=== PATIENT | male | born 1940 | race Caucasian/White ===

== ENCOUNTER 2016-04-12 15:18 | Emergency (ER) | payer MEDICARE ==
[~2016-04-12 15:18] MED LIST: ASPI-628 PO; ATOR20TA PO; HYDR25TA4 PO; LOSA25TA21 PO; Metoprolol Tartrate PO
[2016-04-12] MEDS ORDERED: fentaNYL-PF 50 mCg/mL 2 mL Inj ONE (15:27)
[2016-04-12] MEDS ORDERED: Vecuronium 1,000 mCg/mL 10 mL Inj ONE (15:28)
--- NOTE | 2016-04-12 15:28 | ED.REPORT ---
HPI-General Illness Date of Service Apr 12, 2016 ED Provider: Sukh Erick Patient is a 75 year old male who presents to the ED via EMS intubated s/p an unwitnessed to ground and becoming unresponsive. He was last known normal at 1440 when he was sitting on the couch watching TV. His went to go get the mail and when she returned, he was on the ground, unresponsive, and bleeding from his mouth. Per , he has not had a fever, numbness, or any other symptoms. also reports that he was normal today but was fatigued with a headache. EMS reports that he has not had vocalizations and his only movements have been some eye fluttering. He was given 20 etomidate and 200 succs en route. He is not anticoagulated but does take 81mg Aspirin daily. Nursing Notes Stated Complaint: INTUBATED Nursing Notes Reviewed: Yes Allergies: Coded Allergies: Penicillins (Verified Allergy, Unknown, 10/10/13) Scheduled ([Metoprolol Tartrate]) 25 MG TABLET 25 MG PO BID Aspirin (Aspir 81) 81 Mg Tablet.dr 81 MG PO DAILY Atorvastatin (Lipitor) 20 Mg Tablet 40 MG PO HS Hydrochlorothiazide (Hydrochlorothiazide) 25 Mg Tablet 25 MG PO DAILY Lisinopril (Lisinopril) 20 Mg Tablet 20 MG PO DAILY Losartan Potassium (Losartan Potassium) 25 Mg Tablet 25 MG PO DAILY General Time Seen by MD: 15:28 Chief Complaint Other (Unresponsive ) Hx Obtained From: Spouse, EMS Arrived By: Ambulance Sudden in Onset?: Yes Onset Occurred: 31 - 45 minutes ago Symptom Duration: Since onset Past Medical History Past Medical History NC- nonstemi Reports: Coronary artery disease, Hyperlipidemia, Hypertension, Stroke Past Surgical History Kidney stone removal Review of Systems Unable to Obtain ROS Intubated Physical Exam Vital Signs Vital Signs Date Time Temp Pulse Resp B/P Pulse Ox O2 Delivery O2 Flow Rate FiO2 04/13/16 00:08 75 20 132/73 100 Mechanical Ventilator ET Tube 04/12/16 15:58 100 t 35.8 BP 174/115, HR 87 Initial VS: Reviewed General/Constitutional: Well-developed Head / Eyes: Atraumatic ENT: Mucous membranes moist Neck: Supple Respiratory: Breath sounds normal Skin: Warm, Dry Alertness: Positive: Unresponsive Head / Eyes: Atraumatic, Normocephalic Trauma - Eye Specific: Negative: Raccoon eyes fasciculation around eyes ENT: Mucous membranes moist Mouth: Positive: Tongue abnormal Intubated. May have bit tongue Neck: Atraumatic Respiratory / Chest: Breath sounds = bilat Resp Distress / Stridor: Positive: Intubated Cardiovascular: Heart rate NL, Regular rhythm, Heart sounds NL, No gallop, No murmurs, No rubs Abdomen: Atraumatic, Soft, BS normoactive, No palpable mass, No pulsatile mass Skin: Atraumatic, Color NL, No rash, Warm, Dry Mental Status: Positive: Unresponsive Bilateral knee jerks Flaccid x4 No spontaneous movement Some responsiveness. Interpretation & Diagnostics Interpretation & Diagnostics: CT angiogram chest negative for PE, consilidation or atelectasis in bilateral lung bases. ABG on vent 100% 7.25/49/71.3/21- rate increased from 10-20 Lab Results Interpretation Result Diagram: 04/12/16 1529 04/12/16 1529 Test 04/12/16 15:29 04/12/16 16:05 04/12/16 16:57 White Blood Count 18.7th/mm3 (3.8-10.1) Red Blood Count 5.43mil/mm3 (4.40-5.80) Hemoglobin 15.8g/dL (13.8-17.2) Hematocrit 47.4% (41.0-50.0) Mean Corpuscular Volume 87.3fL (81-100) Mean Corpuscular Hemoglobin 29.1pg (27.0-35.0) Mean Corpuscular Hemoglobin Concent 33.3% (32.0-37.0) Red Cell Distribution Width 12.8% (12.3-15.4) Platelet Count 295bil/L (150-400) Neutrophils (%) (Auto) 68.8% (40-74) Lymphocytes (%) (Auto) 18.1% (14-46) Monocytes (%) (Auto) 10.1% (4-12) Eosinophils (%) (Auto) 0.5% (0-5) Basophils (%) (Auto) 1.0% (0-3) Sodium Level 144mEq/L (134-144) Potassium Level 3.8mEq/L (3.5-5.2) Chloride Level 102mEq/L (97-108) Carbon Dioxide Level 14mmol/L (18-29) Blood Urea Nitrogen 15mg/dL (8-27) Creatinine 1.23mg/dL (0.76-1.27) Estimat Glomerular Filtration Rate 61mL/min (>59) Glucose Level 147mg/dL (60-99) Calcium Level 8.7mg/dL (8.5-10.1) Total Bilirubin 0.5mg/dL (0.0-1.2) Aspartate Amino Transf (AST/SGOT) 22U/L (0-50) Alanine Aminotransferase (ALT/SGPT) 15U/L (0-44) Alkaline Phosphatase 63U/L (25-160) Troponin T < 0.010ug/L (0.0-0.011) Total Protein 8.0g/dL (6.4-8.4) Albumin 4.3g/dL (3.4-5.0) Hold Purple Top Tube Received (Received) Prothrombin Time 10.7sec (8.1-12.5) Prothromb Time International Ratio 1.00ratio Activated Partial Thromboplast Time 24.7sec (22.8-33.0) Hold Red Top Tube Received (Received) Hold [place] Top Tube Received (Received) Hold [place] Top Tube Received (Received) Urine Color Yellow (YELLOW) Urine Appearance Clear (CLEAR,HAZY) Urine pH 8.0 (5.0-8.0) Urine Specific [place] 1.020 (1.003-1.035) Urine Protein 300mg/dL (NEG,TRACE) Urine Glucose (UA) 500mg/dL (NEGATIVE) Urine Ketones Negativemg/dL (NEGATIVE) Urine Occult Blood Large (NEGATIVE) Urine Nitrite Negative (NEGATIVE) Urine Bilirubin Negative (NEGATIVE) Urine Urobilinogen Normalmg/dL (NORMAL) Urine Leukocyte Esterase Negative (NEGATIVE) Urine RBC 3-10/hpf (0-2) Urine WBC 0-5/hpf (0-5) Urine Epithelial Cells None/hpf (NONE-MOD) Urine Crystals None seen (NONE SEEN) Urine Bacteria None/hpf (NONE-FEW) Urine Hyaline Casts None/lpf (NONE) Urine Granular Casts None seen (NONE SEEN) Urine Waxy Casts None seen (NONE SEEN) Urine Red Blood Cell Casts None seen (NONE SEEN) Urine White Blood Cell Casts None seen (NONE SEEN) Urine Mucus None seen (None Seen) Urine Trichomonas None seen (NONE SEEN) Urine Yeast None (NONE SEEN) Urinalysis Comment None Urine Culture Reflexed Indicated ECG Interpretation ECG Interpretation: sinus rate [address] changes Time: 15:55 Interpreted by: ED physician ECG Interpretation: afib with occasional premature beats rate 144 Time: 16:25 Interpreted by: ED physician ECG Interpretation: Interpreted by Dr. Vega Normal sinus rhythm rate 70 T wave inversion in V4 No ST changes Time: 22:18 Interpreted by: ED physician Normal ECG Interpretation: No acute ischemic changes X-Ray Chest Interpretation Chest Xray Interpretation: IMPRESSION: Limited examination demonstrating tip of ETT in expected location. Dictated by: Sirena Javier M.D. on 04/12/2016 at 16:17 Approved by: Sirena Javier M.D. on 04/12/2016 at 16:18 View: Portable, 1 view Interpretation / Wet Read by: Interpret - Radiologist CT Head Interpretation IMPRESSION: No acute intracranial abnormality. Findings discussed with Dr. Luz on 04.12.16 at 1601 hrs. This study fulfills neurological imaging criteria for inclusion or exclusion of acute stroke therapies based on available published neurological guidelines. Dictated by: Sirena Javier M.D. on 04/12/2016 at 15:58 Approved by: Sirena Javier M.D. on 04/12/2016 at 16:01 Study: Head CT no contrast Interpretation / Wet Read by: Interpret - Radiologist, Discussed w radiologist CT C-Spine Interpretation IMPRESSION: Mild degenerative change. No acute cervical spine injury. Dictated by: Ivy Valdez M.D. on 04/12/2016 at 18:02 Approved by: Ivy Valdez M.D. on 04/12/2016 at 18:04 Study type: CT no contrast Interpretation / Wet Read by: Interpret - Radiologist Re-Eval/Medical Decision Med Decision/Clinical Course A 75-year-old man with a history of stroke and no documented history of atrial fibrillation that I am aware of. He was brought in by EMS after he experienced an abrupt alteration in his level of consciousness requiring intubation in the field. Emergency department his examination was atraumatic except for a little bit of bleeding in the mouth looked as though he has bit his tongue. We noted some movement which did not appear to be clearly purposeful and did not clearly lateralize. He was extremely hypertensive initially this was treated with sedation and a nicardipine drip. He subsequently developed atrial fibrillation with rapid ventricular response. This was managed with a Cardizem bolus and drip bolus 20 mg and drip at 5. His blood pressure came down after we started him on propofol for sedation. The nicardipine drip was discontinued. He was noted to have an unanticipated high A-a gradient arterial blood gas and a CT angiogram was performed which is negative for pulmonary embolism. His labs are remarkable for a leukocytosis and low bicarbonate, that plus the appearance of the tongue raises concern in my mind for a new onset seizure disorder. His mental status and ongoing need for sedation I have concerns for nonconvulsive status. I believe this patient requires care at a center with the neurologic ICU and the ability to do acute EEG monitoring. This was explained to the family and they are in agreement. He is now hemodynamically stabilized and I believe appropriate for transfer via critical care ground unit. We contacted the [facility] nursing unit coordinator Dr. Taco Huertas who has approved transfer to an acute care facility. We anticipate the patient will be going to [facility]. I have assumed care of this patient who is a 75-year-old male who is intubated for GCS of 4 after possible seizure. I have discussed the case with neuro intensive care unit doctor Kathy who has accepted the patient. He was no longer in atrial fibrillation when I assumed his care, and performed an EKG which showed normal sinus rhythm. His Cardizem drip was stopped as a result of this. He was tolerating his intubation well with propofol and was transferred to [facility] for further care. Time of Eval: 16:35 Patient Status: Condition unchanged Re-Evaluation/Progress Note: Rechecked patient. Hypertensive and afib with ventricular response. Spouse is asking that we be more aggressive with sedation. Time of Eval: 16:46 Re-Evaluation/Progress Note: Rate controlled. Moving extremities spontaneously but not to command Time of Eval: 17:15 Re-Evaluation/Progress Note: Rechecked patient. Systolic pressure is down to 120 so we will discontinue cardipine. denies that the patient had residual paralysis after his stroke. Time of Eval: 17:44 Re-Evaluation/Progress Note: Rechecked patient. Discussed desire to transfer to acute care facility with family. Family understands and agrees with plan. All questions addressed at this time. Counseled Regarding: Diagnosis, Lab results, Need for transfer Discharge & Departure Shift Change Sign-Out Patient Care Transferred: Yes Discussed Complaint(s): Yes Laboratory Evaluation: Back, reviewed by me Imaging Studies: Imaging discussed Awaiting call for transfer. Primary Impression: Altered mental status Altered mental status type: coma Coma depth: Miladys coma 3-8 Qualified Code: R40.243 - Miladys coma scale score 3-8 Additional Impressions: Atrial fibrillation with rapid ventricular response Hypertensive urgency Disposition: Transfer, Acute Care Facility Call returned time (2047) Receiving Hospital: [facility] Still awaiting call back on bed/recieving MD at 2006. Dr Vega aware of patinet and will take call. 20:50 - Dr. Vega was able to contact [facility]. Dr. Chio Chavez of [facility] accepts the patient Transfer Accepted: Yes Transfer Accepted at: 20:48 Transfer Reason: Higher level of care Patient Status: Stable for transfer Patient Informed: Unable Discharge Condition All VS Reviewed: Yes Condition: Stable Referrals: Henry Jose DO (PCP) Crit Care Except Billable Proc Time Spent: 75-104 minutes Services Performed: Patient management by me, Time spent at bedside, Reviewing test results, Reviewing imaging, Discussing patient care, Documentation in record, Time with fam/surrogate Scribe Attestation Portions of this note were transcribed by Clara Graham. I, Dr. Luz personally performed the history, physical exam and medical decision-making; I reviewed and confirmed the accuracy of the information in the transcribed note. Signed by: Clara Graham 04/12/16, 1811 copies to: Henry Jose Donald L MD Apr 12, 2016 15:28 CLARA GRAHAM Apr 12, 2016 15:43 RYAN STOCK Apr 12, 2016 20:52 Carolina Vega MD Apr 13, 2016 01:07
[2016-04-12] MEDS ORDERED: Vecuronium 1,000 mCg/mL 10 mL Inj IVPUSH ONE (15:30)
[2016-04-12] MEDS ORDERED: NiCARdipine Inj 25 MG in Dextrose 5% 240 ML IV SCH (15:30)
[2016-04-12] MEDS ORDERED: fentaNYL-PF 50 mCg/mL 2 mL Inj IVPUSH ONE ×2 (15:30→17:15)
[2016-04-12 15:33] LABS: EOSINOPHILS % (AUTO) 0.5 % (0-5); MONOCYTES % (AUTO) 10.1 % (4-12); Mean Corpuscular Hemoglobin 29.1 pg (27.0-35.0); Mean Corpuscular Volume 87.3 fL (81-100); NEUTROPHILS % (AUTO) 68.8 % (40-74); Platelet Count 295 bil/L (150-400)
[2016-04-12] MEDS ORDERED: 0.9% Sodium Chloride 500 ML ONE (15:39)
[2016-04-12 15:58] VITALS: O2SAT 100
--- NOTE | 2016-04-12 16:03 | DRSVH ---
PROCEDURE: CT BRAIN (TPA) ([id number]) INDICATIONS: Stroke TECHNIQUE: Noncontrast 4.5 mm thick angled axial sections acquired from the foramen magnum to the vertex, with c oronal reformats. COMPARISON: None. FINDINGS: Image quality: Excellent. CSF spaces: Basal cisterns are patent. No extra-axial fluid collections. The ventricles are symmet lexie in size and shape. Brain: No intracranial bleeds or masses. There is cerebral volume loss for age, with resultant vent ricular and sulcal prominence. There are periventricular and deep white matter chronic small vessel ischemic changes. There is intracranial internal carotid artery atherosclerosis. Skull and face: Calvarium and visualized facial bones appear intact, without suspicious lesions. Sinuses: Visualized sinuses and mastoids are clear. IMPRESSION: No acute intracranial abnormality. Findings discussed with Dr. Luz on 04.12.16 at 1601 h rs. This study fulfills neurological imaging criteria for inclusion or exclusion of acute stroke therapie s based on available published neurological guidelines. Dictated by: Sirena Javier M.D. on 04/12/2016 at 15:58 Approved by: Sirena Javier M.D. on 04/12/2016 at 16:01
[2016-04-12] MEDS ORDERED: Propofol Inj 1,000,000 MCG in IV Premix 1 EACH IV SCH (16:11)
[2016-04-12] MEDS ORDERED: Propofol 10,000 mCg/mL 100 mL Inj ONE (16:16)
[2016-04-12 16:19] LABS: TROPONIN T < 0.010 ug/L (0.0-0.011)
--- NOTE | 2016-04-12 16:20 | DRSVH ---
PROCEDURE: X-RAY CHEST ONE VIEW, PORTABLE ([id number]) INDICATIONS: intubated TECHNIQUE: One view of the chest was acquired. COMPARISON: [facility], , CHEST 1VW (PORTABLE), 10/04/2013, 16:03. FINDINGS: Lower thorax included in the examination. Surgical changes and devices: ETT is present, tip of which is in expected location. Lungs and pleura: No pleural effusions or pneumothorax as visualized. Lungs are clear as visualized . Mediastinum: Mediastinal contours appear normal. Heart size is normal. Bones and chest wall: No suspicious bony lesions. Overlying soft tissues appear unremarkable. IMPRESSION: Limited examination demonstrating tip of ETT in expected location. Dictated by: Sirena Javier M.D. on 04/12/2016 at 16:17 Approved by: Sirena Javier M.D. on 04/12/2016 at 16:18
[2016-04-12] MEDS ORDERED: Diltiazem Inj 125 MG in Dextrose 5% 100 ML IV SCH (16:35)
[2016-04-12] MEDS ORDERED: Diltiazem 5 mg/mL 5 mL Inj IVPUSH ONE (16:35)
[2016-04-12] MEDS ORDERED: Diltiazem 5 mg/mL 5 mL Inj ONE (16:35)
[2016-04-12 17:10] LABS: APPEARANCE,URINE CLEAR (CLEAR,HAZY); COLOR,URINE YELLOW (YELLOW); OCCULT BLOOD,URINE LARGE (NEGATIVE)
[2016-04-12 17:11] LABS: UROBILINOGEN,URINE NORMAL (NORMAL)
--- NOTE | 2016-04-12 17:43 | ABG ---
DateTimeAnalyzed 17:37:00 -_ pH ____7.252 - 7.350 7.450 pCO2 ___49.4__ -mmHg 35.0 45.0 pO2 ___71.3__ -mmHg 69.0 116 HCO3- ___21.0__ -mmol/L 22.0 26.0 ABE ___-6.2__ -mmol/L -2.0 2.0 tHb ___15.8__ -g/dL O2Hb ___89.9__ -% COHb ____0.8__ -% MetHb ____1.2__ -% sO2 ___91.7__ -% 25.0 FIO2 __100.0__ -% PEEP ____5.0__ -cmH2O Set_RR ___18.0__ -b/min Drawn By JJ - Date/Time Notified____ 17:43:00 -_ Spontaneous_RR ___18.0__ -b/min A/C __500.0__ - Oxygen Device 1 VENTILATOR - Notified By JJ - Notified Whom _DR SLACK - B 761 -mmHg tO2 ___20.0__ -Vol% Reed test _Positive -
--- NOTE | 2016-04-12 18:06 | DRSVH ---
PROCEDURE: CT CERVICAL SPINE WITHOUT CONTRAST ([id number]) INDICATIONS: fall, aloc TECHNIQUE: Noncontrast 3 mm thick sections acquired from the skull base to the T4 level. Sagittal and coronal r eformats were then constructed. For radiation dose reduction, the following was used: automated exp osure control, adjustment of mA and/or kV according to patient size. COMPARISON: None. FINDINGS: Image quality: Excellent. Bones: No fractures or dislocations. There are mild degenerative changes throughout the cervical spi ne including intervertebral disc space narrowing, endplate sclerosis, and osteophytosis. Visualized s uperior ribs are intact. Soft tissues: Prevertebral soft tissues are normal in thickness. No paravertebral hematomas. No ap ical pneumothoraces. IMPRESSION: Mild degenerative change. No acute cervical spine injury. Dictated by: Ivy Valdez M.D. on 04/12/2016 at 18:02 Approved by: Ivy Valdez M.D. on 04/12/2016 at 18:04
[2016-04-12] MEDS ORDERED: LISI-567 PO (18:34)
--- NOTE | 2016-04-12 18:36 | DRSVH ---
PROCEDURE: CT ANGIO CHEST PULMONARY EMBOLISM ([id number]) INDICATIONS: collapse, high A-a gradient TECHNIQUE: After the administration of intravenous contrast, 2 mm thick sections acquired from the pulmonary api crys to the posterior costophrenic angles. 3-dimensional maximum intensity projection (MIP) coronal a nd sagittal reformats were then acquired through the thorax. For radiation dose reduction, the follo wing was used: automated exposure control, adjustment of mA and/or kV according to patient size. COMPARISON: None. FINDINGS: Image quality: Excellent. Pulmonary arteries: Pulmonary arteries are normal in size, and demonstrate no intraluminal filling d efects to suggest central pulmonary embolism. Lungs and pleura: Lung volumes are low. Consolidation or dense atelectasis is present at the bilatera l lung bases. No pleural effusion. No pneumothorax. Patient is intubated. Mediastinum: Heart size is mildly enlarged, without pericardial effusion. No mediastinal or hilar a denopathy. Thoracic aorta is normal in caliber and enhancement. Scattered atheromatous calcification s are present within the aortic arch. Esophagus is normal in caliber, without hiatal hernia. Bones and chest wall: No suspicious bony lesions. Ribs and thoracic spine appear intact throughout. Thyroid gland is unremarkable. No axillary or supraclavicular adenopathy. Abdomen: Visualized upper abdominal solid organs appear normal in the early arterial phase of enhanc ement. IMPRESSION: 1. No acute pulmonary embolus. 2. Dependent basilar consolidation or dense atelectasis. 3. Mild cardiomegaly. Dictated by: Ivy Valdez M.D. on 04/12/2016 at 18:32 Approved by: Ivy Valdez M.D. on 04/12/2016 at 18:35
[2016-04-13 00:08] VITALS: BP 132/73; PULSE 75; RESP 20; O2SAT 100
== END 2016-04-12 23:50 | disposition short-term general hospital (02) ==
LOC: SED 15:18
DX: R40.2431 Glasgow coma scale score 3-8, in the field [EMT or ambulance] (principal); I48.91 Unspecified atrial fibrillation; I10 Essential (primary) hypertension; I25.2 Old myocardial infarction; I25.10 Atherosclerotic heart disease of native coronary artery without angina pectoris; E78.5 Hyperlipidemia, unspecified; Z86.73 Personal history of transient ischemic attack (TIA), and cerebral infarction without residual deficits; Z87.442 Personal history of urinary calculi; Z79.82 Long term (current) use of aspirin; Z88.0 Allergy status to penicillin
CPT/HCPCS: 36415; 36620; 70450; 71010; 71275; 72125; 80053; 81000; 82375; 82803; 84484; 85025; 85610; 85730; 87070; 87086; 87205; 93005; 94002; 94799; 96365; 96366; 96368; 96375; 99291; 99292; J7040; Q9967

== ENCOUNTER 2016-04-20 23:25 | Inpatient (IN) | payer MEDICARE ==
[~2016-04-20] VITALS: Ht 172.7 cm; Wt 89.9 kg
[~2016-04-20 23:25] MED LIST changes: +LISI-567 PO
--- NOTE | 2016-04-20 23:26 | ED.REPORT ---
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 The patient was sitting up when the episode occurred, with EMS finding him bradycardic. They were unable to obtain a blood pressure initially, but were successful after laying him down, with a systolic pressure in the 130s. Patient was subsequently found to be in atrial fibrillation. Urinalysis was ordered on the patient today, which was suspicious for a UTI. Patient was recently transferred to [facility] from [facility] following an acute CVA. He was discharged from their facility to [facility] for rehabilitation of speech and motor. Patient is nonverbal during ED visit and is unable to provide any history. Nursing Notes Stated Complaint: HYPOTENSION/WEAKNESS Nursing Notes Reviewed: Yes Allergies: Coded Allergies: Penicillins (Verified Allergy, Unknown, 04/20/16) Scheduled ([Metoprolol Tartrate]) 25 MG TABLET 25 MG PO BID Aspirin (Aspir 81) 81 Mg Tablet.dr 81 MG PO DAILY Atorvastatin (Lipitor) 20 Mg Tablet 40 MG PO HS Hydrochlorothiazide (Hydrochlorothiazide) 25 Mg Tablet 25 MG PO DAILY Lisinopril (Lisinopril) 20 Mg Tablet 20 MG PO DAILY Losartan Potassium (Losartan Potassium) 25 Mg Tablet 25 MG PO DAILY General Time Seen by MD: 23:26 Chief Complaint Other (syncope, hypotension) Hx Obtained From: EMS Unable to Obtain Hx: Mental status Arrived By: Ambulance Sudden in Onset?: No Symptom Duration: Since onset Recent Healthcare: No recent doctor visit, No recent hospitalization Past Medical History Past Medical History Encephalopathy, 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, with recent admission to [facility] (Mar 2016) Seizures: likely due to CVAs Atrial fibrillation coronary artery disease with prior NSTEMI Reports: Hyperlipidemia, Hypertension, Stroke Past Surgical History Kidney stone removal Smoking History Unknown if Ever Smoker Social History Lives at [facility] Other Social History: Lives in [facility], Local resident Ambulatory Status Independent Review of Systems Unable to Obtain ROS Mental status Physical Exam Vital Signs Vital Signs Date Time Temp Pulse Resp B/P Pulse Ox O2 Delivery O2 Flow Rate FiO2 2/2/17 02:39 90 20 117/56 93 Simple Mask 8 04/21/16 01:17 98 16 110/74 93 Nasal Cannula 2 04/20/16 23:45 93 Nasal Cannula 2 04/20/16 23:34 36.5 105 16 109/64 88 Room Air Initial VS: Reviewed Extremities: Vascular intact, Neuro intact, No swelling Skin: Warm, Dry, No cyanosis General/Constitutional: Awake Alertness: Positive: Obtunded Appearance / Presentation: Positive: Obese squinches eyes in efforts to open them, sometimes mumbling snoring intermittently, hypoxemic when he does so Head / Eyes: Normocephalic, PERRL ENT: Airway patent, Mucous membranes moist Neck: Supple, No JVD Respiratory / Chest: Breath sounds NL, Breath sounds = bilat, No respiratory distress, No rales, No rhonchi, No wheezing Cardiovascular: Heart rate NL, Regular rhythm, No murmurs Abdomen: Soft Tenderness/Guarding/Rebound: Positive: Tender diffuse Bowel Sounds / Distention: Positive: Distention mild Neurologic: No motor deficits appears nonfocal other than being obtunded Interpretation & Diagnostics Lab Results Interpretation Result Diagram: 04/21/16 0028 04/21/16 0028 Test 04/21/16 00:28 04/21/16 01:16 White Blood Count 14.9th/mm3 (3.8-10.1) Red Blood Count 4.64mil/mm3 (4.40-5.80) Hemoglobin 13.7g/dL (13.8-17.2) Hematocrit 40.3% (41.0-50.0) Mean Corpuscular Volume 86.9fL (81-100) Mean Corpuscular Hemoglobin 29.5pg (27.0-35.0) Mean Corpuscular Hemoglobin Concent 34.0% (32.0-37.0) Red Cell Distribution Width 12.1% (12.3-15.4) Platelet Count 284bil/L (150-400) Neutrophils (%) (Auto) 79.3% (40-74) Lymphocytes (%) (Auto) 5.0% (14-46) Monocytes (%) (Auto) 10.3% (4-12) Eosinophils (%) (Auto) 0.9% (0-5) Basophils (%) (Auto) 1.1% (0-3) Prothrombin Time 14.4sec (8.1-12.5) Prothromb Time International Ratio 1.34ratio Activated Partial Thromboplast Time 43.9sec (22.8-33.0) Sodium Level 142mEq/L (134-144) Potassium Level 3.9mEq/L (3.5-5.2) Chloride Level 105mEq/L (97-108) Carbon Dioxide Level 19mmol/L (18-29) Blood Urea Nitrogen 27mg/dL (8-27) Creatinine 1.26mg/dL (0.76-1.27) Estimat Glomerular Filtration Rate 60mL/min (>59) Glucose Level 106mg/dL (60-99) Lactic Acid Level 1.4mmol/L (0.4-2.0) Calcium Level 8.7mg/dL (8.5-10.1) Phosphorus Level 3.1mg/dL (2.5-4.9) Magnesium Level 2.1mg/dL (1.6-2.6) Total Bilirubin 0.8mg/dL (0.0-1.2) Aspartate Amino Transf (AST/SGOT) 26U/L (0-50) Alanine Aminotransferase (ALT/SGPT) 26U/L (0-44) Alkaline Phosphatase 54U/L (25-160) Troponin T 0.084ug/L (0.0-0.011) Pro-B-Type Natriuretic Peptide 5999pg/mL (0-376) Total Protein 7.3g/dL (6.4-8.4) Albumin 3.1g/dL (3.4-5.0) Lipase 31U/L (13-60) Procalcitonin 0.23ng/mL (0.00-0.08) Urine Color Dark yellow (YELLOW) Urine Appearance Slightly cloudy Urine pH 5.5 (5.0-8.0) Urine Specific Hobbs 1.025 (1.003-1.035) Urine Protein 30mg/dL (NEG,TRACE) Urine Glucose (UA) Negativemg/dL (NEGATIVE) Urine Ketones 15mg/dL (NEGATIVE) Urine Occult Blood Large (NEGATIVE) Urine Nitrite Negative (NEGATIVE) Urine Bilirubin Negative (NEGATIVE) Urine Urobilinogen Normalmg/dL (NORMAL) Urine Leukocyte Esterase Negative (NEGATIVE) Urine RBC >50/hpf (0-2) Urine WBC 0-5/hpf (0-5) Urine Epithelial Cells Occasional/hpf (NONE-MOD) Urine Crystals Amorphous urates (NONE Urine Bacteria None/hpf (NONE-FEW) Urine Hyaline Casts Rare/lpf (NONE) Urine Granular Casts None seen (NONE SEEN) Urine Waxy Casts None seen (NONE SEEN) Urine Red Blood Cell Casts None seen (NONE SEEN) Urine White Blood Cell Casts None seen (NONE SEEN) Urine Mucus Present (None Seen) Urine Trichomonas None seen (NONE SEEN) Urine Yeast None (NONE SEEN) Urine Culture Reflexed Not indicated ECG Interpretation ECG Interpretation: Atrial fibrillation, Rate 88 Ventricular premature complex atrial fibrillation is new compared to prior EKG on 04/12/2016 Time: 23:58 Interpreted by: ED physician X-Ray Chest Interpretation Chest Xray Interpretation: Impression: Left lower lobe pneumonia. View: Portable Interpretation / Wet Read by: Wet read ED physician CT Head Interpretation CONCLUSION: Mild cerebral/cerebellar atrophy and moderate chronic small vessel disease with no acute intracranial abnormality. Radiologist: Tavo Anthony DO 04/21/2016 - 2:31:37 AM [facility] Study: Head CT no contrast Interpretation / Wet Read by: Interpret - Radiologist CT Abd / Pelvis Interpretation CONCLUSION: No definite acute abdominopelvic abnormality. Hyperdense posterior right hepatic lobe focus is noted and may represent a transient hyperattenuating defect. Ultrasound could evaluate to exclude underlying lesion. Bibasal atelectasis and effusions partially visualized. Bilateral renal cysts. Non-emergent incidental finding unrelated to the primary process found in this case. Follow-up recommended. Radiologist: Tavo Anthony DO 04/21/2016 - 2:36:18 AM [facility] Study type: Abdominal CT IV contrast Interpretation / Wet Read by: Interpret - Radiologist Re-Eval/Medical Decision Med Decision/Clinical Course 75-year-old with chronic encephalopathy presents after syncopal episode and hypotension. Troponin is elevated and will need trending. X-ray reveals a left lower lobe infiltrate. Urine is unremarkable except for blood after a catheter specimen was obtained. He is begun with Rocephin rather than Zosyn since he is penicillin allergic, but also clindamycin for presumptive aspiration, and Zithromax and for atypicals. Transported now in improved condition. DO NOT RESUSCITATE status confirmed. Source of Hx: Old records Time of Eval: 02:31 Patient Status: Condition improved Re-Evaluation/Progress Note: Rechecked the patient, who remains stable. Patient will be admitted to the hospital for further care. Patient's is now present and able to provide more history. Patient is now able to speak but is still not able to provide history. All questions were addressed. Consultation : Referral / Consult Name: Contreras Pena MD Consulted With: Hospitalist Call Returned at: 02:31 Auto Detailer: Will see patient, Agrees with eval, Agrees with plan, Accepts admit Note: Spoke with Dr. Pena, hospitalist, who agrees to accept admit. Counseled Regarding: Diagnosis, Lab results, Need for admission Discharge & Departure Primary Impression: Left lower lobe pneumonia Pneumonia type: due to unspecified organism Qualified Code: J18.9 - Pneumonia, unspecified organism Additional Impression: Elevated troponin Disposition: ADMITTED TO HOSPITAL Discharge Condition All VS Reviewed: Yes Condition: Stable Referrals: Henry Jose DO (PCP) Bob Attestation Portions of this note were transcribed by Elham Enriquez. I, Dr. Nguyen personally performed the history, physical exam and medical decision-making; I reviewed and confirmed the accuracy of the information in the transcribed note. Signed by: Bob Danielson, 04/20/2016 0359 copies to: Henry Jose Christopher W MD Apr 20, 2016 23:26 Elham Enriquez Apr 20, 2016 23:50
[2016-04-20] MEDS ORDERED: 0.9% Sodium Chloride 1,000 ML IV ONE (23:31)
[2016-04-20 23:34] VITALS: BP 109/64; PULSE 105; RESP 16; O2SAT 88
[2016-04-20] MEDS ORDERED: cefTRIAXone Inj 2,000 MG in Dextrose 5% Minibag Plus 50 ML IV ONE (23:35)
[2016-04-20 23:45] VITALS: O2SAT 93
[2016-04-21] VITALS (11 sets, daily range): BP systolic 110–160; BP diastolic 56–90; PULSE 66–98; RESP 16–20; O2SAT 93–97
--- NOTE | 2016-04-21 00:29 | ABG ---
DateTimeAnalyzed 00:22:41 -_ pH ____7.399 - 7.350 7.450 pCO2 ___35.3__ -mmHg 35.0 45.0 pO2 ___76.9__ -mmHg 70.0 100 HCO3- ___21.8__ -mmol/L 22.0 26.0 ABE ___-2.6__ -mmol/L -2.0 2.0 tHb ___13.4__ -g/dL 12.0 18.0 O2Hb ___94.0__ -% 95.0 COHb ____1.2__ -% 1.5 MetHb ____0.4__ -% 0.4 1.5 sO2 ___95.5__ -% 25.0 FIO2 ___28.0__ -% Drawn By MM - Date/Time Notified____ 00:29:00 -_ Spontaneous_RR 18 -b/min Liter_Flow ____2.00_ -L/min Oxygen Device 1 __CANNULA - Notified Whom alves, christopher - B 762 -mmHg K+ ____3.6__ -mmol/L tO2 ___17.7__ -Vol%
[2016-04-21 00:39] LABS: Mean Corpuscular Hemoglobin 29.5 pg (27.0-35.0); Mean Corpuscular Volume 86.9 fL (81-100); Platelet Count 284 bil/L (150-400)
[2016-04-21 00:53] LABS: BASOPHILS % (AUTO) 1.1 % (0-3); EOSINOPHILS % (AUTO) 0.9 % (0-5); MONOCYTES % (AUTO) 10.3 % (4-12); NEUTROPHILS % (AUTO) 79.3 % (40-74)
[2016-04-21 00:58] LABS: INR 1.34 ratio
[2016-04-21 01:26] LABS: APPEARANCE,URINE SLIGHTLY CLOUDY (CLEAR,HAZY); COLOR,URINE DARK YELLOW (YELLOW); OCCULT BLOOD,URINE LARGE (NEGATIVE); PH,URINE 5.5 (5.0-8.0); UROBILINOGEN,URINE NORMAL (NORMAL)
[2016-04-21 01:30] LABS: Magnesium 2.1 mg/dL (1.6-2.6); Phosphorus 3.1 mg/dL (2.5-4.9)
[2016-04-21] MEDS ORDERED: Clindamycin Inj 900 MG in IV Premix 1 EACH IV ONE (01:45)
[2016-04-21] MEDS ORDERED: Azithromycin Inj 500 MG in Dextrose 5% w/Vial Mate 250 ML IV ONE (01:45)
[2016-04-21 02:07] LABS: TROPONIN T 0.084 ug/L (0.0-0.011)
[2016-04-21] MEDS ORDERED: 0.9% Sodium Chloride 1,000 ML IV SCH ×2 (02:44)
[2016-04-21] MEDS ORDERED: Vancomycin Dose per Pharmacist XX SCH (02:45)
[2016-04-21] MEDS ORDERED: Polyethylene Glycol (PEG) 17 Gm Powder PO PRN (02:45)
[2016-04-21] MEDS ORDERED: Alum-Mag Hydrox-Simeth 30 mL Suspension PO PRN (02:45)
[2016-04-21] MEDS ORDERED: Ondansetron 2 mg/mL 2 mL Inj IVPUSH PRN (02:45)
--- NOTE | 2016-04-21 04:03 | PCM.HPMED ---
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 Per ED recs, "The patient was sitting up when the episode occurred, with EMS finding him bradycardic. They were unable to obtain a blood pressure initially, but were successful after laying him down, with a systolic pressure in the 130s. Urinalysis was ordered on the patient today, which was suspicious for a UTI. Patient is nonverbal at baseline and is unable to provide any history." Patient' s at bedside at time of this interview, reports patient was conversant and independent prior to the recent onset of CVA on 04/12/16. Patient was transferred to [facility] and recently discharged to [facility] for rehabilitation. Per , the patient has not been compliant with his medications in the prior 2-3 weeks of the CVA incident. No recent antibiotic use. In the ED, vitals T36.5, P105, RR16, BP109/64, 88% on RA. Labs significant for WBC 14.9, Procalcitonin 0.23. Lactic acid 1.4. UA negative. CXR shows left lower lobe pneumonia. ABG normal. Patient admitted for further treatment and management. Review of Systems: Unable to obtain ROS due to patient being obtunded. 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 Social History Hx Alcohol Use: No Hx Substance Use: No Smoking Status: Unknown if Ever Smoker Living Arrangement: Assisted Living Exam Vital Signs Vital Sign - Last Date Time Temp Pulse Resp B/P Pulse Ox O2 Delivery O2 Flow Rate FiO2 04/21/16 01:17 98 16 110/74 93 Nasal Cannula 2 04/20/16 23:34 36.5 Intake and Output 04/20/16 04/20/16 04/21/16 Cumulative From/Thru 15:00 23:00 07:00 04/20/16 23:34 - 04/20/16 23:55 Intake Total 1000 ml 1000 ml Balance 1000 ml 1000 ml Intake IV Total 1000 ml 1000 ml Exam GEN: Obese obtunded patient. Responds to painful stimuli with mumbles. NAD. HEENT: NC/AT, PERRL, sclera anicteric Neck: Supple, no JVD, no bruits CV: Irregular, irregular, no murmurs appreciated, distant heart sounds Lungs: CTAB, no wheezes Abd: Soft, obese, non-tender, mildly distended, normal active bowel tones Skin: Warm, dry and intact, no rashes or lesions Ext: No edema, cyanosis or clubbing Neuro: obtunded, does move both legs and arms to stimuli Lab and Diagnostics Result Diagram: 04/21/168 04/21/16 0028 X-Rays, CTs and MRIs Chest Xray Interpretation: Impression: Left lower lobe pneumonia. 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 Sepsis (P105, WBC 14.9) with pneumonia as source of infection, present on admission. Active. - UA negative - Procalcitonin 0.23 - BCx, Strep pneumo, legionella, viral PCR, MRSA swab pending - [facility] [employer] acquired pneumonia, present on admission. Active. - patient with recent hospitalization at [facility] - Ceftriaxone, clindamycin and levofloxacin started in ED - will continue treatment with Vancomycin, Cefepime and levofloxacin, consider discontinuing Vancomycin based on MRSA swab results Acute hypoxic respiratory failure, present on admission. Active. - most likely due to flu and pneumonia, cannot exclude new onset CHF with labs showing elevated BNP - oxygen sat to be kept above 92% Syncope with hypotension, present on admission. Active - CT head and abdomen pending - patient's med list with both Lisinopril and Losartan. Day team to clarify. Will hold both due to hypotension. - HCTZ held Elevated troponin, present on admission. Active - patient does not appear to be having chest pains, will trend troponin Elevated BNP, present on admission. Active. - Echocardiogram in 2013 showed EF of 60-65% with no gross wall abnormalities - Echocardiogram in am - strict I/O - standing daily weights if possible Paroxysmal atrial fibrillation, not anticoagulated, present on admission. - CHADs-vasc score 5, consider starting anticoagulation with warfarin or NOAC, patient currently on ASA 81mg - patient was found to be in a-fib at last ED visit on 04/12/16, received Cardizem bolus and drip after patient returned to R - telemetry - give Cardizem ggt if heart rate over 110 - continue home metoprolol (hold for systolic blood pressure below 120) Encephalopathy secondary to recent multiple CVAs - swallow study pending - request [facility] records in am Coronary artery disease - continue atorvastatin, metoprolol, ACEi/ARB held for hypotension PRNs - Acetaminophen as needed for mild pain/fever/headache - Bowel regimen as needed - Antiemetic as needed Patient admitted under inpatient status with expected length of stay greater than 2 midnights due to severity of presenting symptoms, risk of adverse event, and complexity of treatment plan. GI Prophylaxis: not indicated VTE Prophylaxis: Heparin subq Resuscitation Status: DNR/DNI - patient's would states this is what patient expressed when last asked, she would like this to be confirmed with patient once patient is coherent GI Prophylaxis: Not indicated VTE Prophylaxis: Sub-Q Heparin (Unfractionated) Resuscitation Status: DNR/DNI:Do Not Resuscitate/Intubate (per , this was what patient expressed at last visit, would like to confirm with patient once patient is coherent) Attending Statement The patient was seen and examined together with Dr. Otoole on 04/21 and I agree with the history, exam and plan as outlined in the note above. Facundo Otoole DO Apr 21, 2016 02:56 Contreras Pena MD Apr 21, 2016 04:14
--- NOTE | 2016-04-21 04:53 | PCM.CONPHA ---
Assessment/Plan Assessment/Plan Pharmacy Kinetic Dosing Vancomycin Indication: PNEUMONIA Vanc goal trough: 15-20 mcg/mL Pt wt: 102.3 kg Other ABX: CEFEPIME, LEVAQUIN Cultures: Blood PENDING SCr: 1.26 mg/dL Assessment/Plan: -Loading dose of Vancomycin 2 G mg given in ED for (20 mg/kg dosing) -Will continue Vancomycin 1 G Q12H (10 mg/kg dosing) with trough scheduled prior to 4th dose on @1600 Pharmacy appreciates consult and will continue to monitor. Stephenie Oseguera PharmD Apr 21, 2016 04:53
--- NOTE | 2016-04-21 05:48 | NUR ---
Arrival on Unit at 0420. Pt at bedside, she provides information about belongings. Paperwork from discharging SNF and from [facility] in chart. Pt reports discomfort while moving, incontinence, and confusion. VSS. ABX infusing IV per PNA treatment. Care continues
[2016-04-21] MEDS: Heparin 5,000 Unit/mL Inj SUBQ SCH ×2 (08:30→16:08)
[2016-04-21] MEDS: Sodium Chloride LOK Flush 10 mL Syringe IVFLUSH SCH ×2 (08:30→14:22)
[2016-04-21] MEDS ORDERED: levoFLOXacin Inj 750 MG in IV Premix 1 EACH IV SCH (08:30)
--- NOTE | 2016-04-21 08:48 | DRSVH ---
PROCEDURE: CT BRAIN WITHOUT CONTRAST ([id number]) INDICATIONS: altered ms TECHNIQUE: Noncontrast 4.5 mm thick angled axial sections acquired from the foramen magnum to the vertex, with c oronal reformats. COMPARISON: [facility], CT, BRAIN (TPA), 04/12/2016, 15:42. FINDINGS: Image quality: Excellent. CSF spaces: Basal cisterns are patent. No extra-axial fluid collections. The ventricles are symmet lexie in size and shape. Brain: No intracranial bleeds or masses. No change in small chronic left basal ganglia/villareal radiat a infarct. There is cerebral volume loss for age, with resultant ventricular and sulcal prominence. There are periventricular and deep white matter chronic small vessel ischemic changes. There is intr acranial internal carotid artery atherosclerosis. Skull and face: Calvarium and visualized facial bones appear intact, without suspicious lesions. Sinuses: Visualized sinuses and mastoids are clear. IMPRESSION: 1. No acute intracranial abnormality. 2. Volume loss and small vessel ischemic disease. 3. Small chronic left basal ganglia/villareal radiata infarct. 4. Concordant with preliminary interpretation. Dictated by: Sirena Javier M.D. on 04/21/2016 at 8:45 Approved by: Sirena Javier M.D. on 04/21/2016 at 8:46
[2016-04-21] MEDS ORDERED: Clindamycin Inj 600 MG in IV Premix 1 EACH IV SCH (09:10)
--- NOTE | 2016-04-21 09:29 | DRSVH ---
PROCEDURE: CT ABDOMEN AND PELVIS WITH CONTRAST ([id number]) INDICATIONS: altered ms TECHNIQUE: After the administration of intravenous contrast, 5 mm thick sections acquired from the diaphragm to the symphysis. 5 mm coronal and sagittal reformats were acquired. For radiation dose reduction, the following was used: automated exposure control, adjustment of mA and/or kV according to patient betty zapata. COMPARISON: [facility], CT, CT ANGIO CHEST PE, 04/12/2016, 18:12. [facility] , CT, KUB - CT (PNL), 09/20/2007, 2:12. FINDINGS: Image quality: Excellent. ABDOMEN: Lung bases: Small bilateral pleural effusions are present. There is moderate bibasilar airspace opaci ty, indicating atelectasis versus pneumonia. Heart size is normal. Solid organs: Liver and spleen are normal in size. There is an ovoid 16 mm diameter enhancing focus within the right hepatic lobe posteriorly.. Gallbladder demonstrates layering high density material w ithin its lumen. Biliary system is non dilated. Pancreas enhances normally. No adrenal nodules. B ilateral renal cysts are present, as before. Kidneys demonstrate otherwise normal size and enhancemen t, without hydronephrosis. Peritoneum and bowel: Bowel loops demonstrate normal wall thickness and caliber. No free fluid or a ir. Normal appendix. Nodes and vessels: No retroperitoneal or mesenteric adenopathy by size criteria. Aorta and inferior vena cava are normal in size. Miscellaneous: No ventral hernias. PELVIS: Genitourinary: Urinary bladder is decompressed. Miscellaneous: No inguinal hernias or adenopathy. Bones: No suspicious bony lesions. No vertebral body compression fractures. IMPRESSION: 1. Bibasilar atelectasis versus pneumonia with small bilateral pleural effusions. 2. Indeterminate enhancing focus within the right hepatic lobe posteriorly, which could represent a h emangioma or transient hepatic attenuation defect. Initial further assessment with ultrasound is stephen mmended. 3. Cholelithiasis. 4. Normal appendix. 5. Concordant with preliminary interpretation. Dictated by: Sirena Javier M.D. on 04/21/2016 at 9:23 Approved by: Sirena Javier M.D. on 04/21/2016 at 9:27
--- NOTE | 2016-04-21 09:53 | DRSVH ---
PROCEDURE: X-RAY CHEST ONE VIEW, PORTABLE ([id number]) INDICATIONS: hypotension TECHNIQUE: One view of the chest was acquired. COMPARISON: [facility], CT, CT ABD PELVIS W CON, 04/21/2016, 2:07. [facility], CR, XR CHEST 1VW (PORTABLE), 04/12/2016, 15:21. FINDINGS: Surgical changes and devices: None. Lungs and pleura: No pleural effusions or pneumothorax. Bibasilar airspace opacities present, left greater than right. Mediastinum: Mediastinal contours appear normal. Heart size is normal. Bones and chest wall: No suspicious bony lesions. Overlying soft tissues appear unremarkable. IMPRESSION: Bibasilar atelectasis versus aspiration or pneumonia. Correlate clinically. Dictated by: Reggie Correa RRA Interpreted: Marilyn Hernandez MD on 04/21/2016 at 9:52 Transcribed by: SHMUEL on 04/21/2016 at 9:52 Approved by: Marilyn Hernandez MD, PhD on 04/21/2016 at 15:50
[2016-04-21] MEDS ORDERED: ISOS30TA4 PO (11:24)
[2016-04-21] MEDS ORDERED: QUET25TA73 PO (11:26)
[2016-04-21] MEDS ORDERED: AMLO5TAB2 PO (11:27)
[2016-04-21] MEDS ORDERED: DABI150C PO (11:29)
[2016-04-21] MEDS ORDERED: METO100T3 PO (11:29)
[2016-04-21] MEDS ORDERED: POLY17PO6 PO (11:31)
[2016-04-21] MEDS ORDERED: ACET325T51 PO (11:32)
--- NOTE | 2016-04-21 13:54 | NUR ---
Social Work Attempted Initial Assessment: SW met with patient at bedside to discuss discharge plan. Patient unable to answer SW questions appropriately. SW contacted patient Alicia who to arrive to hospital. Patient is a 75 year old male admitted on 04/21/16 for pneumonia. Patient payer as [employer]. Patient PCP as MD Jose. Patient from [facility] rehab and accepted back upon discharge per SNF rep Melany. Access provided. SW to follow up with patient to verify further information. SW to follow. PLAN: From [facility] and accepted back upon discharge. SW to follow. Beverly PERRY
[2016-04-21] MEDS: metroNIDAZOLE Inj 500 MG in IV Premix 1 EACH IV SCH (14:21)
[2016-04-21] MEDS: Cefepime Inj 2,000 MG in Dextrose 5% Minibag Plus 50 ML IV SCH (15:04)
--- NOTE | 2016-04-21 16:49 | NUR ---
ACTIVITY Patient is alert and oriented but very forgetful and needs frequent redirection. Denies pain. Diet was upgraded by speech therapy, which he tolerated well. Denies nausea. No emesis noted. Denies SOB. Patient got to the [facility] with 2 PA and a FWW. Poor tolerance to activity due to his BLE weakness. Yusuf alarm is on. PT to evaluate. Echo is ongoing at this time.
--- NOTE | 2016-04-21 17:30 | NUR ---
IV ABT IV Vanco is incompatible with current IV ABT. IVT made aware RE: Needing another line for his IV ABT. Patient refused to have another IV placed stating he has been poked too many times today. IV ABT infusing at this time. Unable to infuse IV Vanco. Care continues.
[2016-04-21] MEDS ORDERED: MeTOProlol 1 mg/mL 5 mL Inj IVPUSH PRN (18:30)
[2016-04-21] MEDS: Vancomycin Inj 1,000 MG in IV Premix 1 EACH IV SCH (22:05)
[2016-04-22] VITALS (7 sets, daily range): BP systolic 149–178; BP diastolic 82–102; PULSE 68–127; RESP 16–20; O2SAT 95–97
[2016-04-22] MEDS: Sodium Chloride LOK Flush 10 mL Syringe IVFLUSH SCH ×3 (00:30→15:52)
[2016-04-22] MEDS: Heparin 5,000 Unit/mL Inj SUBQ SCH ×2 (01:03→09:23)
[2016-04-22] MEDS: metroNIDAZOLE Inj 500 MG in IV Premix 1 EACH IV SCH ×5 (01:03→20:07)
[2016-04-22] MEDS ORDERED: 0.9% Sodium Chloride 500 ML ONE (01:52)
[2016-04-22] MEDS: Cefepime Inj 2,000 MG in Dextrose 5% Minibag Plus 50 ML IV SCH ×2 (01:56→13:44)
--- NOTE | 2016-04-22 06:00 | NUR ---
1:1 Sitter Pt impulsive and uncooperative for cares, requested sitter at approximately 2200. Pt attempts to pull IV and heart monitor off, stand at bedside, and 'get dressed to leave'. He feels he is being kept against his will, he drove himself to the hospital and will drive away. Pt is reoriented to situation and illness, advised that his family accompanied him here and approve of his treatment, and he will be allowed out of bed after therapy can evaluate him. LS clear in upper and crackles in lateral/bases. Incontinent with urinal, up to commode this shift. IV patent and infusing ABX with NS TKO. Care continues
[2016-04-22 06:35] LABS: Mean Corpuscular Hemoglobin 29.2 pg (27.0-35.0); Mean Corpuscular Volume 85.9 fL (81-100); Platelet Count 302 bil/L (150-400)
[2016-04-22] MEDS ORDERED: ASPI-973 PO (06:40)
[2016-04-22 07:54] LABS: BASOPHILS % (AUTO) 1 % (0-3); EOSINOPHILS % (AUTO) 1 % (0-5); MONOCYTES % (AUTO) 15 % (4-12); NEUTROPHILS % (AUTO) 72 % (40-74)
--- NOTE | 2016-04-22 09:14 | NUR ---
FLOR: Initial was done on 04/22/16
[2016-04-22] MEDS ORDERED: Vancomycin Inj 1,000 MG in IV Premix 1 EACH IV SCH (10:00)
[2016-04-22] MEDS ORDERED: Polyethylene Glycol (PEG) 17 Gm Powder PO PRN (12:40)
--- NOTE | 2016-04-22 13:14 | PCM.PNMED ---
Subjective Date of Service Apr 22, 2016 Subjective Patient is sitting up eating without any complaints. Still remains somewhat confused but physically per is doing better. Exam Vital Signs Vital Sign - Last Date Time Temp Pulse Resp B/P Pulse Ox O2 Delivery O2 Flow Rate FiO2 04/22/16 09:01 36.4 70 20 153/102 97 Room Air 04/21/16 07:59 2.00 Intake and Output 04/21/16 04/21/16 04/22/16 Cumulative From/Thru 15:00 23:00 07:00 04/20/16 23:34 - 04/22/16 06:20 Intake Total 562 ml 769 ml 745 ml 3076 ml Output Total 50 ml 300 ml 350 ml Balance 562 ml 719 ml 445 ml 2726 ml Intake Oral 200 ml 200 ml 400 ml IV Total 562 ml 569 ml 545 ml 2676 ml Output Urine Total 50 ml 300 ml 350 ml # Voids 5 6 # Bowel Movements 0 0 Exam Constitutional: Elderly man in no acute distress Head: Normocephalic atraumatic Chest: Clear to auscultation Cor: Regular rate and rhythm S1-S2 Abdomen: Soft nontender bowel sounds present Extremities: No pedal edema IVs and Medications Medications Reviewed: Medications were reviewed in detail Lab and Diagnostics Laboratory Tests 72 Hours Test 04/21/16 00:28 04/21/16 01:00 04/21/16 01:16 04/21/16 14:35 White Blood Count 14.9th/mm3 (3.8-10.1) Red Blood Count 4.64mil/mm3 (4.40-5.80) Hemoglobin 13.7g/dL (13.8-17.2) Hematocrit 40.3% (41.0-50.0) Mean Corpuscular Volume 86.9fL (81-100) Mean Corpuscular Hemoglobin 29.5pg (27.0-35.0) Mean Corpuscular Hemoglobin Concent 34.0% (32.0-37.0) Red Cell Distribution Width 12.1% (12.3-15.4) Platelet Count 284bil/L (150-400) Neutrophils (%) (Auto) 79.3% (40-74) Lymphocytes (%) (Auto) 5.0% (14-46) Monocytes (%) (Auto) 10.3% (4-12) Eosinophils (%) (Auto) 0.9% (0-5) Basophils (%) (Auto) 1.1% (0-3) Prothrombin Time 14.4sec (8.1-12.5) Prothromb Time International Ratio 1.34ratio Activated Partial Thromboplast Time 43.9sec (22.8-33.0) Sodium Level 142mEq/L (134-144) Potassium Level 3.9mEq/L (3.5-5.2) Chloride Level 105mEq/L (97-108) Carbon Dioxide Level 19mmol/L (18-29) Blood Urea Nitrogen 27mg/dL (8-27) Creatinine 1.26mg/dL (0.76-1.27) Estimat Glomerular Filtration Rate 60mL/min (>59) Glucose Level 106mg/dL (60-99) Lactic Acid Level 1.4mmol/L (0.4-2.0) Calcium Level 8.7mg/dL (8.5-10.1) Phosphorus Level 3.1mg/dL (2.5-4.9) Magnesium Level 2.1mg/dL (1.6-2.6) Total Bilirubin 0.8mg/dL (0.0-1.2) Aspartate Amino Transf (AST/SGOT) 26U/L (0-50) Alanine Aminotransferase (ALT/SGPT) 26U/L (0-44) Alkaline Phosphatase 54U/L (25-160) Troponin T 0.084ug/L (0.0-0.011) 0.058ug/L (0.0-0.011) Pro-B-Type Natriuretic Peptide 5999pg/mL (0-376) Total Protein 7.3g/dL (6.4-8.4) Albumin 3.1g/dL (3.4-5.0) Lipase 31U/L (13-60) Procalcitonin 0.23ng/mL (0.00-0.08) Urine Legionella pneumophilia Ag Negative (Negative) Urine Color Dark yellow (YELLOW) Urine Appearance Slightly cloudy Urine pH 5.5 (5.0-8.0) Urine Specific [place] 1.025 (1.003-1.035) Urine Protein 30mg/dL (NEG,TRACE) Urine Glucose (UA) Negativemg/dL (NEGATIVE) Urine Ketones 15mg/dL (NEGATIVE) Urine Occult Blood Large (NEGATIVE) Urine Nitrite Negative (NEGATIVE) Urine Bilirubin Negative (NEGATIVE) Urine Urobilinogen Normalmg/dL (NORMAL) Urine Leukocyte Esterase Negative (NEGATIVE) Urine RBC >50/hpf (0-2) Urine WBC 0-5/hpf (0-5) Urine Epithelial Cells Occasional/hpf (NONE-MOD) Urine Crystals Amorphous urates (NONE Urine Bacteria None/hpf (NONE-FEW) Urine Hyaline Casts Rare/lpf (NONE) Urine Granular Casts None seen (NONE SEEN) Urine Waxy Casts None seen (NONE SEEN) Urine Red Blood Cell Casts None seen (NONE SEEN) Urine White Blood Cell Casts None seen (NONE SEEN) Urine Mucus Present (None Seen) Urine Trichomonas None seen (NONE SEEN) Urine Yeast None (NONE SEEN) Urine Culture Reflexed Not indicated Test 04/21/16 19:05 04/21/16 21:56 04/22/16 06:05 Troponin T 0.048ug/L (0.0-0.011) 0.042ug/L (0.0-0.011) White Blood Count 12.2th/mm3 (3.8-10.1) Red Blood Count 4.55mil/mm3 (4.40-5.80) Hemoglobin 13.3g/dL (13.8-17.2) Hematocrit 39.1% (41.0-50.0) Mean Corpuscular Volume 85.9fL (81-100) Mean Corpuscular Hemoglobin 29.2pg (27.0-35.0) Mean Corpuscular Hemoglobin Concent 34.0% (32.0-37.0) Red Cell Distribution Width 12.1% (12.3-15.4) Platelet Count 302bil/L (150-400) Neutrophils (%) (Auto) 72% (40-74) Lymphocytes (%) (Auto) 9% (14-46) Monocytes (%) (Auto) 15% (4-12) Eosinophils (%) (Auto) 1% (0-5) Basophils (%) (Auto) 1% (0-3) Band Neutrophils % 2% (1-5) Hematology Comments Sodium Level 143mEq/L (134-144) Potassium Level 3.9mEq/L (3.5-5.2) Chloride Level 107mEq/L (97-108) Carbon Dioxide Level 20mmol/L (18-29) Blood Urea Nitrogen 16mg/dL (8-27) Creatinine 0.99mg/dL (0.76-1.27) Estimat Glomerular Filtration Rate 79mL/min (>59) Glucose Level 97mg/dL (60-99) Calcium Level 8.2mg/dL (8.5-10.1) Total Bilirubin 0.8mg/dL (0.0-1.2) Aspartate Amino Transf (AST/SGOT) 31U/L (0-50) Alanine Aminotransferase (ALT/SGPT) 27U/L (0-44) Alkaline Phosphatase 56U/L (25-160) Total Protein 6.2g/dL (6.4-8.4) Albumin 3.2g/dL (3.4-5.0) Result Diagram: 04/22/1660404/22/16 06 X-Rays, CTs and MRIs Chest Xray Interpretation: Impression: Left lower lobe pneumonia. 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 after he was found to be hypotensive following a syncopal episode this evening. Sepsis (P105, WBC 14.9) with pneumonia as source of infection, present on admission. Active. - UA negative - Procalcitonin 0.23 - BCx, Strep pneumo is neg, legionella is pending, viral PCR is negative, MRSA swab is negative - [employer] acquired pneumonia, present on admission. Active. - patient with recent hospitalization at [facility] - Ceftriaxone, clindamycin and levofloxacin started in ED - will continue treatment with Cefepime and flagyl (for possible aspiration), Vancomycin DCed based on MRSA swab results Acute hypoxic respiratory failure, present on admission. Active. - most likely due to pneumonia, - oxygen sat to be kept above 92% Syncope with hypotension, present on admission. Active - CT head and abdomen pending - patient's med list with both Lisinopril and Losartan. Day team to clarify. Will hold both due to hypotension. - HCTZ held Elevated troponin, present on admission. Active - patient does not appear to be having chest pains, will trend troponin - echo results are pending Elevated BNP, present on admission. Active. - Echocardiogram in 2013 showed EF of 60-65% with no gross wall abnormalities - Echocardiogram results pending - strict I/O - standing daily weights if possible Paroxysmal atrial fibrillation, not anticoagulated, present on admission. - CHADs-vasc score 5, consider starting anticoagulation with warfarin or NOAC, patient currently on ASA 81mg - patient was found to be in a-fib at last ED visit on 04/12/16, received Cardizem bolus and drip after patient returned to [facility] - telemetry - give Cardizem ggt if heart rate over 110 - continue home metoprolol (hold for systolic blood pressure below 120) - Home meds restarted and is on pradaxa Encephalopathy secondary to recent multiple CVAs - swallow study pending - request [facility] records in am Coronary artery disease - continue atorvastatin, metoprolol, ACEi/ARB held for hypotension PRNs - Acetaminophen as needed for mild pain/fever/headache - Bowel regimen as needed - Antiemetic as needed Patient admitted under inpatient status with expected length of stay greater than 2 midnights due to severity of presenting symptoms, risk of adverse event, and complexity of treatment plan. GI Prophylaxis: not indicated VTE Prophylaxis: Heparin subq Resuscitation Status: DNR/DNI - patient's would states this is what patient expressed when last asked, she would like this to be confirmed with patient once patient is coherent GI Prophylaxis: Not indicated VTE Prophylaxis: Sub-Q Heparin (Unfractionated) Resuscitation Status: DNR/DNI:Do Not Resuscitate/Intubate (per , this was what patient expressed at last visit, would like to confirm with patient once patient is coherent) Time spent 30 minutes Dayanna Rahman MD Apr 22, 2016 13:14
--- NOTE | 2016-04-22 14:45 | NUR ---
Evaluation completed. Please go to "Notes" then click on "Assessments and Notes" (bottom left corner of screen). Then select appropriate discipline tab on top of screen.
[2016-04-22] MEDS: Dabigatran 150 mg Capsule PO SCH ×2 (15:49→20:15)
[2016-04-22] MEDS: Isosorbide Mononitrate 30 mg ER24 Tablet PO SCH (15:50)
[2016-04-22] MEDS ORDERED: Vancomycin Serum Trough XX ONE (16:00)
--- NOTE | 2016-04-22 17:42 | NUR ---
MENTATION/ACTIVITY Patient is alert and oriented X 1. Confused and needs frequent redirection. Equal hand grasps. BLE is weak but is better as compared to yesterday. Denies numbness/tingling. Impulsive. Attempted to get OOB on his own. Patient has been awake since early this morning and had multiple activities today. 1:1 sitter is at the bedside. Tylenol PO administered for generalized discomfort. Tolerating liquids and his diet well. Denies nausea. No emesis noted. Denies SOB. Patient was able to ambulate in the room and in the hallway with 2 PA and a FWW. Tolerated activity fairly. Continues to be on tele. Per telecommunication systems designer patient is on Afib; HR-110's. is aware of his mentation.
[2016-04-22] MEDS: Vancomycin Inj 1,000 MG in IV Premix 1 EACH IV SCH (20:06)
[2016-04-23] VITALS (9 sets, daily range): BP systolic 133–154; BP diastolic 73–89; PULSE 63–96; RESP 16–18; O2SAT 94–95
[2016-04-23] MEDS: Sodium Chloride LOK Flush 10 mL Syringe IVFLUSH SCH ×3 (00:30→16:05)
[2016-04-23] MEDS: metroNIDAZOLE Inj 500 MG in IV Premix 1 EACH IV SCH ×4 (01:09→22:23)
[2016-04-23] MEDS: Cefepime Inj 2,000 MG in Dextrose 5% Minibag Plus 50 ML IV SCH ×2 (02:19→16:11)
[2016-04-23 06:47] LABS: BASOPHILS % (AUTO) 1.4 % (0-3); EOSINOPHILS % (AUTO) 1.2 % (0-5); MONOCYTES % (AUTO) 13.7 % (4-12); Mean Corpuscular Hemoglobin 29.5 pg (27.0-35.0); Mean Corpuscular Volume 86.8 fL (81-100); NEUTROPHILS % (AUTO) 70.3 % (40-74); Platelet Count 297 bil/L (150-400)
--- NOTE | 2016-04-23 06:54 | NUR ---
Mentation Pt remains confuse and disoriented but pleasant and cooperative with care. He made several attempts to get OOB without assistance. Pt is weak with unsteady gait. Sitter at the bedside. No overt complications noted.
[2016-04-23] MEDS: Isosorbide Mononitrate 30 mg ER24 Tablet PO SCH (08:37)
[2016-04-23] MEDS: Dabigatran 150 mg Capsule PO SCH ×2 (08:37→20:51)
--- NOTE | 2016-04-23 09:33 | PCM.PNMED ---
Subjective Date of Service Apr 23, 2016 Subjective - Pt seen and examined this morning. Mildly confused. Denies any new complaints. Exam Vital Signs Vital Sign - Last Date Time Temp Pulse Resp B/P Pulse Ox O2 Delivery O2 Flow Rate FiO2 04/23/16 09:21 36.7 75 18 141/88 94 Room Air 04/21/16 07:59 2.00 Intake and Output 04/22/16 04/22/16 04/23/16 Cumulative From/Thru 15:00 23:00 07:00 04/20/16 23:34 - 04/23/16 06:21 Intake Total 2031 ml 718 ml 5825 ml Output Total 450 ml 550 ml 1350 ml Balance 1581 ml 168 ml 4475 ml Intake Oral 785 ml 718 ml 1903 ml IV Total 1246 ml 3922 ml Output Urine Total 450 ml 550 ml 1350 ml # Voids 1 7 # Bowel Movements 1 1 2 Exam Constitutional: Elderly man in no acute distress Head: Normocephalic atraumatic Chest: Clear to auscultation, Normal respiratory effort. Cor: Regular rate and rhythm S1-S2 Abdomen: Soft nontender bowel sounds present Extremities: No pedal edema IVs and Medications Medications Reviewed: Medications were reviewed in detail Lab and Diagnostics Result Diagram: 04/23/16 0555 04/23/16 0555 X-Rays, CTs and MRIs Chest Xray Interpretation: Impression: Left lower lobe pneumonia. 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 Sepsis (P105, WBC 14.9) with pneumonia as source of infection, present on admission. Active. - UA negative - Procalcitonin 0.23 - BCx, Strep pneumo is neg, legionella is pending, viral PCR is negative, MRSA swab is negative - [employer] [employer] acquired pneumonia, present on admission. Active. - patient with recent hospitalization at [facility] - received ceftriaxone, clindamycin and levofloxacin in ED - currently on cefepime and flagyl (for possible aspiration), - Vancomycin DCed based on MRSA swab results Acute hypoxic respiratory failure, present on admission. Active. - most likely due to pneumonia, - oxygen sat to be kept above 92% Syncope with hypotension, present on admission. Active - CT head and abdomen pending - patient's med list with both Lisinopril and Losartan. Day team to clarify. Will hold both due to hypotension. - HCTZ held Elevated troponin, present on admission. Active - patient does not appear to be having chest pains - Now trended down Elevated BNP, present on admission. Active. - Echocardiogram in 2013 showed EF of 60-65% with no gross wall abnormalities - Echocardiogram results pending - strict I/O - standing daily weights if possible Paroxysmal atrial fibrillation, not anticoagulated, present on admission. - CHADs-vasc score 5, consider starting anticoagulation with warfarin or NOAC, patient currently on ASA 81mg - patient was found to be in a-fib at last ED visit on 04/12/16, received Cardizem bolus and drip after patient returned to [facility] - give Cardizem ggt if heart rate over 110 - continue home metoprolol (hold for systolic blood pressure below 120) - Home meds restarted and is on pradaxa Encephalopathy secondary to recent multiple CVAs - swallow study pending - request [facility] records in am Coronary artery disease - continue atorvastatin, metoprolol, ACEi/ARB held for hypotension PRNs - Acetaminophen as needed for mild pain/fever/headache - Bowel regimen as needed - Antiemetic as needed GI Prophylaxis: not indicated VTE Prophylaxis: Heparin subq Resuscitation Status: DNR/DNI - patient's would states this is what patient expressed when last asked, she would like this to be confirmed with patient once patient is coherent Pain Evaluation: Adequate Pain Control GI Prophylaxis: Not indicated VTE Prophylaxis: Sub-Q Heparin (Unfractionated) Resuscitation Status: DNR/DNI:Do Not Resuscitate/Intubate (per , this was what patient expressed at last visit, would like to confirm with patient once patient is coherent) Romeo Pickard MD Apr 23, 2016 09:33
--- NOTE | 2016-04-23 13:27 | NUR ---
CLIFFORD signed by patient's at bedside.
--- NOTE | 2016-04-23 13:43 | NUR ---
Social Work: Initial Assessment Data & Assessment: EMR reviewed. See initial Assesssment. SW met with patient and patient's , Alicia Freeman- [phone], at bedside to complete Initial assessment, discuss discharge planning, and SW role explained. Patient is a 75 y/o male that admitted due to pneumonia. Patient NOK is Alicia Freeman- [phone]. Patient does not have a DPOA and declined information. Patient's PCP is Henry Jose DO. Patient's insurance is [employer]. Patient does not hve VA benefits or LTC benefits. patient's re-admit score is high at 7. Patient was at [facility] for a few days prior to admitting, but live in a 2 story home with two steps to enter and 14 steps on the inside. Patient was independent with ADL's, drove and has no DME at home. Patient does not have any HH or SNF history other than recent SNF stay. Patient will likely discharge to [facility]. SW will continue to follow. Plan: Patient is likely to discharge to [facility] when medically stable. SW will continue to follow. Addendum: 04/23/16 at 1353 by TIM MCNALLY Amended: Links added. Addendum: 04/23/16 at 1430 by TIM MCNALLY Patient's requested information for a stroke support group and SW provided patient's with the information below; This caring support group for stroke survivors, their loved ones and caretakers provides up-to-date education and information. Provided by [facility] neurologists and rehabilitation therapists. Meets the last Monday of each month from noon 1 p.m. [facility] (use [facility] entrance.) No charge. For more information call [phone] or email [email or web address].
--- NOTE | 2016-04-23 18:24 | NUR ---
Activity Pt alert to self and place only. Very forgetful, but follows commands and is easily reoriented. 1:[address] Pt up to BSC and able to sit in chair for meals. No c/o pain. Per tele pt still in a.fib 70-100's. Orders for sputum sample, but pt unable to provide one during shift.
[2016-04-24] VITALS (10 sets, daily range): BP systolic 111–211; BP diastolic 71–93; PULSE 58–108; RESP 16–18; O2SAT 94–95
[2016-04-24] MEDS: Sodium Chloride LOK Flush 10 mL Syringe IVFLUSH SCH ×3 (00:30→16:30)
[2016-04-24] MEDS: metroNIDAZOLE Inj 500 MG in IV Premix 1 EACH IV SCH ×4 (04:21→23:24)
[2016-04-24] MEDS: Cefepime Inj 2,000 MG in Dextrose 5% Minibag Plus 50 ML IV SCH ×2 (05:10→15:18)
[2016-04-24 06:16] LABS: BASOPHILS % (AUTO) 0.9 % (0-3); EOSINOPHILS % (AUTO) 1.4 % (0-5); MONOCYTES % (AUTO) 14.1 % (4-12); Mean Corpuscular Hemoglobin 29.3 pg (27.0-35.0); Mean Corpuscular Volume 85.7 fL (81-100); NEUTROPHILS % (AUTO) 72.5 % (40-74); Platelet Count 322 bil/L (150-400)
--- NOTE | 2016-04-24 08:09 | NUR ---
Confusion Patient alert to self and place. Patient inappropriate at times. Generally pleasant most of the time and very talkative. Patient made attempts to comply with all care this shift and made attempts to assist when necessary.
[2016-04-24] MEDS: Dabigatran 150 mg Capsule PO SCH ×2 (09:00→21:37)
[2016-04-24] MEDS: Isosorbide Mononitrate 30 mg ER24 Tablet PO SCH (09:00)
--- NOTE | 2016-04-24 10:01 | PCM.DIMED ---
Romeo Pickard MD 04/24/16 1001: Discharge Instructions Date of Service Apr 24, 2016 Dates of Hospitalization Apr 21, 2016 at 03:42 Discharge Diagnosis Discharge Diagnosis - Syncope - Pneumonia Diet Heart Healthy Patient Instructions Follow-up with PCP in: 2 weeks Marcial Lainez MD 04/25/16 1212: Discharge Instructions Date of Service Apr 25, 2016 Romeo Pickard MD Apr 24, 2016 10:01 Marcial Lainez MD Apr 25, 2016 12:12
[2016-04-24] MEDS ORDERED: METR500T PO (10:05)
[2016-04-24] MEDS ORDERED: CEFU500T61 PO (10:05)
--- NOTE | 2016-04-24 10:06 | PCM.DC.MED ---
Discharge Summary Date of Service Apr 24, 2016 Dates of Hospitalization Date of Hospital Admission Apr 21, 2016 at 03:42 Date of Discharge: Apr 25, 2016 Providers: Admitting Physician: Contreras Pena MD Primary Care Physician: Henry Jose DO Attending Physician: Contreras Pena MD Diagnosis at Time of Discharge Diagnosis at Time of Discharge - Syncope - Pneumonia Consultations None Procedures XRay, CTs & MRIs Chest Xray Interpretation: Impression: Left lower lobe pneumonia. View: Portable Interpretation / Wet Read by: Wet read ED physician ECG 12 Lead ECG Interpretation: Atrial fibrillation, Rate 88 Ventricular premature complex atrial fibrillation is new compared to prior EKG on 04/12/2016 Time: 23:58 Interpreted by: ED physician Brief History Medically noncompliant patient recently discharged from 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 Sepsis (P105, WBC 14.9) with pneumonia as source of infection, present on admission. Active. - UA negative - Procalcitonin 0.23 - BCx, Strep pneumo is neg, legionella is pending, viral PCR is negative, MRSA swab is negative - [facility] [employer] acquired pneumonia, present on admission. Active. - patient with recent hospitalization at [facility] - received ceftriaxone, clindamycin and levofloxacin in ED - currently on cefepime and flagyl (for possible aspiration), - Vancomycin DCed based on MRSA swab results Acute hypoxic respiratory failure, present on admission. Active. - most likely due to pneumonia, - oxygen sat to be kept above 92% Syncope with hypotension, present on admission. Active - CT head and abdomen pending - patient's med list with both Lisinopril and Losartan. Day team to clarify. Will hold both due to hypotension. - HCTZ held Elevated troponin, present on admission. Active - patient does not appear to be having chest pains - Now trended down Elevated BNP, present on admission. Active. - Echocardiogram in 2013 showed EF of 60-65% with no gross wall abnormalities - Echocardiogram results pending - strict I/O - standing daily weights if possible Paroxysmal atrial fibrillation, not anticoagulated, present on admission. - CHADs-vasc score 5, consider starting anticoagulation with warfarin or NOAC, patient currently on ASA 81mg - patient was found to be in a-fib at last ED visit on 04/12/16, received Cardizem bolus and drip after patient returned to NSR - give Cardizem ggt if heart rate over 110 - continue home metoprolol (hold for systolic blood pressure below 120) - Home meds restarted and is on pradaxa Encephalopathy secondary to recent multiple CVAs - swallow study pending - request [place] records in am Coronary artery disease - continue atorvastatin, metoprolol, ACEi/ARB held for hypotension PRNs - Acetaminophen as needed for mild pain/fever/headache - Bowel regimen as needed - Antiemetic as needed GI Prophylaxis: not indicated VTE Prophylaxis: Heparin subq Resuscitation Status: DNR/DNI - patient's would states this is what patient expressed when last asked, she would like this to be confirmed with patient once patient is coherent Exam Vital Signs (Last) Date Time Temp Pulse Resp B/P Pulse Ox O2 Delivery O2 Flow Rate FiO2 04/24/16 09:02 69 04/24/16 08:47 36.7 16 151/80 95 Room Air 04/21/16 07:59 2.00 Exam Constitutional: Elderly man in no acute distress Head: Normocephalic atraumatic Chest: Clear to auscultation, Normal respiratory effort. Cor: Regular rate and rhythm S1-S2 Abdomen: Soft nontender bowel sounds present Extremities: No pedal edema Test 04/21/16 00:28 04/21/16 01:00 04/21/16 01:16 04/21/16 21:56 Prothrombin Time 14.4sec (8.1-12.5) Prothromb Time International Ratio 1.34ratio Activated Partial Thromboplast Time 43.9sec (22.8-33.0) Lactic Acid Level 1.4mmol/L (0.4-2.0) Phosphorus Level 3.1mg/dL (2.5-4.9) Magnesium Level 2.1mg/dL (1.6-2.6) Pro-B-Type Natriuretic Peptide 5999pg/mL (0-376) Lipase 31U/L (13-60) Procalcitonin 0.23ng/mL (0.00-0.08) Urine Legionella pneumophilia Ag Negative (Negative) Urine Color Dark yellow (YELLOW) Urine Appearance Slightly cloudy Urine pH 5.5 (5.0-8.0) Urine Specific [place] 1.025 (1.003-1.035) Urine Protein 30mg/dL (NEG,TRACE) Urine Glucose (UA) Negativemg/dL (NEGATIVE) Urine Ketones 15mg/dL (NEGATIVE) Urine Occult Blood Large (NEGATIVE) Urine Nitrite Negative (NEGATIVE) Urine Bilirubin Negative (NEGATIVE) Urine Urobilinogen Normalmg/dL (NORMAL) Urine Leukocyte Esterase Negative (NEGATIVE) Urine RBC >50/hpf (0-2) Urine WBC 0-5/hpf (0-5) Urine Epithelial Cells Occasional/hpf (NONE-MOD) Urine Crystals Amorphous urates (NONE Urine Bacteria None/hpf (NONE-FEW) Urine Hyaline Casts Rare/lpf (NONE) Urine Granular Casts None seen (NONE SEEN) Urine Waxy Casts None seen (NONE SEEN) Urine Red Blood Cell Casts None seen (NONE SEEN) Urine White Blood Cell Casts None seen (NONE SEEN) Urine Mucus Present (None Seen) Urine Trichomonas None seen (NONE SEEN) Urine Yeast None (NONE SEEN) Urine Culture Reflexed Not indicated Troponin T 0.042ug/L (0.0-0.011) Test 04/22/16 06:05 04/24/16 05:50 Band Neutrophils % 2% (1-5) Hematology Comments White Blood Count 13.4th/mm3 (3.8-10.1) Red Blood Count 4.41mil/mm3 (4.40-5.80) Hemoglobin 12.9g/dL (13.8-17.2) Hematocrit 37.8% (41.0-50.0) Mean Corpuscular Volume 85.7fL (81-100) Mean Corpuscular Hemoglobin 29.3pg (27.0-35.0) Mean Corpuscular Hemoglobin Concent 34.1% (32.0-37.0) Red Cell Distribution Width 12.2% (12.3-15.4) Platelet Count 322bil/L (150-400) Neutrophils (%) (Auto) 72.5% (40-74) Lymphocytes (%) (Auto) 8.0% (14-46) Monocytes (%) (Auto) 14.1% (4-12) Eosinophils (%) (Auto) 1.4% (0-5) Basophils (%) (Auto) 0.9% (0-3) Sodium Level 143mEq/L (134-144) Potassium Level 3.6mEq/L (3.5-5.2) Chloride Level 104mEq/L (97-108) Carbon Dioxide Level 22mmol/L (18-29) Blood Urea Nitrogen 12mg/dL (8-27) Creatinine 1.03mg/dL (0.76-1.27) Estimat Glomerular Filtration Rate 75mL/min (>59) Glucose Level 79mg/dL (60-99) Calcium Level 8.2mg/dL (8.5-10.1) Total Bilirubin 0.8mg/dL (0.0-1.2) Aspartate Amino Transf (AST/SGOT) 30U/L (0-50) Alanine Aminotransferase (ALT/SGPT) 26U/L (0-44) Alkaline Phosphatase 56U/L (25-160) Total Protein 6.5g/dL (6.4-8.4) Albumin 3.5g/dL (3.4-5.0) Microbiology Results Nasopharynx DNA negative, MRSA screen negative, strep antigen negative, blood cultures 2 negative Discharge Medications Discharge Medications Amlodipine (Amlodipine) 5 Mg Tablet 5 MG PO BID (Reported) Aspirin (Aspirin) 81 Mg Tablet 81 MG PO DAILY (Reported) Atorvastatin (Lipitor) 20 Mg Tablet 40 MG PO HS Prescribed by: VINCE WHITNEY DO, Cefuroxime Axetil (Cefuroxime) 500 Mg Tablet 500 MG PO BID Prescribed by: CHAN PLATA MD Dabigatran Etexilate Mesylate (Pradaxa) 150 Mg Capsule 150 MG PO BID (Reported) Hydrochlorothiazide (Hydrochlorothiazide) 25 Mg Tablet 25 MG PO DAILY Prescribed by: VINCE WHITNEY DO, RESIDENT Isosorbide MN ER (Isosorbide MN ER) 30 Mg Tab.er.24h 30 MG PO DAILY (Reported) Lisinopril (Lisinopril) 20 Mg Tablet 40 MG PO DAILY (Reported) Losartan Potassium (Losartan Potassium) 25 Mg Tablet 25 MG PO DAILY Prescribed by: VINCE WHITNEY DO, RESIDENT Metoprolol Tartrate (Metoprolol Tartrate) 100 Mg Tablet 100 MG PO BID (Reported ) Metronidazole (Flagyl) 500 Mg Tablet 500 MG PO Q8H Prescribed by: CHAN PLATA MD Quetiapine Fumarate (Quetiapine Fumarate) 25 Mg Tablet 25 MG PO HS (Reported) As needed Acetaminophen (Acetaminophen) 325 Mg Tablet 650 MG PO Q4H PRN PRN For Pain ( Reported) Polyethylene Glycol 3350 (Miralax) 17 Gm Powd.pack 17 GM PO DAILY PRN PRN For Constipation (Reported) Followup Plan Disposition: [facility] Follow-up plan Facility provider Discharge Diet: Heart Healthy Follow-up Provider: Henry Jose DO Follow-up with PCP in: Other (call advice and SNF again) Time spent Greater than 30 minutes Attending Statement Met this patient on date of discharge, transitioned over to oral antibiotics, he had been on a sitter for 24 hours and is going to [facility] SNF again. I believe most of his issues revolve around medication noncompliance so when he discharges again perhaps setting up home health for better educating his to be sure that this patient is getting medications to ensure his success on discharge to home. copies to: Henry Jose Manan A MD Apr 24, 2016 10:06 Marcial Lainez MD Apr 25, 2016 11:57
--- NOTE | 2016-04-24 10:22 | NUR ---
Social Work: Continued d/c planning Data: Pt is on day 3 of hospitalization. EMR reviewed. D/C orders are in. Pt has a sitter, which will be discontinued 10:30am on 04/24/16. Pt is medically ready for d/c. INFANTRY ASSAULTMAN called [facility], no answer, left a message informing them of anticipated d/c tomorrow. [facility] can accept pt when pt has been free of sitter for 24 hours on 04/25/16. INFANTRY ASSAULTMAN will continue to follow. Assessment: Pt who is independent at baseline. Plan: Pt will d/c to [facility], likely tomorrow if he remains sitter free through 10:30am on 04/25/16. INFANTRY ASSAULTMAN will continue to follow. VICKY Eller
--- NOTE | 2016-04-24 10:35 | NUR ---
Tete Epstein dc'd @ 0989
--- NOTE | 2016-04-24 11:09 | PCM.PNMED ---
Subjective Date of Service Apr 24, 2016 Exam Vital Signs Vital Sign - Last Date Time Temp Pulse Resp B/P Pulse Ox O2 Delivery O2 Flow Rate FiO2 04/24/16 10:06 85 04/24/16 08:47 36.7 16 151/80 95 Room Air 04/21/16 07:59 2.00 Intake and Output 04/23/16 04/23/16 04/24/16 Cumulative From/Thru 15:00 23:00 07:00 04/20/16 23:34 - 04/24/16 06:36 Intake Total 249 ml 874 ml 500 ml 7448 ml Output Total 800 ml 700 ml 2850 ml Balance 249 ml 74 ml -200 ml 4598 ml Intake Oral 720 ml 500 ml 3123 ml IV Total 249 ml 154 ml 4325 ml Output Urine Total 800 ml 700 ml 2850 ml # Voids 2 9 # Bowel Movements 1 3 Exam Constitutional: Elderly man in no acute distress Head: Normocephalic atraumatic Chest: Clear to auscultation, Normal respiratory effort. Cor: Regular rate and rhythm S1-S2 Abdomen: Soft nontender bowel sounds present Extremities: No pedal edema IVs and Medications Medications Reviewed: Medications were reviewed in detail Lab and Diagnostics Result Diagram: 04/24/16 0550 04/24/16 0550 X-Rays, CTs and MRIs Chest Xray Interpretation: Impression: Left lower lobe pneumonia. 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 Sepsis (P105, WBC 14.9) with pneumonia as source of infection, present on admission. Active. - UA negative - Procalcitonin 0.23 - BCx, Strep pneumo is neg, legionella is pending, viral PCR is negative, MRSA swab is negative - [facility] acquired pneumonia, present on admission. Active. - patient with recent hospitalization at [facility] - received ceftriaxone, clindamycin and levofloxacin in ED - currently on cefepime and flagyl (for possible aspiration),. Will discharge on cefuroxime and flagyl for total of 7 days - Vancomycin DCed based on MRSA swab results Acute hypoxic respiratory failure, present on admission. Active. - most likely due to pneumonia, - oxygen sat to be kept above 92% Syncope with hypotension, present on admission. Active - CT head and abdomen pending - patient's med list with both Lisinopril and Losartan. Day team to clarify. Will hold both due to hypotension. - HCTZ held Elevated troponin, present on admission. Active - patient does not appear to be having chest pains - Now trended down Elevated BNP, present on admission. Active. - Echocardiogram in 2013 showed EF of 60-65% with no gross wall abnormalities - Echocardiogram results pending - strict I/O - standing daily weights if possible Paroxysmal atrial fibrillation, not anticoagulated, present on admission. - CHADs-vasc score 5, consider starting anticoagulation with warfarin or NOAC, patient currently on ASA 81mg - patient was found to be in a-fib at last ED visit on 04/12/16, received Cardizem bolus and drip after patient returned to NSR - give Cardizem ggt if heart rate over 110 - continue home metoprolol (hold for systolic blood pressure below 120) - Home meds restarted and is on pradaxa Encephalopathy secondary to recent multiple CVAs - swallow study pending - request [place] records in am Coronary artery disease - continue atorvastatin, metoprolol, ACEi/ARB held for hypotension PRNs - Acetaminophen as needed for mild pain/fever/headache - Bowel regimen as needed - Antiemetic as needed GI Prophylaxis: not indicated VTE Prophylaxis: Heparin subq Resuscitation Status: DNR/DNI - patient's would states this is what patient expressed when last asked, she would like this to be confirmed with patient once patient is coherent Pain Evaluation: Adequate Pain Control GI Prophylaxis: Not indicated VTE Prophylaxis: Sub-Q Heparin (Unfractionated) Resuscitation Status: DNR/DNI:Do Not Resuscitate/Intubate (per , this was what patient expressed at last visit, would like to confirm with patient once patient is coherent) Romeo Pickard MD Apr 24, 2016 11:09
--- NOTE | 2016-04-24 19:24 | NUR ---
Mentation Patient continues to have confusion this shift. Patient is sometimes appropriate, but often has speech that does not fit in with conversation. Patient denies any pain, nausea. Care is ongoing.
[2016-04-25] MEDS: Sodium Chloride LOK Flush 10 mL Syringe IVFLUSH SCH ×2 (00:30→08:30)
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
[2016-04-25] MEDS: Cefepime Inj 2,000 MG in Dextrose 5% Minibag Plus 50 ML IV SCH (02:00)
[2016-04-25] MEDS: metroNIDAZOLE Inj 500 MG in IV Premix 1 EACH IV SCH (04:30)
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
[2016-04-25 08:16] VITALS: BP 134/77; PULSE 69; RESP 14; O2SAT 95
[2016-04-25] MEDS: Dabigatran 150 mg Capsule PO SCH (08:21)
[2016-04-25] MEDS: Isosorbide Mononitrate 30 mg ER24 Tablet PO SCH (08:22)
[2016-04-25 08:48] VITALS: PULSE 102
--- NOTE | 2016-04-25 10:43 | NUR ---
Social Work Discharge: SW met with patient and family at bedside to discuss discharge plan. Plan remains as SNF placement return to [facility]. Patient has been free of sitter for 24hrs at this time. YANETH spoke to [facility] rep [place] who states that patient accepted and bed available today. ESEQUIEL garciat coordinated packet and faxed discharge paperwork. Body form placed on chart. Transport arranged for pickle solution maker at 12:30 noon today. No other needs identified at this time. PLAN: Transfer back to [facility] today Beverly PERRY
--- NOTE | 2016-04-25 10:44 | NUR ---
Faxed orders to [facility] and DOCUMENTATION SPECIALIST arranged transport for 1230. Addendum: 04/25/16 at 1106 by NORBERT JEAN-BAPTISTE CM Called and left message for Nusrat Abdalla CM at [facility] and asked her to review patient for transfer back to [facility]
[2016-04-25] MEDS ORDERED: CEFU250T82 PO (12:13)
[2016-04-25] MEDS ORDERED: Lactobacillus Acidophilus PO (12:13)
--- NOTE | 2016-04-25 12:33 | NUR ---
Discharge Pt left via [facility]ulance to [facility] at 1230 in stable condition with all belongings, at bedside, Report called over to Mary Lou ELIZABETH Addendum: 04/25/16 at 1254 by LISA CA RN No IV access. Prescriptions found in chart after discharge, faxed over to [facility], call and confirmed that they had them. Addendum: 04/25/16 at 1910 by LISA CA RN No difficulty voiding prior to discharge
== END 2016-04-25 12:30 | DRG 871 ==
LOC: SED 23:25 → OSC 04-21 03:42
PROVIDERS: ADMIT Hospitalist; ATTEND Hospitalist
PROC: 4A033R1 Measurement of Arterial Saturation, Peripheral, Percutaneous Approach (ICD-10-PCS; principal; 2016-04-21)
DX: A41.9 Sepsis, unspecified organism (principal); J18.9 Pneumonia, unspecified organism; J96.01 Acute respiratory failure with hypoxia; I69.951 Hemiplegia and hemiparesis following unspecified cerebrovascular disease affecting right dominant side; I69.920 Aphasia following unspecified cerebrovascular disease; I48.0 Paroxysmal atrial fibrillation; I10 Essential (primary) hypertension; I25.10 Atherosclerotic heart disease of native coronary artery without angina pectoris; E78.5 Hyperlipidemia, unspecified; Z66 Do not resuscitate; I49.3 Ventricular premature depolarization; R55 Syncope and collapse; I25.2 Old myocardial infarction; Z91.19 Patient's noncompliance with other medical treatment and regimen; Z79.82 Long term (current) use of aspirin

== ENCOUNTER 2016-04-25 18:09 | Inpatient (IN) | payer MEDICARE ==
[~2016-04-25] VITALS: Ht 175.3 cm; Wt 86.0 kg
[~2016-04-25 18:09] MED LIST changes: +ACET325T51 PO; +AMLO5TAB2 PO; -ASPI-628 PO; +ASPI-973 PO; +CEFU250T82 PO; +CEFU500T61 PO; +DABI150C PO; +ISOS30TA4 PO; +Lactobacillus Acidophilus PO; +METO100T3 PO; +METR500T PO; -Metoprolol Tartrate PO; +POLY17PO6 PO; +QUET25TA73 PO
[2016-04-25 18:20] VITALS: BP 140/88; PULSE 78; RESP 20; O2SAT 99
--- NOTE | 2016-04-25 19:36 | ED.REPORT ---
HPI- Male Date of Service Apr 25, 2016 ED Provider: Ignacio RicoO. A 75 year old demented male with a medical history including stroke, encephalopathy, CAD, hypertension, and atrial fibrillation presents to the ED via EMS from [facility] with penile bleeding onset unknown. The patient also reports pain in his penis. Per EMS his BP was 145/98 with otherwise normal vital signs. He had a Luther catheter removed two days ago. The patient was discharged from the the hospital yesterday after a three day stay for pneumonia and syncope. Both the patient and his are poor historians. Nursing Notes Stated Complaint: HEMATURIA Chief Complaint: Male Abdominal Pain Nursing Notes Reviewed: Yes Allergies: Coded Allergies: Penicillins (Verified Allergy, Unknown, 04/20/16) Scheduled Amlodipine (Amlodipine) 5 Mg Tablet 5 MG PO BID Aspirin (Aspirin) 81 Mg Tablet 81 MG PO DAILY Atorvastatin (Lipitor) 20 Mg Tablet 40 MG PO HS Cefuroxime Axetil (Cefuroxime) 500 Mg Tablet 500 MG PO BID Dabigatran Etexilate Mesylate (Pradaxa) 150 Mg Capsule 150 MG PO BID Hydrochlorothiazide (Hydrochlorothiazide) 25 Mg Tablet 25 MG PO DAILY Isosorbide MN ER (Isosorbide MN ER) 30 Mg Tab.er.24h 30 MG PO DAILY Lisinopril (Lisinopril) 20 Mg Tablet 40 MG PO DAILY Losartan Potassium (Losartan Potassium) 25 Mg Tablet 25 MG PO DAILY Metoprolol Tartrate (Metoprolol Tartrate) 100 Mg Tablet 100 MG PO BID Metronidazole (Flagyl) 500 Mg Tablet 500 MG PO Q8H Quetiapine Fumarate (Quetiapine Fumarate) 25 Mg Tablet 25 MG PO HS Scheduled PRN Acetaminophen (Acetaminophen) 325 Mg Tablet 650 MG PO Q4H PRN PRN For Pain Polyethylene Glycol 3350 (Miralax) 17 Gm Powd.pack 17 GM PO DAILY PRN PRN For Constipation General Time Seen by MD: 19:36 Chief Complaint Penile discharge... 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 Smoking History Unknown if Ever Smoker Social History Lives at [facility] Other Social History: Good social support, , Lives in [facility], Local resident Ambulatory Status Independent Review of Systems Review of Systems Note: + Penis pain Constitutional: Denies: Fever GI: Denies: Vomiting Male: Reports Penile discharge (Blood) Complete sys rev & neg: except as marked. Respiratory: Denies: Non-productive cough, Shortness of breath Physical Exam Initial Vital Signs Vital Signs (First) Date Time Temp Pulse Resp B/P Pulse Ox O2 Delivery O2 Flow Rate FiO2 04/25/16 18:20 36.8 78 20 140/88 99 Room Air 04/25/16 23:32 2 Initial VS: Reviewed Head / Eyes: Atraumatic, Normocephalic ENT: Conjunctiva normal, No scleral icterus Neck: Supple, Full range of motion Respiratory: Breath sounds normal, Clear to auscultation, No respiratory distress Cardiovascular: Regular rate & rhythm, Heart sounds normal Skin: Warm, Dry Psychiatric: Mood/affect normal, Behavior normal, Normal thought content Male Genitourinary: Atraumatic Bright red blood intermittently draining from tip of penis General/Constitutional: Awake, Alert Demented Abdomen: Soft Trauma - General: Positive: Ecchymosis (Over anterior abdominal wall) Lower Extremity / Pelvis / MS: Full range of motion, Neurologic intact, Vascular intact Trauma / Burn / Environmental: Positive: Ecchymosis (Over medial thighs) Interpretation & Diagnostics CT KUB NO CONTRAST: IMPRESSION: A source of hematuria is not found. A Luther catheter fully empties the bladder lumen. No urinary tract stone is found. Stable appearance of renal cortical cysts with reference to the prior study from 04/21/16. Dictated by: Vasile Garcia M.D. on 04/25/2016 at 21:30 Lab Results Interpretation Result Diagram: 04/26/16 0450 04/26/16 0450 Test 04/25/16 20:10 04/25/16 20:46 Band Neutrophils % 1% (1-5) Metamyelocytes % 1% (0-0) Prothrombin Time 16.8sec (8.1-12.5) Prothromb Time International Ratio 1.56ratio Total Bilirubin 0.5mg/dL (0.0-1.2) Aspartate Amino Transf (AST/SGOT) 33U/L (0-50) Alanine Aminotransferase (ALT/SGPT) 30U/L (0-44) Alkaline Phosphatase 50U/L (25-160) Total Protein 7.1g/dL (6.4-8.4) Albumin 3.3g/dL (3.4-5.0) Hold Proctor Top Tube Received (Received) Urine Color Bloody (YELLOW) Urine Appearance Turbid (CLEAR,HAZY) Urine pH 6.0 (5.0-8.0) Urine Specific [place] 1.025 (1.003-1.035) Urine Protein 100mg/dL (NEG,TRACE) Urine Glucose (UA) Negativemg/dL (NEGATIVE) Urine Ketones 15mg/dL (NEGATIVE) Urine Occult Blood Large (NEGATIVE) Urine Nitrite Negative (NEGATIVE) Urine Bilirubin Negative (NEGATIVE) Urine Urobilinogen Normalmg/dL (NORMAL) Urine Leukocyte Esterase Negative (NEGATIVE) Urine RBC >50/hpf (0-2) Urine WBC 6-10/hpf (0-5) Urine Epithelial Cells Occasional/hpf (NONE-MOD) Urine Crystals None seen (NONE SEEN) Urine Bacteria None/hpf (NONE-FEW) Urine Hyaline Casts None/lpf (NONE) Urine Granular Casts None seen (NONE SEEN) Urine Waxy Casts None seen (NONE SEEN) Urine Red Blood Cell Casts None seen (NONE SEEN) Urine White Blood Cell Casts None seen (NONE SEEN) Urine Mucus None seen (None Seen) Urine Trichomonas None seen (NONE SEEN) Urine Yeast None (NONE SEEN) Urinalysis Comment None Urine Culture Reflexed Indicated Re-Eval/Medical Decision Med Decision/Clinical Course I suspect that this gentleman pulled his own catheter out and that is why he has gross hematuria. We replaced the catheter and wrapped his penis and we had good Amount of the bleeding. He looked well and did not seem like we could send him back to [facility]. He then became combative got up out of bed ripped his own Luther out with the balloon up. We put him back in bed clean up all the blood replace the catheter and it did require both soft restraints and chemical restraints to keep him from [place] at the catheter. I think the catheter is absolutely indicated due to the urethral trauma that most of occurred. The other thing is unsure as to clot off his penis and not be able to urinate if we do not keep the catheter in. I will admit him to the hospitalist service I do not feel that he is a good candidate right now to go back to [facility]. Source of Hx: Old records Re-Evaluation/Progress #1: Time of Eval: 21:25 Patient Status: Condition improved Re-Evaluation/Progress Note: Discussed patient's case and probable discharge with his Re-Evaluation/Progress #2: Time of Eval: 22:37 Re-Evaluation/Progress Note: The patient pulled out his catheter and is now bleeding steadily. A face to face with the patient was performed. He has become combative and will be placed in restraints. Informed patient of plan for second catheter placement and admit to hospital. Re-Evaluation/Progress #3: Time of Eval: 23:00 Re-Evaluation/Progress Note: Discussed patient's case with his . Discussed CT results, diagnosis, and plan for admit. Patient's agrees with plan and all questions were addressed. Consultation #1: Referral / Consult Name: Keshia Cordoba MD Consulted With: Urology Call Returned at: 20:39 Cost Control Supervisor: Agrees with eval, Agrees with plan Consultation #2: Referral / Consult Name: Lelia Lyon DO Consulted With: Hospitalist Call Returned at: 23:55 Cost Control Supervisor: Agrees with eval, Agrees with plan, Accepts admit Counseled Regarding: Diagnosis, Need for admission Discharge & Departure Impression: Primary Impression: Altered mental status Altered mental status type: unspecified Qualified Code: R41.82 - Altered mental status, unspecified Additional Impressions: Problem with Luther catheter Encounter type: initial encounter Qualified Code: T83.9XXA - Unspecified complication of genitourinary prosthetic device, implant and graft, initial encounter Internal injury, urethra, closed Encounter type: initial encounter Qualified Code: S37.30XA - Unspecified injury of urethra, initial encounter Disposition: ADMITTED TO HOSPITAL Discharge Condition All VS Reviewed: Yes Condition: Stable Referrals: Henry Jose DO (PCP) Scribe Attestation Portions of this note were transcribed by Goldie David. I, Dr. Whitmore, personally performed the history, physical exam, and medical decision-making; I reviewed and confirmed the accuracy of the information in the transcribed note. Signed by: Bob Mills, 04/26/2016, 00:15 copies to: Henry Jose Todd P DO Apr 25, 2016 19:36 GOLDIE DAVID Apr 25, 2016 19:56 Urine Mucus None seen (None Seen) Urine Trichomonas None seen (NONE SEEN) Urine Yeast None (NONE SEEN) Urinalysis Comment None Urine Culture Reflexed Indicated Re-Eval/Medical Decision Source of Hx: Old records Re-Evaluation/Progress #1: Time of Eval: 21:25 Patient Status: Condition improved Re-Evaluation/Progress Note: Discussed patient's case and probable discharge with his Re-Evaluation/Progress #2: Time of Eval: 22:37 Re-Evaluation/Progress Note: The patient pulled out his catheter and is now bleeding steadily. A face to face with the patient was performed. He has become combative and will be placed in restraints. Informed patient of plan for second catheter placement and admit to hospital. Re-Evaluation/Progress #3: Time of Eval: 23:00 Re-Evaluation/Progress Note: Discussed patient's case with his . Discussed CT results, diagnosis, and plan for admit. Patient's agrees with plan and all questions were addressed. Consultation #1: Referral / Consult Name: Keshia Cordoba MD Consulted With: Urology Call Returned at: 20:39 Cost Control Supervisor: Agrees with eval, Agrees with plan Consultation #2: Referral / Consult Name: Lelia Lyon DO Consulted With: Hospitalist Call Returned at: 23:55 Cost Control Supervisor: Agrees with eval, Agrees with plan, Accepts admit Counseled Regarding: Diagnosis, Need for admission Discharge & Departure Impression: Primary Impression: Altered mental status Altered mental status type: unspecified Qualified Code: R41.82 - Altered mental status, unspecified Additional Impressions: Problem with Luther catheter Encounter type: initial encounter Qualified Code: T83.9XXA - Unspecified complication of genitourinary prosthetic device, implant and graft, initial encounter Internal injury, urethra, closed Encounter type: initial encounter Qualified Code: S37.30XA - Unspecified injury of urethra, initial encounter Disposition: ADMITTED TO HOSPITAL Discharge Condition All VS Reviewed: Yes Condition: Stable Referrals: Henry Jose DO (PCP) Bob Attestation Portions of this note were transcribed by Goldie David. I, Dr. Whitmore, personally performed the history, physical exam, and medical decision-making; I reviewed and confirmed the accuracy of the information in the transcribed note. Signed by: Bob Mills, 04/26/2016, 00:15 copies to: Henry Jose Todd P DO Apr 25, 2016 19:36 GOLDIE DAVID Apr 25, 2016 19:56
[2016-04-25 20:24] LABS: Mean Corpuscular Volume 86.3 fL (81-100); Platelet Count 405 bil/L (150-400)
[2016-04-25 20:43] LABS: INR 1.56 ratio
[2016-04-25 20:47] LABS: BASOPHILS % (AUTO) 2 % (0-3); EOSINOPHILS % (AUTO) 0 % (0-5); MONOCYTES % (AUTO) 8 % (4-12); NEUTROPHILS % (AUTO) 74 % (40-74)
[2016-04-25] MEDS ORDERED: cefTRIAXone Inj 2,000 MG in Dextrose 5% Minibag Plus 50 ML IV ONE (20:50)
[2016-04-25 21:05] LABS: APPEARANCE,URINE TURBID (CLEAR,HAZY); COLOR,URINE BLOODY (YELLOW); OCCULT BLOOD,URINE LARGE (NEGATIVE); UROBILINOGEN,URINE NORMAL (NORMAL)
[2016-04-25 21:06] VITALS: BP 137/83; PULSE 85; RESP 18; O2SAT 95
--- NOTE | 2016-04-25 21:35 | DRSVH ---
PROCEDURE: CT KUB ([id number]) INDICATIONS: hematuria suprapubic pain TECHNIQUE: Noncontrast 5 mm thick sections acquired from the diaphragms to the symphysis. 5 mm thick coronal an d sagittal reformats were then performed. For radiation dose reduction, the following was used: aut omated exposure control, adjustment of mA and/or kV according to patient size. COMPARISON: None. FINDINGS: Image quality: Excellent. Lung bases: Lung bases are clear. There are small bilateral pleural effusions, Heart size is normal . Urinary system: Both kidneys are normal in size. Bilateral renal cortical cysts previously present during contrast-enhanced CT scanning 04/26/16 are again seen and no definite change in the appearance o f those structures has occurred. No kidney stones. No hydronephrosis or perinephric fat stranding. Both ureters appear non-dilated throughout their expected courses. Bladder wall thickness is normal ; no calcified bladder stones. Other solid organs: Liver and spleen are normal in size. Gallbladder appears normal. Pancreas is n ormal in contours. No adrenal nodules. Peritoneum and bowel: Unenhanced bowel loops demonstrate normal wall thickness and caliber. No free fluid or air. Nodes and vessels: No retroperitoneal or mesenteric adenopathy by size criteria. Aorta and inferior vena cava are normal in caliber. Abdominal wall: No ventral hernias. Pelvis: No free pelvic fluid. No inguinal hernias or adenopathy. A Luther catheter fully empties th e bladder lumen Bones: No suspicious bony lesions. No vertebral body compression fractures. IMPRESSION: A source of hematuria is not found. A Luther catheter fully empties the bladder lumen. No urinary tract stone is found. Stable appearance of renal cortical cysts with reference to the tamela or study from 04/21/16. Dictated by: Vasile Garcia M.D. on 04/25/2016 at 21:30 Approved by: Vasile Garcia M.D. on 04/25/2016 at 21:33
[2016-04-25] MEDS ORDERED: Haloperidol 5 mg/mL Inj ONE (22:47)
[2016-04-25] MEDS ORDERED: Haloperidol 5 mg/mL Inj IM PRN (23:00)
[2016-04-25 23:32] VITALS: BP 145/77; PULSE 82; RESP 18; O2SAT 97
[2016-04-26] VITALS (11 sets, daily range): BP systolic 103–157; BP diastolic 57–98; PULSE 60–122; RESP 16–20; O2SAT 93–97
[2016-04-26] MEDS ORDERED: 0.9% Sodium Chloride 1,000 ML IV SCH ×2 (00:08)
[2016-04-26] MEDS ORDERED: Ondansetron 2 mg/mL 2 mL Inj IVPUSH PRN (00:10)
[2016-04-26] MEDS ORDERED: Alum-Mag Hydrox-Simeth 30 mL Suspension PO PRN ×2 (00:10)
[2016-04-26] MEDS ORDERED: Polyethylene Glycol (PEG) 17 Gm Powder PO PRN ×2 (00:10)
[2016-04-26] MEDS ORDERED: Labetalol 5 mg/mL 4 mL Inj IVPUSH PRN (00:10)
[2016-04-26 02:00] LABS: Phosphorus 2.6 mg/dL (2.5-4.9); TROPONIN T 0.01 ug/L (0.0-0.011)
--- NOTE | 2016-04-26 02:07 | PCM.HPMED ---
Subjective Date of Service Apr 26, 2016 Primary Provider: Admitting Physician: Primary Care Physician: Henry Jose DO Attending Physician: Admit Status: From the Emergency Department Chief Complaint: Resident of [facility] with Penile bleeding History of Present Illness: A 75 year old male with a medical history including stroke, encephalopathy due to multiple recent CVAs on 04/12/16, CAD with hx of prior NSTEMI, HTN, and A-fib (Aspirin 81mg and Pradaxa), presents to the ED via EMS from [facility] with penile bleeding associated pain onset approximately a week ago. He had a Luther catheter removed two days ago at [facility] with some penile bleeding reported at that time. The patient was discharged from the the hospital yesterday after a three day hospitalization for sepsis (with blood cx at that time that returned negative), acute hypoxic respiratory failure likely secondary to a diagnosis of HCAP and was discharge on cefepime/Flagyl, and syncope deemed likely secondary to hypotension. In the ED today patient had bleeding from the penile urethra. Patient had Luther catheter placed and balloon inflated resulting in clear urine flowing from Luther. Luther was secured and patient was stable and ready to discharge back to SNF. Patient then pulled inflated catheter out of his penis while staff was not present. When staff reentered the room patient was sitting on the floor in a pool of blood. Luther catheter was replaced and reinflated with resulting tamponade of penile hemorrhage. Patient again started to reach for Luther catheter in attempt to remove it on his own. Patient was placed in soft restraints and sedated with Haldol. At time of exam patient was sedated and unable to respond to clinical questioning. Vital signs in ED: Temperature 36.5, pulse 82, blood pressure 145/77, respiratory rate 18, pulse ox 97% on 2 L. Hemogram: White blood cells 17.7, hemoglobin 12.3, hematocrit 36.6, platelets 405, Chemistry panel: Calcium 8.2 otherwise normal PT/INR 16.8/1.56 UA significant for gross hematuria, 6-10 WBCs, CT KUB showed no source of hematuria found, stones, stable appearance of renal cortical cysts. Review of Systems: A comprehensive review of systems was conducted and was found negative with the exception of that mentioned in history of present illness. Allergies Coded Allergies: Penicillins (Verified Allergy, Unknown, 04/20/16) Home Medications ([Lactobacillus Acidophilus]) 1 TABLET TABLET 2 TABLET PO PCHS Amlodipine (Amlodipine) 5 Mg Tablet 5 MG PO BID Aspirin (Aspirin) 81 Mg Tablet 81 MG PO DAILY Atorvastatin (Lipitor) 20 Mg Tablet 40 MG PO HS Cefuroxime Axetil (Cefuroxime) 500 Mg Tablet 500 MG PO BID Cefuroxime Axetil (Cefuroxime) 250 Mg Tablet 500 MG PO BID Dabigatran Etexilate Mesylate (Pradaxa) 150 Mg Capsule 150 MG PO BID Hydrochlorothiazide (Hydrochlorothiazide) 25 Mg Tablet 25 MG PO DAILY Isosorbide MN ER (Isosorbide MN ER) 30 Mg Tab.er.24h 30 MG PO DAILY Lisinopril (Lisinopril) 20 Mg Tablet 40 MG PO DAILY Losartan Potassium (Losartan Potassium) 25 Mg Tablet 25 MG PO DAILY Metoprolol Tartrate (Metoprolol Tartrate) 100 Mg Tablet 100 MG PO BID Metronidazole (Flagyl) 500 Mg Tablet 500 MG PO Q8H Quetiapine Fumarate (Quetiapine Fumarate) 25 Mg Tablet 25 MG PO HS Scheduled PRN Acetaminophen (Acetaminophen) 325 Mg Tablet 650 MG PO Q4H PRN PRN For Pain Polyethylene Glycol 3350 (Miralax) 17 Gm Powd.pack 17 GM PO DAILY PRN PRN For Constipation PMH Encephalopathy, 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 Social History Hx Alcohol Use: No Hx Substance Use: No Smoking Status: Unknown if Ever Smoker Living Arrangement: [facility] Exam Vital Signs Vital Sign - Last Date Time Temp Pulse Resp B/P Pulse Ox O2 Delivery O2 Flow Rate FiO2 04/25/16 23:32 82 18 145/77 97 Nasal Cannula 2 04/25/16 21:06 36.5 Exam General: Sleeping/sedated in bed and snoring, in soft restraints, no acute distress HEENT: No cephalic atraumatic, neck supple no masses no JVD no adenopathy, Lungs: Clear bilaterally no crackles Heart: Regular rate, and rhythm no murmurs Abdomen: Abdomen skin with bruising, bowel sounds active, abdomen soft, Genitourinary: Luther catheter in place with small amount of blood at urethral meatus Extremities: Pulses equal and symmetric bilaterally upper/lower extremity Skin: Bruising on abdomen Neuro: Patient is sedated at time of exam Lab and Diagnostics Result Diagram: 04/25/16200904/25/162009 Assessment & Plan A 75 year old male with history of stroke, encephalopathy, CAD, HTN, and atrial fibrillation who presented to the ED with penile bleeding and associated penile pain onset approximately a week ago. He had a Luther catheter removed two days ago. Patient was admitted for penile pain and hemorrhage. Vital signs in ED: Temperature 36.5, pulse 82, blood pressure 145/77, respiratory rate 18, pulse ox 97% on 2 L. # Penile bleeding, Present on admission, active - UA significant for blood, grossly appeared dilute, - Luther catheter with balloon inflated in place. Draining light-colored serosanguineous urine. - Source of bleeding is likely urethral secondary to traumatic injury from removal catheter while balloon inflated. - Patient currently sedated and in soft restraints secondary to agitation and and likely sundowning. - Recommend urology consult in the morning - Luther catheter to remain in place - We will continue sedation with Haldol overnight, with reevaluation of patient mental status in the morning. # Healthcare acquired pneumonia, present on admission. Active - Chest x-ray on 04/20/2016 showed. IMPRESSION: Bibasilar atelectasis versus aspiration or pneumonia. Correlate clinically. - patient with recent hospitalization at [facility] - received ceftriaxone in ED - currently on outpatient medication cefepime and flagyl from prior hospitalization. 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 # Atrial fibrillation -Continue medication metoprolol tartrate 100 mg by mouth twice a day -Continue medication isosorbide 30 mg by mouth daily -Continue home medication Pradaxa 150 mg by mouth twice a day, and aspirin 81 mg , # Coronary artery disease with prior NSTEMI -Continue atorvastatin 40 mg by mouth daily at bedtime #Hyperlipidemia, - Atorvastatin #Hypertension -Continue amlodipine 5 mg by mouth twice a day, -Continue metoprolol tartrate 100 mg by mouth twice a day -Continue lisinopril 40 mg by mouth twice a day Hydrochlorothiazide 25 mg by mouth twice a day #Dementia - Takes home medication quetiapine 25 mg daily at bedtime PRNs - Acetaminophen as needed for mild pain/fever/headache - Bowel regimen as needed - Antiemetic as needed GI Prophylaxis: not indicated VTE Prophylaxis: on Pradaxa Resuscitation Status: DNR/DNI - patient's would states this is what patient expressed when last asked, she would like this to be confirmed with patient once patient is coherent Pain Evaluation: Adequate Pain Control Resuscitation Status: DNR/DNI:Do Not Resuscitate/Intubate Attending Statement The patient was seen and examined together with house staff on 04/26/2016 and I agree with the history, exam and plan as outlined in the note above. Pro Stanley DO Apr 26, 2016 00:47 Lelia Lyon DO Apr 26, 2016 03:26
[2016-04-26 02:12] LABS: Magnesium 1.9 mg/dL (1.6-2.6)
[2016-04-26] MEDS ORDERED: Haloperidol 5 mg/mL Inj IM PRN (03:25)
--- NOTE | 2016-04-26 04:18 | NUR ---
admit note: pt. admitted for hematuria, more confused, combative. pt. has hx of pulling out stoner cath w/ large amt hematuria and clots, ER was able to place new stoner cath. pt. confused upon arrival from ER, trying to climb out of bed, disoriented to time and place, soft wrist restraints applied, pt. currently sleeping , no need for haldol, pt. on tele afib 120's.
[2016-04-26 04:58] LABS: BASOPHILS % (AUTO) 0.9 % (0-3); EOSINOPHILS % (AUTO) 0.3 % (0-5); MONOCYTES % (AUTO) 11.9 % (4-12); Mean Corpuscular Hemoglobin 29.2 pg (27.0-35.0); NEUTROPHILS % (AUTO) 77.4 % (40-74); Platelet Count 384 bil/L (150-400)
--- NOTE | 2016-04-26 07:17 | NUR ---
Med Rec: Med rec completed from med list from provider from recent hospital discharge.
--- NOTE | 2016-04-26 09:32 | DRSVH ---
PROCEDURE: X-RAY CHEST ONE VIEW, PORTABLE ([id number]) INDICATIONS: Pneumonia TECHNIQUE: One view of the chest was acquired. COMPARISON: [facility], CR, XR CHEST 1VW (PORTABLE), 04/20/2016, 23:39. FINDINGS: Surgical changes and devices: None. Lungs and pleura: No pleural effusions or pneumothorax. Interval decrease in bibasilar airspace opa cities.. Mediastinum: Mediastinal contours appear normal. Heart size is normal. Bones and chest wall: No suspicious bony lesions. Overlying soft tissues appear unremarkable. IMPRESSION: Resolving atelectasis versus aspiration or pneumonia. Dictated by: Reggie Correa RRYung Interpreted: Pedro Pablo Cervantes MD on 04/26/2016 at 9:31 Transcribed by: NELLIE on 04/26/2016 at 9:32 Approved by: Pedro Pablo Cervantes M.D. on 04/26/2016 at 19:10
--- NOTE | 2016-04-26 11:12 | NUR ---
Called and spoke with Sera in transfer center at [facility], patient has not been assigned as he is new overnight. Once patient is assigned Sera will have RN call me. Updated TAX COLLECTOR
[2016-04-26] MEDS: Dabigatran 150 mg Capsule PO SCH ×2 (12:00→13:25)
[2016-04-26] MEDS: Isosorbide Mononitrate 30 mg ER24 Tablet PO SCH ×2 (12:00→13:25)
--- NOTE | 2016-04-26 13:38 | PCM.PNMED ---
Subjective Date of Service Apr 26, 2016 Subjective Still having bleeding from the penis. No chest pain, no dyspnea, no nausea or vomiting Exam Vital Signs Vital Sign - Last Date Time Temp Pulse Resp B/P Pulse Ox O2 Delivery O2 Flow Rate FiO2 04/26/16 11:41 36.7 81 16 157/98 94 Room Air 04/26/16 08:53 2.00 Intake and Output 04/25/16 04/25/16 04/26/16 Cumulative From/Thru 15:00 23:00 07:00 04/25/16 18:20 - 04/26/16 03:25 Intake Total 1000 ml 1000 ml Output Total 500 ml 500 ml Balance 500 ml 500 ml Intake Oral 0 ml 0 ml IV Total 1000 ml 1000 ml Output Urine Total 500 ml 500 ml # Bowel Movements 0 0 Exam Gen.- A+ O 3 no apparent distress. Well-nourished male sitting up in bed easily confused but also easily redirected Eyes- open conjunctiva clear, pupils equal nonicteric ENT- ears normal, nose normal Neck- supple/trach midline CVS- RRR no murmur or gallop Lungs- CTA GI- NABS/NT soft - shrunken penis, Luther in place with bright red blood coming from the meatus onto the pad around the Luther catheter Musc- moving 4 no obvious deformity Neuro- cranial nerves II through XII intact to gross examination, nonfocal Skin- warm and dry, no rashes/lesions/wounds noted Psych- pleasant and appropriate, Lab and Diagnostics Result Diagram: 04/26/16 0450 04/26/16 0450 X-Rays, CTs and MRIs CT KUB: A source of hematuria is not found. A Luther catheter fully empties the bladder lumen. No urinary tract stone is found. Stable appearance of renal cortical cysts with reference to the prior study from 04/21/16. Bilateral lung bases clear ictated by: Vasile Garcia M.D. on 04/25/2016 at 21:30 CXR -Resolving atelectasis versus aspiration or pneumonia. Dictated by: Reggie Correa RRA Interpreted: Pedro Pablo Cervantes MD on 04/26/2016 at 9:31 Assessment & Plan A 75 yo male readmitted the same 04/25 day he was discharged for what he is telling us [id number] penile pain and hematuria which was not noted the entire time he was in the hospital... Patient is an unreliable historian. Apparently there was bright red blood coming from the penile meatus and there is again today 04/26 interior source this looks like trauma to the urethra and the patient is on Pradaxa/aspirin there are no clots in the urine is flowing freely. Urology is being consulted to reassure SNF on time of discharge. This is not alarming unless there is blockage of urine and remainder follow-up can be done as outpatient if needed. # Penile bleeding, Present on admission, active- bleeding around the catheter so it appears to be external urethral 04/27 - UA significant for blood, grossly appeared dilute, - Luther catheter with balloon inflated in place. Draining light-colored serosanguineous urine. - Source of bleeding is likely urethral secondary to traumatic injury from removal catheter while balloon inflated. Does not make sense since it was pre- existing to catheter placement according to history obtained 04/26. After he removed his inflated Luther catheter himself in the emergency room bleeding internally makes more sense. - urology consulted 04/[address] Vega for recommendations/consultation - Luther catheter to remain in place till sees then per #Leukocytosis- uncertain source does not appear to be acute infection probably stress reaction, follow-up in the a.m. #A. fib with RVR-by telemetry as patient was not getting his usual medications. Resume these 04/26 #Acute/chronic encephalopathy-resume prior medications patient pulled out his own catheter due to confusion from multiple moves 04/25 hopefully we can discontinue this today gets a good day out of restraints and can go back to [facility] tomorrow 04/27. #HTN-uncontrolled patient was not getting his usual medications we are resuming these 04/26 # Healthcare acquired pneumonia, present on admission. Active- CT scan shows clear lung bases 04/25, resuming treatment by mouth patient is not hypoxemic or symptomatic. 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 # Atrial fibrillation -Continue medication metoprolol tartrate 100 mg by mouth twice a day -Continue medication isosorbide 30 mg by mouth daily -Continue home medication Pradaxa 150 mg by mouth twice a day, and aspirin 81 mg , # Coronary artery disease with prior NSTEMI- -Continue atorvastatin 40 mg by mouth daily at bedtime #Hyperlipidemia,- Atorvastatin #Hypertension- none of these were resumed on admission I am resuming them today 04/26 -Continue amlodipine 5 mg by mouth twice a day, -Continue metoprolol tartrate 100 mg by mouth twice a day -Continue lisinopril 40 mg by mouth twice a day Hydrochlorothiazide 25 mg by mouth twice a day #Dementia- Takes home medication quetiapine 25 mg daily at bedtime PRNs - Acetaminophen as needed for mild pain/fever/headache - Bowel regimen as needed - Antiemetic as needed GI Prophylaxis: not indicated VTE Prophylaxis: on Pradaxa Resuscitation Status: DNR/DNI - patient's would states this is what patient expressed when last asked, she would like this to be confirmed with patient once patient is coherent VTE Mechanical Devices: Intermittant Pneumatic CD Resuscitation Status: DNR/DNI:Do Not Resuscitate/Intubate Marcial Lainez MD Apr 26, 2016 13:38
--- NOTE | 2016-04-26 15:50 | NUR ---
Social Work: Initial Assessment SW met with patient and patient's , Alicia Freeman- [phone] at bedside to complete Initial assessment and to discuss discharge plan and readmissions concerns. Patient is a 75 y/o male that admitted due to combativeness, confussion and hematuria. Patient does not have a DPOA and declined information. Patient's PCP is Henry Jose DO. Patient's insurance is [employer]. Patient does not have VA benefits or LTC benefits. Patient was at [facility] for a few hours prior to readmitting. Patient resided in a 2 story home with two steps to enter and 14 steps on the inside. Patient was independent with ADL's, drove and has no DME at home. Patient does not have any HH or SNF history other than recent SNF stay. Patient states that patient was readmitted due to blood in catheter and insurance authorization. UR speciliast communicated with [facility] for auth re-approval. Patient will likely discharge back to [facility] pending further clinical course. Plan: Return to [facility] when medically stable pending [facility] auth. SW will continue to follow. Beverly PERRY Addendum: 04/26/16 at 1554 by CLAIRE MCNALLY Amended: Links added.
--- NOTE | 2016-04-26 15:50 | NUR ---
Mental status- Patient sleeping this am, but when he woke up he was alert and oriented to self and place.. Bilateral wrist restraints dc'd and patient has been cooperative with care and using call light appropriately. Needs reminding to leave the stoner cath. alone and that it is functioning. Stoner is draining red colored urine and at times there is a small amt. of blood coming from meatus. Up ambulating with PT and sitting up in chair at this time.
--- NOTE | 2016-04-26 15:59 | NUR ---
A-Fib/RVR- Notified by biomed tech that patients heart rate was up 160's. Patient awake and moving around in bed. MD notified and orders received to start cardiac meds. Meds given. Currently,patient's heart rate has been in the 90's at rest and with activity.
--- NOTE | 2016-04-26 19:05 | CONS ---
[address] [address] CONSULTATION REPORT PATIENT: ZEB BEARD : 1940 MR#: [id number] ADMIT: 04/26/2016 JOB ID: [id number] DATE OF SERVICE: 04/26/2016 REASON FOR CONSULTATION: Urethral bleeding. HISTORY OF PRESENT ILLNESS: I was asked to see the patient because of persistent urethral bleeding. He has a Luther catheter in place. Apparently this was pulled out several days ago with the balloon still inflated. Past medical, social, and family history: See admission history and physical. PHYSICAL EXAMINATION: On examination, he does have some difficulty with speech and a right hemiparesis secondary to stroke. Chest: Clear. Abdomen: Soft. Genitalia: Penis has a Luther catheter in place with minimal urethral bleeding. ASSESSMENT AND PLAN: This is urethral trauma and as such will heal spontaneously if his Luther catheter is not pulled out again. At this point, I am going to write some orders for changes in catheter care and I think he could be discharged at any time. I would plan on seeing him next week in the office.
[2016-04-26] MEDS ORDERED: Bacitracin Ointment Packet TOPICAL ONE (21:55)
[2016-04-27 00:46] VITALS: BP 138/73; PULSE 85; RESP 18; O2SAT 98
[2016-04-27] MEDS ORDERED: Haloperidol 5 mg/mL Inj IV PRN (01:06)
--- NOTE | 2016-04-27 01:08 | NUR ---
Behavior Pt is confused as to date and place. He is suspicious at times of health care workers. Restless. Sitting up in bed unable to sleep. Requires 1:1 sitter Care ongoing.
--- NOTE | 2016-04-27 02:00 | NUR ---
Behavior Pt given 2.5mg IV haldol. He is less restless. Attempts to go to sleep. Continues to require 1:1 sitter due to frequent requests. Calls out "Nurse!" often. Cont to provide calm reassuring environment. Care ongoing
[2016-04-27 04:59] VITALS: BP 145/64; PULSE 91; RESP 19; O2SAT 98
--- NOTE | 2016-04-27 07:33 | PCM.PNMED ---
Subjective Date of Service Apr 27, 2016 Subjective Patient has no complaints of chest pain, dyspnea, nausea or vomiting. He gets confused at night and acted up a little bit and apparently needed a little bit of extra tension but not a full on sitter last night. This morning he is pleasant and calm Exam Vital Signs Vital Sign - Last Date Time Temp Pulse Resp B/P Pulse Ox O2 Delivery O2 Flow Rate FiO2 04/27/16 04:59 36.6 91 19 145/64 98 Room Air 04/26/16 08:53 2.00 Intake and Output 04/26/16 04/26/16 04/27/16 Cumulative From/Thru 15:00 23:00 07:00 04/25/16 18:20 - 04/27/16 04:59 Intake Total 600 ml 200 ml 1800 ml Output Total 975 ml 1325 ml 2800 ml Balance -375 ml -1125 ml -1000 ml Intake Oral 600 ml 200 ml 800 ml IV Total 1000 ml Output Urine Total 975 ml 1325 ml 2800 ml # Bowel Movements 1 1 Exam Gen.- A+ O 2-3 no apparent distress. Well-nourished male sitting up in bed easily confused but also easily redirected Eyes- open conjunctiva clear, pupils equal nonicteric ENT- ears normal, nose normal Neck- supple/trach midline CVS- RRR Lungs- respirations regular and nonlabored no accessory muscles GI- generous pannus, slightly distended Musc- moving 4 no obvious deformity Neuro- cranial nerves II through XII intact to gross examination, nonfocal Skin- warm and dry, no rashes/lesions/wounds noted Psych- pleasant and appropriate Lab and Diagnostics Result Diagram: 04/26/16 0450 04/26/16 0450 X-Rays, CTs and MRIs CT KUB: A source of hematuria is not found. A Luther catheter fully empties the bladder lumen. No urinary tract stone is found. Stable appearance of renal cortical cysts with reference to the prior study from 04/21/16. Bilateral lung bases clear ictated by: Vasile Garcia M.D. on 04/25/2016 at 21:30 CXR -Resolving atelectasis versus aspiration or pneumonia. Dictated by: Reggie Correa RRA Interpreted: Pedro Pablo Cervantes MD on 04/26/2016 at 9:31 Assessment & Plan A 75 yo male readmitted the same 04/25 day he was discharged for what he is telling us [id number] penile pain and hematuria which was not noted the entire time he was in the hospital... Patient is an unreliable historian. Apparently there was bright red blood coming from the penile meatus and there is again today 04/26 interior source this looks like trauma to the urethra and the patient is on Pradaxa/aspirin there are no clots in the urine is flowing freely. 04/26 Urology is being consulted to reassure SNF on time of discharge. This is not alarming unless there is blockage of urine and remainder follow-up can be done as outpatient if needed. 04/27 unfortunately patient to restless evening and then daily she usual evening Seroquel 25 mg and there was a sitter placed and the patient received Haldol. Ordering Seroquel for this evening and hopefully Aceta will not be required and he will be dischargeable 04/28. 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 Seroquel as above. #Hypokalemia-replace and follow. # Penile bleeding, Present on admission, active- bleeding around the catheter so it appears to be external urethral 04/27, Hg 11.5 04/27 - UA significant for blood, grossly appeared dilute, - Luther catheter with balloon inflated in place. Draining light-colored serosanguineous urine. - Source of bleeding is likely urethral secondary to traumatic injury from removal catheter while balloon inflated. Does not make sense since it was pre- existing to catheter placement according to history obtained 04/26. After he removed his inflated Luther catheter himself in the emergency room bleeding internally makes more sense. - urology consulted 04/[address] Vega for recommendations/consultation - Luther catheter to remain in place till sees then per #Leukocytosis- uncertain source does not appear to be acute infection probably stress reaction, WBC 17.3 04/26, 13.6 04/27 #A. fib with RVR-by telemetry as patient was not getting his usual medications. Resume these 04/26 no issues 04/27 discontinuing telemetry 04/27 HR 69-117 04/27 #Acute/chronic encephalopathy-resume prior medications patient pulled out his own catheter due to confusion from multiple moves 04/25 hopefully we can discontinue this today gets a good day out of restraints and can go back to [facility] tomorrow 04/27. #HTN-uncontrolled on admit patient was not getting his usual medications we are resuming these 04/26 BP 126/65-145/64 04/27 # Healthcare acquired pneumonia, present on admission. Active- CT scan shows clear lung bases 04/25, resuming treatment by mouth patient is not hypoxemic or symptomatic. Resume cefuroxime/Flagyl 04/27- 05/01ish # Recent hx of CVA's, present on admission- Will continue outpatient medications Aspirin and Pradaxa Other chronic problems # Atrial fibrillation -Continue medication metoprolol tartrate 100 mg by mouth twice a day -Continue medication isosorbide 30 mg by mouth daily -Continue home medication Pradaxa 150 mg by mouth twice a day, and aspirin 81 mg , # Coronary artery disease with prior NSTEMI- -Continue atorvastatin 40 mg by mouth daily at bedtime #Hyperlipidemia,- Atorvastatin #Hypertension- none of these were resumed on admission I am resuming them today 04/26 -Continue amlodipine 5 mg by mouth twice a day, -Continue metoprolol tartrate 100 mg by mouth twice a day -Continue lisinopril 40 mg by mouth twice a day Hydrochlorothiazide 25 mg by mouth twice a day #Dementia- Takes home medication quetiapine 25 mg daily at bedtime PRNs - Acetaminophen as needed for mild pain/fever/headache - Bowel regimen as needed - Antiemetic as needed GI Prophylaxis: not indicated VTE Prophylaxis: on Pradaxa Resuscitation Status: DNR/DNI - patient's would states this is what patient expressed when last asked, she would like this to be confirmed with patient once patient is coherent VTE Mechanical Devices: Intermittant Pneumatic CD Resuscitation Status: DNR/DNI:Do Not Resuscitate/Intubate Marcial Lainez MD Apr 27, 2016 07:33
[2016-04-27 07:37] VITALS: BP 126/65; PULSE 69; RESP 18; O2SAT 94
[2016-04-27 07:56] VITALS: PULSE 117
[2016-04-27 08:02] LABS: EOSINOPHILS % (AUTO) 0.6 % (0-5); MONOCYTES % (AUTO) 13.1 % (4-12); Mean Corpuscular Volume 85.6 fL (81-100); NEUTROPHILS % (AUTO) 73.1 % (40-74); Platelet Count 383 bil/L (150-400)
[2016-04-27] MEDS: Dabigatran 150 mg Capsule PO SCH ×2 (09:03→21:08)
[2016-04-27] MEDS: Bacitracin Zinc 15 Gm Ointment TOPICAL PRN ×2 (09:06→14:20)
--- NOTE | 2016-04-27 11:17 | NUR ---
Tete Epstein dc @ [id number]
[2016-04-27 13:26] VITALS: BP 119/68; PULSE 59; RESP 18; O2SAT 96
[2016-04-27 15:07] LABS: COLOR,URINE YELLOW (YELLOW)
[2016-04-27 15:08] LABS: APPEARANCE,URINE HAZY (CLEAR,HAZY); OCCULT BLOOD,URINE LARGE (NEGATIVE)
[2016-04-27 15:11] LABS: UROBILINOGEN,URINE NORMAL (NORMAL)
--- NOTE | 2016-04-27 18:33 | NUR ---
Activity Pt using call light appropriately, needs cuing to leave catheter alone. Up ambulating hallways several times this shift w/ gait belt, FWW, 1 person assist and cuing on FWW use. Bed down and locked, call light w/in reach. [place] alarm on.
[2016-04-27 20:01] VITALS: BP 131/63; PULSE 91; RESP 17; O2SAT 96
--- NOTE | 2016-04-27 22:10 | NUR ---
UNWITNESSED FALL 2205 NAC enters room, pt found on ground with [place] alarm going off. in room at the time of the event. Pt states he attempted to get OOB and fell. Pt wearing nonskid socks, states no injury and no contact of head to ground. Skin tear noted on hand, tegaderm applied. Pt has 1:1 sitter at 2300 and will remain for rest of shift. At the time of mandrel press hand pt is AOx1 self, he is resistant to following commands and catheter care.
[2016-04-28 04:59] VITALS: BP 122/64; PULSE 82; RESP 17; O2SAT 98
--- NOTE | 2016-04-28 05:21 | NUR ---
Sitter/Hematuria 1:1 sitter provided post fall, pt remains impulsive and confused, requiring redirection and reorientation, remains in room sleeping. Following catheter care, bacetracin applied to meatus. MD notified of fall, orders obtained for catheter flush due to blood clots; Flushed at 2315 and approx 400 ml dark red urine and clots drained. Following urine appears clear-pink and small clots apparent. Pt takes PO meds with water, no complaints of SOB, chest pain, or further bladder pain/spasms. Care continues
[2016-04-28 05:22] LABS: Mean Corpuscular Volume 86.1 fL (81-100); Platelet Count 422 bil/L (150-400)
[2016-04-28 06:09] LABS: BASOPHILS % (AUTO) 0 % (0-3); EOSINOPHILS % (AUTO) 0 % (0-5); MONOCYTES % (AUTO) 13 % (4-12); NEUTROPHILS % (AUTO) 61 % (40-74)
[2016-04-28] MEDS ORDERED: Potassium Chloride 20 mEq/15 mL 15mL Oral Soln PO ONE ×2 (07:35→13:20)
[2016-04-28] MEDS ORDERED: Potassium Chloride 20 mEq SR Tablet PO ONE (08:00)
[2016-04-28] MEDS: Dabigatran 150 mg Capsule PO SCH ×2 (09:03→21:53)
[2016-04-28] MEDS: Isosorbide Mononitrate 30 mg ER24 Tablet PO SCH (09:03)
[2016-04-28] MEDS ORDERED: LEVO750T9 PO (09:28)
--- NOTE | 2016-04-28 10:23 | NUR ---
Called and spoke Nusrat Abdalla Cm at [facility] [phone], asked her to review patient for SNF transfer. This is likely to happen in the next 1-2 days but want the process started early. Updated PRESS SUPERVISOR
--- NOTE | 2016-04-28 12:08 | PCM.PNMED ---
Subjective Date of Service Apr 28, 2016 Subjective Patient had fall, needed sitter, received haldol for agitation, thus unable to d /c today pt denied any pain this AM remained confused, oriented to himself thinks that patient is at his baseline MS maintained stoner cath, no gross hematuria noted Denied suprapubic pain Exam Vital Signs Vital Sign - Last Date Time Temp Pulse Resp B/P Pulse Ox O2 Delivery O2 Flow Rate FiO2 04/28/16 04:59 36.5 82 17 122/64 98 Room Air 04/26/16 08:53 2.00 Intake and Output 04/27/16 04/27/16 04/28/16 Cumulative From/Thru 15:00 23:00 07:00 04/25/16 18:20 - 04/28/16 05:01 Intake Total 800 ml 600 ml 3200 ml Output Total 950 ml 1250 ml 5000 ml Balance -150 ml -650 ml -1800 ml Intake Oral 800 ml 600 ml 2200 ml IV Total 1000 ml Output Urine Total 950 ml 1250 ml 5000 ml # Bowel Movements 1 2 Exam NAD, comfortably laying down on the bed no JVD, MMM, no LAD RRR, nl s1, s2 no mrg CTAB, no w,c S,ND,NT,normoactive BS+ warm, no edema, pulses 2/2 IVs and Medications Medications Reviewed: Medications were reviewed in detail Lab and Diagnostics Result Diagram: 04/28/16 0440 04/28/16 0440 X-Rays, CTs and MRIs CT KUB: A source of hematuria is not found. A Stoner catheter fully empties the bladder lumen. No urinary tract stone is found. Stable appearance of renal cortical cysts with reference to the prior study from 04/21/16. Bilateral lung bases clear ictated by: Vasile Garcia M.D. on 04/25/2016 at 21:30 CXR -Resolving atelectasis versus aspiration or pneumonia. Dictated by: Reggie Correa A Interpreted: Pedro Pablo Cervantes MD on 04/26/2016 at 9:31 Assessment & Plan A 75 yo male readmitted the same /6 day he was discharged for what he is telling us [id number] penile pain and hematuria which was not noted the entire time he was in the hospital... Patient is an unreliable historian. Apparently there was bright red blood coming from the penile meatus and there is again today 04/26 interior source this looks like trauma to the urethra and the patient is on Pradaxa/aspirin there are no clots in the urine is flowing freely. 04/26 Urology is being consulted to reassure SNF on time of discharge. This is not alarming unless there is blockage of urine and remainder follow-up can be done as outpatient if needed. 04/27 unfortunately patient to restless evening and then daily she usual evening Seroquel 25 mg and there was a sitter placed and the patient received Haldol. Ordering Seroquel for this evening and hopefully Aceta will not be required and he will be dischargeable 04/28. The patient remained stable, pending d/c due to delirium requiring sitter/haldol , PLEASE AVOID HALDOL OR PHYSICAL RESTRAITNS USE SEROQUEL INSTEAD for tonight. 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 multifactorial-underlying vascular dementia, hospital delirium, will use Seroquel as above. # Penile bleeding, Present on admission,due to urethral tear, h/h stable -per , keep stoner for now, follow OP with resolved, stable #Hypokalemia-replace and follow. #Leukocytosis- uncertain source does not appear to be acute infection probably stress reaction, WBC 17.3 04/26, 13.6 04/27 #A. fib with RVR-by telemetry as patient was not getting his usual medications. Resume these 04/26 no issues 04/27 discontinuing telemetry 04/27 HR 69-117 04/27 #Acute/chronic encephalopathy-resume prior medications patient pulled out his own catheter due to confusion from multiple moves 04/25 hopefully we can discontinue this today gets a good day out of restraints and can go back to [facility] tomorrow 04/27. #HTN-uncontrolled on admit patient was not getting his usual medications we are resuming these 04/26 BP 126/65-145/64 04/27 # Healthcare acquired pneumonia, present on admission. Active- CT scan shows clear lung bases 04/25, resuming treatment by mouth patient is not hypoxemic or symptomatic. Resume cefuroxime/Flagyl 04/27- 05/01ish # Recent hx of CVA's, present on admission- Will continue outpatient medications Aspirin and Pradaxa Other chronic problems # Atrial fibrillation -Continue medication metoprolol tartrate 100 mg by mouth twice a day -Continue medication isosorbide 30 mg by mouth daily -Continue home medication Pradaxa 150 mg by mouth twice a day, and aspirin 81 mg , # Coronary artery disease with prior NSTEMI- -Continue atorvastatin 40 mg by mouth daily at bedtime #Hyperlipidemia,- Atorvastatin #Hypertension- none of these were resumed on admission I am resuming them today 04/26 -Continue amlodipine 5 mg by mouth twice a day, -Continue metoprolol tartrate 100 mg by mouth twice a day -Continue lisinopril 40 mg by mouth twice a day Hydrochlorothiazide 25 mg by mouth twice a day #Dementia- Takes home medication quetiapine 25 mg daily at bedtime PRNs - Acetaminophen as needed for mild pain/fever/headache - Bowel regimen as needed - Antiemetic as needed GI Prophylaxis: not indicated VTE Prophylaxis: on Pradaxa Resuscitation Status: DNR/DNI - patient's would states this is what patient expressed when last asked, she would like this to be confirmed with patient once patient is coherent VTE Mechanical Devices: Intermittant Pneumatic CD Resuscitation Status: DNR/DNI:Do Not Resuscitate/Intubate Time spent 35 minutes New Piper MD Apr 28, 2016 12:08
[2016-04-28 14:23] VITALS: BP 123/81; PULSE 89; RESP 16; O2SAT 95
--- NOTE | 2016-04-28 14:24 | NUR ---
Social Work Continued Discharge Planning: SW met with patient and at bedside to discuss discharge plan. Plan remains as SNF placement at [facility]. Patient obtained a sitter and Haldol over night due to recent fall. Per report in rounds, Rn and staff aware to discontinue sitter and Haldol for transfer to rehab tomorrow to [facility]. Patient and updated. UR specialist coordinating with insurance for auth. SW to follow. PLAN: [facility] pending auth and clinical course Beverly PERRY
--- NOTE | 2016-04-28 14:34 | NUR ---
Evaluation completed. Please go to "Notes" then click on "Assessments and Notes" (bottom left corner of screen). Then select appropriate discipline tab on top of screen.
--- NOTE | 2016-04-28 19:01 | NUR ---
Catheter Flush Patient stated that he felt the urge to urinate, despite having stoner catheter in place. Patient bladder scanned and found to have greater than 300 ml of urine in bladder. Stoner irrigated, facilitating the passage of few clots. Urine then able to drain to gravity without difficulty. Patient denies any other discomfort or urge to urinate. Care is ongoing.
[2016-04-28 20:39] VITALS: BP 120/55; PULSE 57; RESP 18; O2SAT 94
[2016-04-29] VITALS (7 sets, daily range): BP systolic 92–127; BP diastolic 57–75; PULSE 57–82; RESP 15–22; O2SAT 94–96
--- NOTE | 2016-04-29 03:58 | NUR ---
Activity/Sitter Sitter 1:1 this shift for safety- pt remains impulsive, confused, and uncooperative while awake at night. Reminders to wait for assitance to get OOB and to not pull at stoner line. Pt insists on wearing pants, getting OOB to recliner, and attempts to use telephone to call family late at night. Stoner is patent and draining yellow urine, no clots visible this shift and no blood at meatus. Pt reports no pain, no GI distress, pt requests O2 and put on 1Lnc for comfort while sleeping. Care continues No haldol or other restraints this shift
[2016-04-29 05:26] LABS: Mean Corpuscular Hemoglobin 28.7 pg (27.0-35.0); Platelet Count 454 bil/L (150-400)
[2016-04-29 05:44] LABS: Magnesium 1.7 mg/dL (1.6-2.6); Phosphorus 3.2 mg/dL (2.5-4.9)
[2016-04-29 06:02] LABS: BASOPHILS % (AUTO) 0 % (0-3); EOSINOPHILS % (AUTO) 1 % (0-5); MONOCYTES % (AUTO) 14 % (4-12); NEUTROPHILS % (AUTO) 75 % (40-74)
--- NOTE | 2016-04-29 09:06 | PCM.PNMED ---
Subjective Date of Service Apr 29, 2016 Subjective Patient had sitter overnight No Haldol, physical restraint was applied pt was calm and cooperative this AM, denied any complaints Exam Vital Signs Vital Sign - Last Date Time Temp Pulse Resp B/P Pulse Ox O2 Delivery O2 Flow Rate FiO2 04/29/16 04:41 36.5 57 18 111/69 96 Nasal Cannula 1.00 Intake and Output 04/28/16 04/28/16 04/29/16 Cumulative From/Thru 15:00 23:00 07:00 04/25/16 18:20 - 04/29/16 04:41 Intake Total 1888 ml 1000 ml 6088 ml Output Total 850 ml 650 ml 6500 ml Balance 1038 ml 350 ml -412 ml Intake Oral 1888 ml 1000 ml 5088 ml IV Total 1000 ml Output Urine Total 850 ml 650 ml 6500 ml # Bowel Movements 2 0 4 Exam NAD, comfortably laying down on the bed no JVD, MMM, no LAD RRR, nl s1, s2 no mrg CTAB, no w,c S,ND,NT,normoactive BS+ warm, no edema, pulses 2/2 IVs and Medications Medications Reviewed: Medications were reviewed in detail Lab and Diagnostics Result Diagram: 04/29/16 0504 04/29/16 0504 X-Rays, CTs and MRIs CT KUB: A source of hematuria is not found. A Stoner catheter fully empties the bladder lumen. No urinary tract stone is found. Stable appearance of renal cortical cysts with reference to the prior study from 04/21/16. Bilateral lung bases clear ictated by: Vasile Garcia M.D. on 04/25/2016 at 21:30 CXR -Resolving atelectasis versus aspiration or pneumonia. Dictated by: Reggie Correa RRA Interpreted: Pedro Pablo Cervantes MD on 04/26/2016 at 9:31 Assessment & Plan A 75 yo male readmitted the same 04/25 day he was discharged for what he is telling us [id number] penile pain and hematuria which was not noted the entire time he was in the hospital... Patient is an unreliable historian. Apparently there was bright red blood coming from the penile meatus and there is again today 04/26 interior source this looks like trauma to the urethra and the patient is on Pradaxa/aspirin there are no clots in the urine is flowing freely. 04/26 Urology is being consulted to reassure SNF on time of discharge. This is not alarming unless there is blockage of urine and remainder follow-up can be done as outpatient if needed. 04/27 unfortunately patient to restless evening and then daily she usual evening Seroquel 25 mg and there was a sitter placed and the patient received Haldol. Ordering Seroquel for this evening and hopefully Aceta will not be required and he will be dischargeable 04/28. The patient remained stable, pending d/c due to delirium requiring sitter again , PLEASE AVOID SITTER, HALDOL OR PHYSICAL RESTRAITNS, USE SEROQUEL INSTEAD for tonight. 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 multifactorial-underlying vascular dementia, hospital delirium, will use Seroquel as above. # Penile bleeding, Present on admission,due to urethral tear, h/h stable -per , keep stoner for now, follow OP with resolved, stable #Hypokalemia-replace and follow. #Leukocytosis- uncertain source does not appear to be acute infection probably stress reaction, WBC 17.3 04/26, 13.6 04/27 #A. fib with RVR-by telemetry as patient was not getting his usual medications. Resume these 04/26 no issues 04/27 discontinuing telemetry 04/27 HR 69-117 04/27 #Acute/chronic encephalopathy-resume prior medications patient pulled out his own catheter due to confusion from multiple moves 04/25 hopefully we can discontinue this today gets a good day out of restraints and can go back to [facility] tomorrow 04/27. #HTN-uncontrolled on admit patient was not getting his usual medications we are resuming these 04/26 BP 126/65-145/64 04/27 # Healthcare acquired pneumonia, present on admission. Active- CT scan shows clear lung bases 04/25, resuming treatment by mouth patient is not hypoxemic or symptomatic. Resume cefuroxime/Flagyl 04/27- 05/01ish # Recent hx of CVA's, present on admission- Will continue outpatient medications Aspirin and Pradaxa Other chronic problems # Atrial fibrillation -Continue medication metoprolol tartrate 100 mg by mouth twice a day -Continue medication isosorbide 30 mg by mouth daily -Continue home medication Pradaxa 150 mg by mouth twice a day, and aspirin 81 mg , # Coronary artery disease with prior NSTEMI- -Continue atorvastatin 40 mg by mouth daily at bedtime #Hyperlipidemia,- Atorvastatin #Hypertension- none of these were resumed on admission I am resuming them today 04/26 -Continue amlodipine 5 mg by mouth twice a day, -Continue metoprolol tartrate 100 mg by mouth twice a day -Continue lisinopril 40 mg by mouth twice a day Hydrochlorothiazide 25 mg by mouth twice a day #Dementia- Takes home medication quetiapine 25 mg daily at bedtime PRNs - Acetaminophen as needed for mild pain/fever/headache - Bowel regimen as needed - Antiemetic as needed GI Prophylaxis: not indicated VTE Prophylaxis: on Pradaxa Resuscitation Status: DNR/DNI - patient's would states this is what patient expressed when last asked, she would like this to be confirmed with patient once patient is coherent VTE Mechanical Devices: Intermittant Pneumatic CD Resuscitation Status: DNR/DNI:Do Not Resuscitate/Intubate Time spent 35 minutes New Piper MD Apr 29, 2016 09:06
[2016-04-29] MEDS: Dabigatran 150 mg Capsule PO SCH ×2 (09:10→20:46)
[2016-04-29] MEDS: Isosorbide Mononitrate 30 mg ER24 Tablet PO SCH (09:10)
--- NOTE | 2016-04-29 10:55 | NUR ---
Called and left message for Nusrat Gannon CM at [facility] and asked her about review for this patient and the potential.for discharge over the weekend. Patient was sitter free starting at 7AM this morning. Updated APPLICATION PACKAGER Addendum: 04/29/16 at 1328 by NORBERT JEAN-BAPTISTE CM Called and left additional message for Nusrat Gannon she let me know this patient has been sent to the medical artist. Asked her let UR GLENN Levine know outcome for auth or denial. Updated APPLICATION PACKAGER
--- NOTE | 2016-04-29 15:29 | NUR ---
Case Management Notified by Chio Gannon CM at [facility] that they are denying SNF authorization. Per Chio Gannon, she will contact pt's and explain denial, and provide phone number for appeal. Sully PERRY notified of denial of SNF. Addendum: 04/29/16 at 1720 by AURELIANO CATHERINE SS Pt's is at pt's bedside. I spoke with her regarding [facility] decision to deny d/c to SNF. She has the phone number for [facility] appeals and was speaking with them as I left the room.
--- NOTE | 2016-04-29 15:47 | NUR ---
Evaluation completed. Please go to "Notes" then click on "Assessments and Notes" (bottom left corner of screen). Then select appropriate discipline tab on top of screen.
--- NOTE | 2016-04-29 15:55 | NUR ---
Social Work Discharge: YANETH spoke to UR specialist who states that patient denied by [facility] for SNF placement at [facility]. SW spoke to patient and at bedside. Patient upset and states being unable to care for patient needs. Patient wishes to speak with insurance company regarding denial. UR aware and advised to notify [facility] to contact at bedside. to appeal once discussion with insurance made. [facility] choice list provided and resource handbook provided. SW to follow Beverly PERRY Addendum: 04/29/16 at 1624 by CLAIRE MCNALLY UR specialist and Sw met with patient at bedside. to appeal decision. Patient states she has available funds to pay privately for rehab. YANETH spoke to admissions rep Mere at [facility], who was made aware and states that patient bed given away as a result to no bed hold. She to review list tomorrow to determine bed avaiability status. She to discuss private pay costs with . SW to follow Beverly PERRY
--- NOTE | 2016-04-29 17:57 | NUR ---
Mentation, Luther Draining Patient mainly appropriate this shift, answering questions properly. Patient alert and oriented to self and place. Luther catheter drained clear, light colored urine this shift, not requiring flushing. Care is ongoing. Addendum: 04/29/16 at 1826 by KAYLIN ARMANDO RN Blood Pressure Patient blood pressure found to be somewhat low at 92/57. Patient asymptomatic, denies any dizziness, lightheadedness or other difficulty. HR 75. Patient encouraged to increase oral intake. Provider notified, no new orders received. Blood pressure rechecked, had increased to 103/64, HR 57. Care is ongoing.
--- NOTE | 2016-04-30 03:40 | NUR ---
activity pt has acted appropriately this shift. he is oriented to self and place and answers questions appropriately. seroquel was given to pt at bedtime and he quickly fell asleep afterwards and has not attempted to get out of bed unassisted. stoner cath is draining light clear urine. no blood or clots noted, no need to flush. pt is aware that his stoner cath is in place and he has not attempted to remove. care continues.
[2016-04-30 05:25] VITALS: BP 124/78; PULSE 78; RESP 20; O2SAT 94
[2016-04-30 05:52] LABS: BASOPHILS % (AUTO) 1.8 % (0-3); EOSINOPHILS % (AUTO) 1.1 % (0-5); Mean Corpuscular Volume 86.1 fL (81-100); Platelet Count 487 bil/L (150-400)
[2016-04-30 06:00] LABS: Magnesium 1.7 mg/dL (1.6-2.6); Phosphorus 3.5 mg/dL (2.5-4.9)
[2016-04-30] MEDS: Isosorbide Mononitrate 30 mg ER24 Tablet PO SCH (07:59)
[2016-04-30] MEDS: Dabigatran 150 mg Capsule PO SCH ×2 (07:59→21:26)
[2016-04-30 09:01] VITALS: BP 107/68; PULSE 79; RESP 18; O2SAT 97
--- NOTE | 2016-04-30 09:20 | NUR ---
FLOR signed. VICKY Adames
--- NOTE | 2016-04-30 14:13 | PCM.PNMED ---
Subjective Date of Service Apr 30, 2016 Subjective Patient remained calm overnight Did not require sitter, haldol, restraints Exam Vital Signs Vital Sign - Last Date Time Temp Pulse Resp B/P Pulse Ox O2 Delivery O2 Flow Rate FiO2 04/30/16 13:15 Room Air 04/30/16 09:01 36.4 79 18 107/68 97 04/29/16 11:01 1.00 Intake and Output 04/29/16 04/29/16 04/30/16 Cumulative From/Thru 15:00 23:00 07:00 04/25/16 18:20 - 04/30/16 06:11 Intake Total 1272 ml 400 ml 7760 ml Output Total 900 ml 1150 ml 8550 ml Balance 372 ml -750 ml -790 ml Intake Oral 1272 ml 400 ml 6760 ml IV Total 1000 ml Output Urine Total 900 ml 1150 ml 8550 ml # Bowel Movements 0 1 5 Exam NAD, comfortably laying down on the bed no JVD, MMM, no LAD RRR, nl s1, s2 no mrg CTAB, no w,c S,ND,NT,normoactive BS+ warm, no edema, pulses 2/2 IVs and Medications Medications Reviewed: Medications were reviewed in detail Lab and Diagnostics Result Diagram: 04/30/16 0509 04/30/16 0509 X-Rays, CTs and MRIs CT KUB: A source of hematuria is not found. A Stoner catheter fully empties the bladder lumen. No urinary tract stone is found. Stable appearance of renal cortical cysts with reference to the prior study from 04/21/16. Bilateral lung bases clear ictated by: Vasile Garcia M.D. on 04/25/2016 at 21:30 CXR -Resolving atelectasis versus aspiration or pneumonia. Dictated by: Reggie Correa RRA Interpreted: Pedro Pablo Cervantes MD on 04/26/2016 at 9:31 Assessment & Plan A 75 yo male readmitted the same 04/25 day he was discharged for what he is telling us [id number] penile pain and hematuria which was not noted the entire time he was in the hospital... Patient is an unreliable historian. Apparently there was bright red blood coming from the penile meatus and there is again today 04/26 interior source this looks like trauma to the urethra and the patient is on Pradaxa/aspirin there are no clots in the urine is flowing freely. 04/26 Urology is being consulted to reassure SNF on time of discharge. This is not alarming unless there is blockage of urine and remainder follow-up can be done as outpatient if needed. 04/27 unfortunately patient to restless evening and then daily she usual evening Seroquel 25 mg and there was a sitter placed and the patient received Haldol. Ordering Seroquel for this evening and hopefully Aceta will not be required and he will be dischargeable 04/28. 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 multifactorial-underlying vascular dementia, hospital delirium, will use Seroquel as above. # Penile bleeding, Present on admission,due to urethral tear, h/h stable -per , keep stoner for now, follow OP with resolved, stable #Hypokalemia-replace and follow. #Leukocytosis- uncertain source does not appear to be acute infection probably stress reaction, WBC 17.3 04/26, 13.6 04/27 #A. fib with RVR-by telemetry as patient was not getting his usual medications. Resume these 04/26 no issues 04/27 discontinuing telemetry 04/27 HR 69-117 04/27 #Acute/chronic encephalopathy-resume prior medications patient pulled out his own catheter due to confusion from multiple moves 04/25 hopefully we can discontinue this today gets a good day out of restraints and can go back to [facility] tomorrow 04/27. #HTN-uncontrolled on admit patient was not getting his usual medications we are resuming these 04/26 BP 126/65-145/64 04/27 # Healthcare acquired pneumonia, present on admission. Active- CT scan shows clear lung bases 04/25, resuming treatment by mouth patient is not hypoxemic or symptomatic. Resume cefuroxime/Flagyl 04/27- 05/01ish # Recent hx of CVA's, present on admission- Will continue outpatient medications Aspirin and Pradaxa Other chronic problems # Atrial fibrillation -Continue medication metoprolol tartrate 100 mg by mouth twice a day -Continue medication isosorbide 30 mg by mouth daily -Continue home medication Pradaxa 150 mg by mouth twice a day, and aspirin 81 mg , # Coronary artery disease with prior NSTEMI- -Continue atorvastatin 40 mg by mouth daily at bedtime #Hyperlipidemia,- Atorvastatin #Hypertension- none of these were resumed on admission I am resuming them today 04/26 -Continue amlodipine 5 mg by mouth twice a day, -Continue metoprolol tartrate 100 mg by mouth twice a day -Continue lisinopril 40 mg by mouth twice a day Hydrochlorothiazide 25 mg by mouth twice a day #Dementia- Takes home medication quetiapine 25 mg daily at bedtime PRNs - Acetaminophen as needed for mild pain/fever/headache - Bowel regimen as needed - Antiemetic as needed GI Prophylaxis: not indicated VTE Prophylaxis: on Pradaxa Resuscitation Status: DNR/DNI - patient's would states this is what patient expressed when last asked, she would like this to be confirmed with patient once patient is coherent VTE Mechanical Devices: Intermittant Pneumatic CD Resuscitation Status: DNR/DNI:Do Not Resuscitate/Intubate Time spent 35min New Piper MD Apr 30, 2016 14:13
--- NOTE | 2016-04-30 14:32 | NUR ---
Social Work-continued d/c planning: Data:EMR reviewed. Pt is on day 4 of hospitalization for combative confused per H&P. YANETH followed up with pt's at bedside, SW role explained. Pt resides at home with his , but had been at [facility] prior to admissions. reviewed case yesterday and SNF denied SNF placement. SW called Mere at [facility] this morning regarding pt. Mere states that pt's had come over to facility and does not want pt to be discharged from the hospital prior to decision coming back. YANETH followed up with pt and at bedside, SW role explained. SW explained that pt's do not typically stay in the hospital while this decision is determined. SW explained that pt's could either take pt home or pay privately for SNF. SW also discussed appeal of discharge from the hospital if pt's does not feel like he is medically stable to leave. YANETH asked UR GLENN Levine to follow up with and have called today. Paperwork in the chart. SW will continue to follow. Assessment:Pt who would benefit from SNF. Plan:Pt to discharge to [facility] or home with . has denied SNF, but has submitted appeal. Paperwork in the chart. SW will continue to follow. VICKY Adames
[2016-04-30 14:55] VITALS: BP 103/59; PULSE 69; RESP 16; O2SAT 96
--- NOTE | 2016-04-30 15:46 | NUR ---
Case Management D: I spoke with Tran earlier today about pt's appeal of SNF denial. I provided Tran with the pt's phone number in room where is. She stated she would call her in pt's room, she had already left message at pt's home as had Chio Gannon yesterday. I spoke with with Tran again this afternoon. She did speak with pt's , appeal is in progress and can take 72 hours to complete.
--- NOTE | 2016-04-30 15:58 | NUR ---
ACTIVITY Patient ambulated around hallway x2 with FWW 1 person assistance. C/o aching legs after ambulating with therapy, but declined any pain medications and stated "I already take about 30 medications a day." Up in chair for breakfast and lunch. Good appetite. Continue to monitor hourly.
[2016-04-30 19:55] VITALS: BP 104/64; PULSE 80; RESP 18; O2SAT 96
--- NOTE | 2016-04-30 22:26 | NUR ---
Activity/ Mentation Pt. has gotten out of bed to use bathroom with SBA w/ FWW which pt. tolerates well. Pt. has silva bed alarm in place for safety, and because pt. is a high risk for falls. Pt. was asking off the wall questions during assessment. Such as "are my medications made from plants or do they come from dirt?". Otherwise, pt. is alert and oriented x3 and is aware he is in the hospital. Will continue to monitor.
[2016-05-01] VITALS (10 sets, daily range): BP systolic 80–178; BP diastolic 49–95; PULSE 17–89; RESP 15–17; O2SAT 92–96
--- NOTE | 2016-05-01 03:30 | NUR ---
Update on Activity Pt. has improved throughout the night, and is no longer asking off the wall questions. The earlier questions may have been due to his dementia. Regardless, pt. is using call light appropriately, and has been sleeping well through the night. Will continue to monitor.
[2016-05-01 07:51] LABS: BASOPHILS % (AUTO) 1.5 % (0-3); EOSINOPHILS % (AUTO) 1.2 % (0-5); MONOCYTES % (AUTO) 14.8 % (4-12); Mean Corpuscular Hemoglobin 28.6 pg (27.0-35.0); NEUTROPHILS % (AUTO) 68.1 % (40-74); Platelet Count 506 bil/L (150-400)
--- NOTE | 2016-05-01 07:55 | PCM.DIMED ---
Discharge Instructions Date of Service Apr 28, 2016 Dates of Hospitalization Apr 26, 2016 at 00:44 Discharge Diagnosis Discharge Diagnosis Hematuria with uretheral damage due to traumatic stoner catherter discontinuation HCAP Medication Instructions Please take antibiotics, metronidazole and cefuroxime one more day and stop Diet No restrictions Activity No restrictions Patient Instructions You were hospitalized with bloody urine and pneumonia Please note that you should keep urine catheter until you see Urologist. Follow-up plan Please follow up with in following week. Follow-up Provider: Marilyn Vega MD Follow-up with PCP in: 1 week Provider: Henry Jose DO Follow-up in: 2 weeks New Piper MD Apr 28, 2016 09:29
[2016-05-01 08:32] LABS: Magnesium 1.6 mg/dL (1.6-2.6); Phosphorus 3.1 mg/dL (2.5-4.9)
[2016-05-01] MEDS: Dabigatran 150 mg Capsule PO SCH ×2 (09:08→21:24)
[2016-05-01] MEDS: Isosorbide Mononitrate 30 mg ER24 Tablet PO SCH (09:08)
--- NOTE | 2016-05-01 10:00 | NUR ---
BP/MD NOTIFICATION SBP-80's. Patient denies lightheadedness, chest pain/SOB. Patient just stated that he feels tired. K-3.2. Dr. Piper was made aware. New orders for meds received. Will continue to monitor.
[2016-05-01] MEDS ORDERED: 0.9% Sodium Chloride 250 ML ONE (10:08)
[2016-05-01] MEDS ORDERED: Potassium Chloride 20 mEq/15 mL 15mL Oral Soln PO ONE (10:10)
--- NOTE | 2016-05-01 10:30 | NUR ---
MD NOTIFICATION During rounding I heard the patient groaning. Patient was sitting in the chair. Upon assessment patient was noted to be non-responsive. Vomiting. Scant blood noted with his emesis. Upon assessing his mouth patient was noted to have bitten his tongue. BUE/BLE is flaccid. No fecal incontinence. IFC is intact and draining to chrissie colored UO. Episode lasted for approximately 3-5 mins. Per patient he had a seizure in the hospital in the past but cannot remember exactly when. (HX: Seizures per EMAR) Pls. refer to vitals grid for vital signs. Patient then regained consciousness after this and stated that he did not know what happened but said that his mouth feels sore and that he has a bitter taste in his mouth attributing it to the medications that he had earlier this morning. Patient is alert and oriented X 4. Answers questions appropriately but has some forgetfulness. Moves all extremities. Equal BUE/BLE strength. No facial drooping noted. Dr. Piper notified. New orders received. Seizure pads in place at this time. Will continue to monitor.
[2016-05-01] MEDS ORDERED: levETIRAcetam Inj 1,000 MG in IV Premix 1 EACH IV ONE (10:50)
--- NOTE | 2016-05-01 11:21 | PCM.PNMED ---
Subjective Date of Service May 01, 2016 Subjective Staff witnessed seizure activity around 10:30, pt was sitting on the chair, lost consciousness, eyes rolled back, tongue biting , no fecal incontinence, pt is on stoner cath, unable to identify urinary incontinence. no tonic-clonic activity, rather flacid, episodes reportedly lasted ?5min, resolved spontaneously, pt was seen after the episodes, seems at baseline MS, AAOx3, doesn't remember what happened, little bit tangent when answering questions, inappropriately laughed. he thinks that he had seizure, also reported that he had seizure last time when he came to hospital(not documented) pt denied focal weakness, MATHIAS, dizziness, plan to load with keppra, EEG, stopped two abx which could potentially lowered seizure threshold will cancel d/c Exam Vital Signs Vital Sign - Last Date Time Temp Pulse Resp B/P Pulse Ox O2 Delivery O2 Flow Rate FiO2 05/01/16 10:25 89 16 100/49 05/01/16 10:05 94 Room Air 05/01/16 10:00 36.6 04/29/16 11:01 1.00 Intake and Output 04/30/16 04/30/16 05/01/16 Cumulative From/Thru 15:00 23:00 07:00 04/25/16 18:20 - 05/01/16 05:00 Intake Total 1000 ml 600 ml 9360 ml Output Total 500 ml 2200 ml 56519 ml Balance 500 ml -1600 ml -1890 ml Intake Oral 1000 ml 600 ml 8360 ml IV Total 1000 ml Output Urine Total 500 ml 2200 ml 37867 ml # Bowel Movements 0 5 Exam NAD, comfortably laying down on the bed no JVD, MMM, no LAD RRR, nl s1, s2 no mrg CTAB, no w,c S,ND,NT,normoactive BS+ warm, no edema, pulses 2/2 Neuro:speech coherent, fluent, AAOx3 PERRLA, EOMI, CN2-12 grossly intact. IVs and Medications Medications Reviewed: Medications were reviewed in detail Lab and Diagnostics Result Diagram: 05/01/1616 05/01/16 0716 X-Rays, CTs and MRIs CT KUB: A source of hematuria is not found. A Stoner catheter fully empties the bladder lumen. No urinary tract stone is found. Stable appearance of renal cortical cysts with reference to the prior study from 04/21/16. Bilateral lung bases clear ictated by: Vasile Garcia M.D. on 04/25/2016 at 21:30 CXR -Resolving atelectasis versus aspiration or pneumonia. Dictated by: Reggie Correa RRA Interpreted: Pedro Pablo Cervantes MD on 04/26/2016 at 9:31 Assessment & Plan A 75 yo male readmitted the same 04/25 day he was discharged for what he is telling us [id number]-iqu penile pain and hematuria which was not noted the entire time he was in the hospital... Patient is an unreliable historian. Apparently there was bright red blood coming from the penile meatus and there is again today 04/26 interior source this looks like trauma to the urethra and the patient is on Pradaxa/aspirin there are no clots in the urine is flowing freely. 04/26 Urology is being consulted to reassure SNF on time of discharge. This is not alarming unless there is blockage of urine and remainder follow-up can be done as outpatient if needed. 04/27 unfortunately patient to restless evening and then daily she usual evening Seroquel 25 mg and there was a sitter placed and the patient received Haldol. Ordering Seroquel for this evening and hopefully Aceta will not be required and he will be dischargeable 04/28. 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 had witnessed seizure episode on 12 AM, it's possible pt had initial seizure episode to begin with given possible seizure focus with structural dz. -load with keppra 1g, follow 500mg bid -STAT CTH given pt is on AC despite non-focal neurologically -EEG ordered -consider neuro consult tomorrow -ativan 4mg prn for breakthrough seizure. -neurocheck q2h, -avoid any potential medicine thickened lowers seizure threshold, stopped Flagyl , cefuroxime(DAY13 today) -avoid other sedatives # Penile bleeding, Present on admission,due to urethral tear, h/h stable -per , keep stoner for now, follow OP with resolved, stable #Hypokalemia-replace and follow. #Leukocytosis- uncertain source does not appear to be acute infection probably stress reaction, WBC 17.3 04/26, 13.6 04/27 #A. fib with RVR-by telemetry as patient was not getting his usual medications. Resume these 04/26 no issues 04/27 discontinuing telemetry 04/27 HR 69-117 04/27 #Acute/chronic encephalopathy-resume prior medications patient pulled out his own catheter due to confusion from multiple moves 04/25 hopefully we can discontinue this today gets a good day out of restraints and can go back to [facility] tomorrow 04/27. #HTN-uncontrolled on admit patient was not getting his usual medications we are resuming these 04/26 BP 126/65-145/64 04/27 # Healthcare acquired pneumonia, present on admission. Active- CT scan shows clear lung bases 04/25, resuming treatment by mouth patient is not hypoxemic or symptomatic. Resume cefuroxime/Flagyl 04/27- 05/01ish # Recent hx of CVA's, present on admission- Will continue outpatient medications Aspirin and Pradaxa Other chronic problems # Atrial fibrillation -Continue medication metoprolol tartrate 100 mg by mouth twice a day -Continue medication isosorbide 30 mg by mouth daily -Continue home medication Pradaxa 150 mg by mouth twice a day, and aspirin 81 mg , # Coronary artery disease with prior NSTEMI- -Continue atorvastatin 40 mg by mouth daily at bedtime #Hyperlipidemia,- Atorvastatin #Hypertension- none of these were resumed on admission I am resuming them today 04/26 -Continue amlodipine 5 mg by mouth twice a day, -Continue metoprolol tartrate 100 mg by mouth twice a day -Continue lisinopril 40 mg by mouth twice a day Hydrochlorothiazide 25 mg by mouth twice a day #Dementia- Takes home medication quetiapine 25 mg daily at bedtime PRNs - Acetaminophen as needed for mild pain/fever/headache - Bowel regimen as needed - Antiemetic as needed GI Prophylaxis: not indicated VTE Prophylaxis: on Pradaxa Resuscitation Status: DNR/DNI - patient's would states this is what patient expressed when last asked, she would like this to be confirmed with patient once patient is coherent dispo: pt was about to be d/tyrese today to home( appealing for SNF), d/c delayed given witnessed seizure episode, likely in 2-3more days if pt remains seizure free, continue daily PT VTE Mechanical Devices: Intermittant Pneumatic CD Resuscitation Status: DNR/DNI:Do Not Resuscitate/Intubate Time spent 35min New Piper MD May 01, 2016 11:21
--- NOTE | 2016-05-01 11:44 | DRSVH ---
PROCEDURE: CT BRAIN WITHOUT CONTRAST ([id number]) INDICATIONS: new onset seizure TECHNIQUE: Noncontrast 4.5 mm thick angled axial sections acquired from the foramen magnum to the vertex, with c oronal reformats. COMPARISON: [facility], CT, CT BRAIN WO CON, 04/21/2016, 2:07. FINDINGS: Image quality: Excellent. CSF spaces: Basal cisterns are patent. No extra-axial fluid collections. The ventricles are symmet lexie in size and shape. Brain: No intracranial bleeds or masses. There is cerebral volume loss for age, with resultant vent ricular and sulcal prominence. There are periventricular and deep white matter chronic small vessel ischemic changes. There is intracranial internal carotid artery atherosclerosis. Skull and face: Calvarium and visualized facial bones appear intact, without suspicious lesions. Sinuses: Visualized sinuses clear. Minimal opacification of the left mastoid air cells as before. IMPRESSION: No acute intracranial process. Dictated by: Ramses Bravo M.D. on 05/01/2016 at 11:43 Approved by: Ramses Bravo M.D. on 05/01/2016 at 11:44
--- NOTE | 2016-05-01 15:04 | NUR ---
Social Work- Continued Discharge Planning Data- Pt is on day 5 of hospitalization for combative, confused per H&P. Pt is no longer medically stable, anticipate 1-2 more days. SW followed up with outside the room. At this time, [facility] has denied pt SNF placement. has appealed the denial. Paperwork is in chart. is awaiting decision from [facility]. Reinforced that should pt be discharged at this time he would either go home with , private pay SNF [facility]. SW has done FLOR with and she is aware of appeal rights. SW will continue to follow. Assessment: Pt who would benefit from SNF. Plan: Pt will either discharge home with HH vs. private pay SNF [facility]. [facility] has denied SNF. has filed appeal. Paperwork in chart. SW will continue to follow VICKY Daniel
--- NOTE | 2016-05-01 18:05 | NUR ---
NEURO/ACTIVITY Patient continues to be alert and oriented X 4. Denies pain. Tolerating liquids PO and his diet well. Denies nausea. No emesis noted at this time. Denies SOB. Patient was able to get OOB to the chair with SBA and the FWW. Tolerated activity. IFC intact and draining to yellow colored UO. Yusuf alarm is on. EEG in the morning.
[2016-05-02 05:32] LABS: BASOPHILS % (AUTO) 1.4 % (0-3); MONOCYTES % (AUTO) 13.6 % (4-12); Mean Corpuscular Hemoglobin 28.5 pg (27.0-35.0); Mean Corpuscular Volume 87.4 fL (81-100); NEUTROPHILS % (AUTO) 66.2 % (40-74); Platelet Count 478 bil/L (150-400)
[2016-05-02 05:58] LABS: Magnesium 1.7 mg/dL (1.6-2.6); Phosphorus 3.1 mg/dL (2.5-4.9)
[2016-05-02] MEDS ORDERED: Potassium Chloride 20 mEq SR Tablet PO ONE (06:50)
--- NOTE | 2016-05-02 07:32 | NUR ---
Rest Patient slept most of shift. Some confusion when trying to wake patient for medications. Patient ambulated from bed to bathroom and back to chair in room. Tolerated well, but remained sleepy most of shift. Luther patent and draining.
--- NOTE | 2016-05-02 08:47 | NUR ---
FLOR: Patient is unable to accept FLOR, is consistently here and TAMALE MAKER is going to follow up with her regarding FLOR.
[2016-05-02 08:53] VITALS: BP 115/75; PULSE 86; RESP 16; O2SAT 92
--- NOTE | 2016-05-02 09:00 | NUR ---
FLOR signed. VICKY Adames
[2016-05-02 10:32] VITALS: BP 115/71; PULSE 89
[2016-05-02] MEDS: Isosorbide Mononitrate 30 mg ER24 Tablet PO SCH (10:33)
[2016-05-02] MEDS: Dabigatran 150 mg Capsule PO SCH ×2 (10:33→20:41)
--- NOTE | 2016-05-02 11:13 | PCM.PNMED ---
Subjective Date of Service May 02, 2016 Subjective No further episodes of seizure. Patient alert and oriented 3. Hematuria clearing. Exam Vital Signs Vital Sign - Last Date Time Temp Pulse Resp B/P Pulse Ox O2 Delivery O2 Flow Rate FiO2 05/02/16 10:32 89 115/71 05/02/16 08:53 36.3 16 92 Room Air 04/29/16 11:01 1.00 Intake and Output 05/01/16 05/01/16 05/02/16 Cumulative From/Thru 15:00 23:00 07:00 04/25/16 18:20 - 05/02/16 06:02 Intake Total 800 ml 100 ml 70341 ml Output Total 850 ml 300 ml 73817 ml Balance -50 ml -200 ml -2140 ml Intake Oral 800 ml 100 ml 9260 ml IV Total 1000 ml Output Urine Total 850 ml 300 ml 76989 ml # Bowel Movements 1 1 7 Exam NAD, comfortably laying down on the bed no JVD, MMM, no LAD RRR, nl s1, s2 no mrg CTAB, no w,c S,ND,NT,normoactive BS+ warm, no edema, pulses 2/ Neuro:speech coherent, fluent, AAOx3 PERRLA, EOMI, CN2-12 grossly intact. No motor or sensory deficit noted IVs and Medications Medications Reviewed: Medications were reviewed in detail Lab and Diagnostics Result Diagram: 05/02/16 0500 05/02/16 0500 X-Rays, CTs and MRIs CT KUB: A source of hematuria is not found. A Stoner catheter fully empties the bladder lumen. No urinary tract stone is found. Stable appearance of renal cortical cysts with reference to the prior study from 04/21/16. Bilateral lung bases clear ictated by: Vasile Garcia M.D. on 04/25/2016 at 21:30 CXR -Resolving atelectasis versus aspiration or pneumonia. Dictated by: Reggie Correa RRA Interpreted: Pedro Pablo Cervantes MD on 04/26/2016 at 9:31 PROCEDURE: CT BRAIN WITHOUT CONTRAST ([id number]) INDICATIONS: new onset seizure IMPRESSION: No acute intracranial process. Dictated by: Ramses Bravo M.D. on 05/01/2016 at 11:43 Assessment & Plan A 75 yo male readmitted the same 2 day he was discharged for hematuria due to traumatic urethral injury when he tried to remove the Stoner while baloon is inflated. the patient is on Pradaxa/aspirin there are no clots in the urine is flowing freely. # An episode of witnessed seizure on 05/01 -probably due to CVA -Started on Keppra 500 mg by mouth twice a day -CT brain 05/01. No acute process - will order MRI of brain and EEG -ativan 4mg prn for breakthrough seizure. 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 - Stable, mental status at baseline now -He had acute confusion requiring a sitter on 04/27-04/28 #Hematuria due to traumatic urethral injury when he tried to remove the Stoner while baloon is inflated, Present on admission, h/h stable -per , keep stoner for now, follow OP with -Hematuria clearing now resolved, stable #Hypokalemia-replace and follow. #Leukocytosis- uncertain source does not appear to be acute infection probably stress reaction, WBC 17.3 04/26, 13.6 04/27 #A. fib with RVR-by telemetry as patient was not getting his usual medications. Resume these 04/26 no issues 04/27 discontinuing telemetry 04/27 HR 69-117 04/27 #Acute/chronic encephalopathy-resume prior medications patient pulled out his own catheter due to confusion from multiple moves 04/25 hopefully we can discontinue this today gets a good day out of restraints and can go back to [facility] tomorrow 04/27. #HTN-uncontrolled on admit patient was not getting his usual medications we are resuming these 04/26 BP 126/65-145/64 04/27 # Healthcare acquired pneumonia, present on admission. Active- CT scan shows clear lung bases 04/25, resuming treatment by mouth patient is not hypoxemic or symptomatic. Initially treated with cefuroxime/Flagyl 04/27- 05/01 # Recent hx of CVA's, present on admission- Will continue outpatient medications Aspirin and Pradaxa Other chronic problems # Atrial fibrillation -Continue medication metoprolol tartrate 100 mg by mouth twice a day -Continue medication isosorbide 30 mg by mouth daily -Continue home medication Pradaxa 150 mg by mouth twice a day, and aspirin 81 mg , # Coronary artery disease with prior NSTEMI- -Continue atorvastatin 40 mg by mouth daily at bedtime #Hyperlipidemia,- Atorvastatin #Hypertension- none of these were resumed on admission I am resuming them today 04/26 -Continue amlodipine 5 mg by mouth twice a day, -Continue metoprolol tartrate 100 mg by mouth twice a day -Continue lisinopril 40 mg by mouth twice a day Hydrochlorothiazide 25 mg by mouth twice a day #Dementia- Takes home medication quetiapine 25 mg daily at bedtime PRNs - Acetaminophen as needed for mild pain/fever/headache - Bowel regimen as needed - Antiemetic as needed GI Prophylaxis: not indicated VTE Prophylaxis: on Pradaxa Resuscitation Status: DNR/DNI - patient's would states this is what patient expressed when last asked, she would like this to be confirmed with patient once patient is coherent dispo: pt was about to be d/tyrese on 05/01 to home( appealing for SNF), d/c delayed given witnessed seizure episode on 05/01,undergoing workup of etiology of seizure , likely in1-2 more days if pt remains seizure free, continue daily PT VTE Mechanical Devices: Intermittant Pneumatic CD Resuscitation Status: DNR/DNI:Do Not Resuscitate/Intubate Jitendra Green MD May 02, 2016 11:13
[2016-05-02] MEDS: levETIRAcetam 500 mg Tablet PO SCH ×2 (11:49→20:42)
--- NOTE | 2016-05-02 12:19 | NUR ---
NEURO/ACTIVITY Patient is alert and oriented X 4. Forgetful but is answering questions appropriately. Patient is usually A/O during the day and seems to have increased confusion during the night. BUE/BLE is equal in strength. No facial drooping noted. Patient denies pain. Tolerating liquids PO and his diet well. Denies nausea. No emesis noted. Denies SOB. Patient was able to ambulate in the hallway X 1 with SBA and a FWW. Tolerated activity well. IFC intact and draining to chrissie colored UO. Cath care rendered. Yusuf alarm is on for safety. Patients is at the bedside.
--- NOTE | 2016-05-02 13:56 | NUR ---
Social Work-continued d/c planning: Data:EMR Reviewed. Pt is on day 6 of hospitalization for confused per H&P. MD anticipates in the next couple days for discharge. PT continues to recommend SNF, but pt ambulating 450 ft. [facility] has denied SNF placement and has submitted appeal. SW followed up with at bedside, SW role explained. SW again explained that once discharge orders are in can chose to take pt home with HH, pay privately at [facility]. had questions about HH which were answered. SW offered to make referral and not wanting this at this time. Paperwork in the chart. SW will continue to follow. Assessment:Pt who is independent at baseline. Plan:Pt to discharge home with HH vs [facility] can accept private pay when medically stable. Paperwork in the chart. SW will continue to follow. VICKY Adames
--- NOTE | 2016-05-02 14:14 | NUR ---
Pt D/C from PT. Amb full loop w/nsg this AM. Rec d/c home w/10/10 care d/t cognitive issues
[2016-05-02 14:43] VITALS: BP 118/76; PULSE 88; RESP 18; O2SAT 94
--- NOTE | 2016-05-02 16:10 | DRSVH ---
PROCEDURE: MRI BRAIN WITHOUT CONTRAST ([id number]) INDICATIONS: seizure disorder ,new onset TECHNIQUE: Non-contrast axial T1 spin echo, axial T2 fast spin echo, sagittal and axial FLAIR, coronal T2 fast s pin echo, axial gradient echo, axial diffusion and ADC through the brain. COMPARISON: [facility], CT, CT BRAIN WO CON, 05/01/2016, 11:11. FINDINGS: Image quality: Excellent. CSF spaces: Ventricles appear symmetric in size and shape. Basal cisterns are patent. No extra-axi al fluid collections. Brain: No acute intracranial bleeds or mass effects. There is a small region of low gradient echo si gnal intensity within the left mid centrum semiovale. There is cerebral volume loss for age. There a re periventricular and deep white matter chronic small vessel ischemic changes. Brainstem appears no rmal. Diffusion-weighted images demonstrate 2 adjacent regions of elevated signal intensity within t he left mid and posterior centrum semiovale, which demonstrate low ADC map signal, and moderate FLAIR signal elevation. No chronic ischemic insults. Normal intravascular flow voids are present. Skull and face: Calvarial bone marrow is normal in signal. Orbits are normal. Sinuses: Sinuses and mastoids are clear. IMPRESSION: 1. There are 2 adjacent subacute infarcts within the left centrum semiovale. 2. Findings consistent with a small cavernous hemangioma within the left centrum semiovale. 3. Volume loss and small vessel ischemic disease. Dictated by: Sirena Javier M.D. on 05/02/2016 at 16:05 Approved by: Sirena Javier M.D. on 05/02/2016 at 16:08
[2016-05-02 19:40] VITALS: BP 119/70; PULSE 75; RESP 16; O2SAT 97
[2016-05-03 06:11] VITALS: BP 129/74; PULSE 70; RESP 16; O2SAT 96
[2016-05-03 07:42] LABS: BASOPHILS % (AUTO) 2.4 % (0-3); MONOCYTES % (AUTO) 15.2 % (4-12); Mean Corpuscular Hemoglobin 28.9 pg (27.0-35.0); Mean Corpuscular Volume 87.8 fL (81-100); NEUTROPHILS % (AUTO) 59.8 % (40-74); Platelet Count 419 bil/L (150-400)
--- NOTE | 2016-05-03 08:13 | NUR ---
Medication Patient requested medications be taken with pudding.Patient has some confusion when woken up. Ambulating well with FWW from bed to bathroom, standby assist. Patient slept most of night.
[2016-05-03] MEDS ORDERED: Lisinopril 40 Tablet PO SCH (08:30)
[2016-05-03] MEDS: Isosorbide Mononitrate 30 mg ER24 Tablet PO SCH (10:27)
[2016-05-03] MEDS: Dabigatran 150 mg Capsule PO SCH (10:27)
[2016-05-03] MEDS: levETIRAcetam 500 mg Tablet PO SCH (10:27)
--- NOTE | 2016-05-03 12:15 | PCM.DIMED ---
Discharge Instructions Date of Service May 03, 2016 Dates of Hospitalization Apr 26, 2016 at 00:44 Discharge Diagnosis Discharge Diagnosis #Hematuria due to uretheral damage due to traumatic stoner catherter removal by patient while balloon inflated #seizure disorder due to acute/subacute stroke #acute/subacute stroke #HCAP # KIA Medication Instructions please continue taking Keprra 500mg by mouth twice a day. Test Results MRI 05/02/16 IMPRESSION: 1. There are 2 adjacent subacute infarcts within the left centrum semiovale. 2. Findings consistent with a small cavernous hemangioma within the left centrum semiovale. 3. Volume loss and small vessel ischemic disease. Diet No restrictions Activity Limited until seen by PCP, Home Health Phyical Therapy Call your provider Fever or Chills, Shortness of breath, Bleeding, Chest pain, Vomitting, Excessive diarrhea, Weakness (unilateral) Patient Instructions You were hospitalized with bloody urine and pneumonia.You also had an episode of seizure on 05/01/16. workup with MRI revealed you had acute/subacute stroke. You are started on seizure medication Keppra 500 mg by mouth twice a day. Please continue taking aspirin, atorvastatin, Pradaxa. Please note that you should keep urine catheter until you see Urologist. Follow-up plan Please follow up with in following week. Follow-up Provider: Marilyn Vega MD Follow-up with PCP in: 1 week Provider: Henry Jose DO Follow-up in: 2 weeks Jitendra Green MD May 03, 2016 12:15
[2016-05-03] MEDS ORDERED: KEP500TA PO (12:25)
--- NOTE | 2016-05-03 13:17 | NUR ---
Called and left message for Nusrat Gannon regarding approval from appealed SNF denial. Updated BACK TENDER CYLINDER Addendum: 05/03/16 at 1332 by NORBERT JEAN-BAPTISTE CM Spoke with Nusrat Gannon and appealed has been overturned. Patient can transfer to SNF when ready. Updated BACK TENDER CYLINDER Addendum: 05/03/16 at 1344 by NORBERT JEAN-BAPTISTE CM Faxed orders to [facility] and updated [facility] on discharge
--- NOTE | 2016-05-03 13:37 | NUR ---
Social Work-readiness for discharge: Data:EMR reviewed. Pt is on day 7 of hospitalization for confusion per H&P. SW updated by Pt's that [facility] came back and did overturn decision and they have approved SNF. SW asked UR specialist to call and see if this information is true. SW will continue to follow. Assessment:Pt who would benefit. Plan:Pt to discharge home with HH vs [facility]. UR specialist to call to determine appeal decision. SW will continue to follow. VICKY Adames
--- NOTE | 2016-05-03 13:45 | NUR ---
Social Work-discharge: Data:EMR reviewed. Pt is on day 7 of hospitalization for confused per H&P. Pt is medically stable for discharge. UR specialist did confirm with that the appeal did come back in favor of the pt and they have approved SNF stay at [facility]. YANETH updated [facility] at [facility] and she confirms they can accept the pt. Mere arranged transport for 1430. UR specialist faxed orders and created packet. YANETH updated pt and and RN. RN,UC,pt/family, and [facility] all updated and agreeable to plan. Assessment:Pt who would benefit from SNF. Plan:Pt to discharge to [facility] today via [facility] at 1430. appeal decision has come back in favor of the and they have approved SNF. RN,UC,pt/family, and [facility] all updated and agreeable to plan. VICKY Adames
--- NOTE | 2016-05-03 14:36 | PCM.DC.MED ---
Discharge Summary Date of Service May 03, 2016 Dates of Hospitalization Date of Hospital Admission Apr 26, 2016 at 00:44 Date of Discharge: May 03, 2016 Providers: Admitting Physician: Lelia Lyon DO Primary Care Physician: eHnry Jose DO Attending Physician: Lelia Lyon DO Diagnosis at Time of Discharge Diagnosis at Time of Discharge #Hematuria due to uretheral damage due to traumatic stoner catherter removal by patient while balloon inflated #seizure disorder due to acute/subacute stroke #acute/subacute stroke #HCAP # [facility] Consultations Urology Dr Vega Procedures XRay, CTs & MRIs CT KUB: A source of hematuria is not found. A Stoner catheter fully empties the bladder lumen. No urinary tract stone is found. Stable appearance of renal cortical cysts with reference to the prior study from 04/21/16. Bilateral lung bases clear ictated by: Vasile Garcia M.D. on 04/25/2016 at 21:30 CXR -Resolving atelectasis versus aspiration or pneumonia. Dictated by: Reggie Correa RRA Interpreted: Pedro Pablo Cervantes MD on 04/26/2016 at 9:31 PROCEDURE: CT BRAIN WITHOUT CONTRAST ([id number]) INDICATIONS: new onset seizure IMPRESSION: No acute intracranial process. Dictated by: Ramses Bravo M.D. on 05/01/2016 at 11:43 PROCEDURE: MRI BRAIN WITHOUT CONTRAST ([id number]) INDICATIONS: seizure disorder ,new onset TECHNIQUE: Non-contrast axial T1 spin echo, axial T2 fast spin echo, sagittal and axial FLAIR, coronal T2 fast spin echo, axial gradient echo, axial diffusion and ADC through the brain. COMPARISON: [facility], CT, CT BRAIN WO CON, 05/01/2016, 11:11. FINDINGS: Image quality: Excellent. CSF spaces: Ventricles appear symmetric in size and shape. Basal cisterns are patent. No extra-axial fluid collections. Brain: No acute intracranial bleeds or mass effects. There is a small region of low gradient echo signal intensity within the left mid centrum semiovale. There is cerebral volume loss for age. There are periventricular and deep white matter chronic small vessel ischemic changes. Brainstem appears normal. Diffusion-weighted images demonstrate 2 adjacent regions of elevated signal intensity within the left mid and posterior centrum semiovale, which demonstrate low ADC map signal, and moderate FLAIR signal elevation. No chronic ischemic insults. Normal intravascular flow voids are present. Skull and face: Calvarial bone marrow is normal in signal. Orbits are normal. Sinuses: Sinuses and mastoids are clear. IMPRESSION: 1. There are 2 adjacent subacute infarcts within the left centrum semiovale. 2. Findings consistent with a small cavernous hemangioma within the left centrum semiovale. 3. Volume loss and small vessel ischemic disease. Dictated by: Sirena Javier M.D. on 05/02/2016 at 16:05 Brief History as per HPI performed by dr Lyon on 04/26/16 A 75 year old male with a medical history including stroke, encephalopathy due to multiple recent CVAs on 04/12/16, CAD with hx of prior NSTEMI, HTN, and A-fib (Aspirin 81mg and Pradaxa), presents to the ED via EMS from [facility] with penile bleeding associated pain onset approximately a week ago. He had a Stoner catheter removed two days ago at [facility] with some penile bleeding reported at that time. The patient was discharged from the the hospital yesterday after a three day hospitalization for sepsis (with blood cx at that time that returned negative), acute hypoxic respiratory failure likely secondary to a diagnosis of HCAP and was discharge on cefepime/Flagyl, and syncope deemed likely secondary to hypotension. In the ED today patient had bleeding from the penile urethra. Patient had Stoner catheter placed and balloon inflated resulting in clear urine flowing from Stoner. Stoner was secured and patient was stable and ready to discharge back to SNF. Patient then pulled inflated catheter out of his penis while staff was not present. When staff reentered the room patient was sitting on the floor in a pool of blood. Stoner catheter was replaced and reinflated with resulting tamponade of penile hemorrhage. Patient again started to reach for Stoner catheter in attempt to remove it on his own. Patient was placed in soft restraints and sedated with Haldol. At time of exam patient was sedated and unable to respond to clinical questioning. Vital signs in ED: Temperature 36.5, pulse 82, blood pressure 145/77, respiratory rate 18, pulse ox 97% on 2 L. Hemogram: White blood cells 17.7, hemoglobin 12.3, hematocrit 36.6, platelets 405, Chemistry panel: Calcium 8.2 otherwise normal PT/INR 16.8/1.56 UA significant for gross hematuria, 6-10 WBCs, CT KUB showed no source of hematuria found, stones, stable appearance of renal cortical cysts. Hospital Course A 75 yo male readmitted the same 04/25 day he was discharged for hematuria due to traumatic urethral injury when he tried to remove the Stoner while baloon is inflated. the patient is on Pradaxa/aspirin there are no clots in the urine is flowing freely. # An episode of witnessed seizure on 05/01 - due to CVA -Started on Keppra 500 mg by mouth twice a day -CT brain 05/01. No acute process - MRI of brain cocsistent with subacute CVA. 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 - Stable, mental status at baseline now -He had acute confusion requiring a sitter on 04/27-04/28 -continue ASA<statin and Pradaxa #Hematuria due to traumatic urethral injury when he tried to remove the Stoner while balloon is inflated, Present on admission, h/h stable -per , keep stoner for now, follow OP with -Hematuria clearing now resolved, stable #Hypokalemia-resolved #Leukocytosis,resolved - uncertain source does not appear to be acute infection probably stress reaction, WBC 17.3 04/26, 13.6 04/27 #A. fib with RVR-by telemetry as patient was not getting his usual medications.rate controlled now,continue Pradaxa #HTN-uncontrolled on admit patient was not getting his usual medications we are resuming these 04/26 BP 126/65-145/64 04/27 # Healthcare acquired pneumonia, present on admission. resolved - CT scan shows clear lung bases 04/25, resuming treatment by mouth patient is not hypoxemic or symptomatic. Initially treated with cefuroxime/Flagyl 04/27- 05/01 # Recent hx of CVA's, present on admission- Will continue outpatient medications Aspirin and Pradaxa Other chronic problems # Atrial fibrillation -Continue medication metoprolol tartrate 100 mg by mouth twice a day -Continue medication isosorbide 30 mg by mouth daily -Continue home medication Pradaxa 150 mg by mouth twice a day, and aspirin 81 mg , # Coronary artery disease with prior NSTEMI- -Continue atorvastatin 40 mg by mouth daily at bedtime #Hyperlipidemia,- Atorvastatin #Hypertension- none of these were resumed on admission I am resuming them today 04/26 -Continue amlodipine 5 mg by mouth twice a day, -Continue metoprolol tartrate 100 mg by mouth twice a day -Continue lisinopril 40 mg by mouth twice a day Hydrochlorothiazide 25 mg by mouth a day #Dementia- Takes home medication quetiapine 25 mg daily at bedtime PRNs - Acetaminophen as needed for mild pain/fever/headache - Bowel regimen as needed - Antiemetic as needed GI Prophylaxis: not indicated VTE Prophylaxis: on Pradaxa Resuscitation Status: DNR/DNI - patient's would states this is what patient expressed when last asked, she would like this to be confirmed with patient once patient is coherent disposition : discharge to [facility] for rehab follow up with Dr Singh at [facility] and with PCP 1-2 weeks post SNF discharge Exam Vital Signs (Last) Date Time Temp Pulse Resp B/P Pulse Ox O2 Delivery O2 Flow Rate FiO2 05/03/16 06:11 36.6 70 16 129/74 96 Room Air 04/29/16 11:01 1.00 Exam NAD, comfortably laying down on the bed no JVD, MMM, no LAD RRR, nl s1, s2 no mrg CTAB, no w,c S,ND,NT,normoactive BS+ warm, no edema, pulses 2/2 Neuro:speech coherent, fluent, AAOx3 PERRLA, EOMI, CN2-12 grossly intact. No motor or sensory deficit noted Test 04/25/16 20:10 04/26/16 01:08 04/26/16 04:50 04/27/16 14:31 Prothrombin Time 16.8sec (8.1-12.5) Prothromb Time International Ratio 1.56ratio Hold Proctor Top Tube Received (Received) Troponin T 0.010ug/L (0.0-0.011) Lactic Acid Level 0.9mmol/L (0.4-2.0) Urine Color Yellow (YELLOW) Urine Appearance Hazy (CLEAR,HAZY) Urine pH 6.0 (5.0-8.0) Urine Specific [place] 1.020 (1.003-1.035) Urine Protein 30mg/dL (NEG,TRACE) Urine Glucose (UA) Negativemg/dL (NEGATIVE) Urine Ketones Tracemg/dL (NEGATIVE) Urine Occult Blood Large (NEGATIVE) Urine Nitrite Negative (NEGATIVE) Urine Bilirubin Negative (NEGATIVE) Urine Urobilinogen Normalmg/dL (NORMAL) Urine Leukocyte Esterase Small (NEGATIVE) Urine RBC >50/hpf (0-2) Urine WBC 6-10/hpf (0-5) Urine Epithelial Cells Occasional/hpf (NONE-MOD) Urine Crystals None seen (NONE SEEN) Urine Bacteria Moderate/hpf (NONE-FEW) Urine Hyaline Casts Occasional/lpf (NONE) Urine Granular Casts None seen (NONE SEEN) Urine Waxy Casts None seen (NONE SEEN) Urine Red Blood Cell Casts None seen (NONE SEEN) Urine White Blood Cell Casts None seen (NONE SEEN) Urine Mucus Present (None Seen) Urine Trichomonas None seen (NONE SEEN) Urine Yeast None (NONE SEEN) Urinalysis Comment None Urine Culture Reflexed Indicated Test 04/29/16 05:04 05/02/16 05:00 05/03/16 07:33 Band Neutrophils % 0% (1-5) Metamyelocytes % 0% (0-0) Myelocytes % 0% (0-0) Promyelocytes % 0% (0-0) Blast Cells % 0% (0-0) Nucleated Red Blood Cells 0/100 WBC (0-24) Procalcitonin 0.07ng/mL (0.00-0.08) Phosphorus Level 3.1mg/dL (2.5-4.9) Magnesium Level 1.7mg/dL (1.6-2.6) Total Creatine Kinase 21U/L (21-232) Thyroid Stimulating Hormone (TSH) 1.310uIU/mL (0.450-4.500) Free Thyroxine 1.60ng/dL (0.82-1.77) White Blood Count 9.4th/mm3 (3.8-10.1) Red Blood Count 4.26mil/mm3 (4.40-5.80) Hemoglobin 12.3g/dL (13.8-17.2) Hematocrit 37.4% (41.0-50.0) Mean Corpuscular Volume 87.8fL (81-100) Mean Corpuscular Hemoglobin 28.9pg (27.0-35.0) Mean Corpuscular Hemoglobin Concent 32.9% (32.0-37.0) Red Cell Distribution Width 12.9% (12.3-15.4) Platelet Count 419bil/L (150-400) Neutrophils (%) (Auto) 59.8% (40-74) Lymphocytes (%) (Auto) 16.0% (14-46) Monocytes (%) (Auto) 15.2% (4-12) Eosinophils (%) (Auto) 2.0% (0-5) Basophils (%) (Auto) 2.4% (0-3) Sodium Level 142mEq/L (134-144) Potassium Level 3.8mEq/L (3.5-5.2) Chloride Level 102mEq/L (97-108) Carbon Dioxide Level 27mmol/L (18-29) Blood Urea Nitrogen 12mg/dL (8-27) Creatinine 1.32mg/dL (0.76-1.27) Estimat Glomerular Filtration Rate 57mL/min (>59) Glucose Level 92mg/dL (60-99) Calcium Level 8.4mg/dL (8.5-10.1) Total Bilirubin 0.4mg/dL (0.0-1.2) Aspartate Amino Transf (AST/SGOT) 20U/L (0-50) Alanine Aminotransferase (ALT/SGPT) 11U/L (0-44) Alkaline Phosphatase 42U/L (25-160) Total Protein 6.0g/dL (6.4-8.4) Albumin 3.3g/dL (3.4-5.0) Discharge Medications Discharge Medications Amlodipine (Amlodipine) 5 Mg Tablet 5 MG PO BID (Reported) Aspirin (Aspirin) 81 Mg Tablet 81 MG PO DAILY (Reported) Atorvastatin (Lipitor) 20 Mg Tablet 40 MG PO HS Prescribed by: VINCE WHITNEY DO, RESIDENT Dabigatran Etexilate Mesylate (Pradaxa) 150 Mg Capsule 150 MG PO BID (Reported) Hydrochlorothiazide (Hydrochlorothiazide) 25 Mg Tablet 25 MG PO DAILY Prescribed by: VINCE WHITNEY DO, RESIDENT Isosorbide MN ER (Isosorbide MN ER) 30 Mg Tab.er.24h 30 MG PO DAILY (Reported) Levetiracetam (Keppra) 500 Mg Tablet 500 MG PO BID Prescribed by: MAYI ALLEN MD Lisinopril (Lisinopril) 20 Mg Tablet 40 MG PO DAILY (Reported) Metoprolol Tartrate (Metoprolol Tartrate) 100 Mg Tablet 100 MG PO BID (Reported ) Quetiapine Fumarate (Quetiapine Fumarate) 25 Mg Tablet 25 MG PO HS (Reported) As needed Acetaminophen (Acetaminophen) 325 Mg Tablet 650 MG PO Q4H PRN PRN For Pain ( Reported) Polyethylene Glycol 3350 (Miralax) 17 Gm Powd.pack 17 GM PO DAILY PRN PRN For Constipation (Reported) Additional med instructions please continue taking Keprra 500mg by mouth twice a day. Followup Plan Disposition: [facility] Follow-up plan Please follow up with in following week. Discharge Diet: No restrictions Discharge Activity: Limited until seen by PCP, Home Health Phyical Therapy Patient Instructions You were hospitalized with bloody urine and pneumonia.You also had an episode of seizure on 05/01/16. workup with MRI revealed you had acute/subacute stroke. You are started on seizure medication Keppra 500 mg by mouth twice a day. Please continue taking aspirin, atorvastatin, Pradaxa. Please note that you should keep urine catheter until you see Urologist. Follow-up Provider: Marilyn Vega MD Follow-up with PCP in: 1 week Provider: Henry Jose DO Follow-up in: 2 weeks Mid-level Provider: Deedee Singh MD Follow-up with Mid-level in: 1 week Time spent 40 minutes coordinating discharge copies to: Henry Jose DO; Deedee Singh MD, Melaku MD May 03, 2016 14:36
--- NOTE | 2016-05-03 14:49 | NUR ---
Discharge Patient discharged to [facility] for rehab. Patient transported by wheelchair and cabulance. Report called to [facility] Stahl[facility] and I spoke with Delphine admit nurse. Patients took all belongings.
--- NOTE | 2016-05-05 10:18 | PROCED ---
[address] [id number] EEG PATIENT: ZEB BEARD : 1940 MR#: [id number] ADMIT: 04/26/2016 JOB ID: [id number] DATE: 05/02/2016 HISTORY: The patient is a 75-year-old man with altered mental status and reported episodes of loss of consciousness. TECHNICAL DESCRIPTION: This digital EEG was recorded using 25 scalp and ear, and two EKG electrodes. It was reviewed in bipolar and referential montages following reformatting in 10-20 International Electrode Placement System. During the recording, the patient was noted to be awake, drowsy, and asleep. The background was composed of a polymorphic mixture of theta and alpha rhythms, approximately 7-8 hertz, 20-50 microvolts, symmetrical and reactive, posterior dominant rhythm that attenuated with eye opening. The rest of the background was composed of low voltage faster frequencies. There were intermittent generalized runs of triphasic appearing high-amplitude delta waves. No seizures were seen. Hyperventilation was not performed due to lack of cooperation. Photic stimulation from 1-30 hertz did not elicit any photic driving response. The EKG rhythm strip revealed a heart rate of 60-80 beats per minute with occasional premature ventricular complexes. Sleep was characterized by the attenuation of the alpha rhythm and the appearance of symmetrical vertex waves, heralding stage 1 of sleep. This is followed by the development of symmetrical sleep spindles heralding stage 2 of sleep. IMPRESSION: This electroencephalogram performed in the awake, drowsy and asleep states is abnormal. The slow background as well as the intermittent generalized high-amplitude delta slowing in a triphasic fashion is suggestive of mild cerebral cortical dysfunction/encephalopathy. This is a nonspecific finding. It may be seen in a wide variety of different clinical conditions, including toxic, metabolic, hypoxic, inflammatory, autoimmune, and infectious states. It may also be seen in the setting of certain sedative medications. Given the intermittent premature ventricular complexes appreciated on this single lead electrocardiogram, consider a 12 lead electrocardiogram if clinically indicated. Clinical correlation is advised. MTDD
== END 2016-05-03 14:40 | DRG 698 ==
LOC: SED 18:09 → PCC 04-26 00:44 → MPC 04-26 00:44 → UNDOADMIN 04-26 00:44 → OSC 04-26 02:23
PROVIDERS: ADMIT Internal Medicine; ATTEND Internal Medicine
PROC: 4A00X4Z Measurement of Central Nervous Electrical Activity, External Approach (ICD-10-PCS; principal; 2016-05-02)
DX: S37.39XA Other injury of urethra, initial encounter (principal); G93.40 Encephalopathy, unspecified; I69.351 Hemiplegia and hemiparesis following cerebral infarction affecting right dominant side; X58.XXXA Exposure to other specified factors, initial encounter; Y84.6 Urinary catheterization as the cause of abnormal reaction of the patient, or of later complication, without mention of misadventure at the time of the procedure; F03.90 Unspecified dementia, unspecified severity, without behavioral disturbance, psychotic disturbance, mood disturbance, and anxiety; I25.10 Atherosclerotic heart disease of native coronary artery without angina pectoris; Z66 Do not resuscitate; G40.909 Epilepsy, unspecified, not intractable, without status epilepticus; E87.6 Hypokalemia; Z79.82 Long term (current) use of aspirin; I69.320 Aphasia following cerebral infarction; I25.2 Old myocardial infarction; Y99.8 Other external cause status; Y92.009 Unspecified place in unspecified non-institutional (private) residence as the place of occurrence of the external cause

== ENCOUNTER 2016-05-11 09:30 | Observation (INO) | payer MEDICARE ==
[2016-05-11] VITALS (7 sets, daily range): BP systolic 86–111; BP diastolic 54–72; PULSE 62–84; RESP 13–22; O2SAT 92–98
[~2016-05-11] VITALS: Ht 167.6 cm; Wt 83.8 kg
--- NOTE | 2016-05-11 09:29 | ED.REPORT ---
HPI-General Illness Date of Service May 11, 2016 ED Provider: The patient is a 75 year old male with history of encephalopathy, embolic strokes, seizures, atrial fibrillation, coronary artery disease, hypertension, orthostatic hypotension, lightheadedness, hyperlipidemia, who presents to the emergency department by EMS for syncopal episode while he was seated in his wheelchair. The patient was being seen at urology for a catheter problem. When he was at the office prior to the syncopal episode his blood pressure was in the 70s/50s when he was seated in his wheelchair. Based on his chart it appeared that [facility] staff gave him his morning medications regardless of a measured blood pressure in the 90s systolic. He was discharged on the of this month and is currently taking amlodipine 5 mg BID, metoprolol 100 mg daily , lisinopril 40 mg BID, and hydrochlorothiazide 25 mg BID. Additionally he has been prescribed Losartan and Isosorbide, it is unclear whether he is taking these medications as well. He denies chest pain, shortness of breath, dizziness, abdominal pain, nausea or vomiting. Nursing Notes Stated Complaint: SYNCOPE EPISODE Nursing Notes Reviewed: Yes Allergies: Coded Allergies: Penicillins (Verified Allergy, Unknown, 04/20/16) Scheduled Amlodipine (Amlodipine) 5 Mg Tablet 5 MG PO BID Aspirin (Aspirin) 81 Mg Tablet 81 MG PO DAILY Atorvastatin (Lipitor) 20 Mg Tablet 40 MG PO HS Dabigatran Etexilate Mesylate (Pradaxa) 150 Mg Capsule 150 MG PO BID Fluticasone Propionate (Fluticasone Propionate Nasal) 16 Gm Owings.susp 2 SPRAY NS DAILY Hydrochlorothiazide (Hydrochlorothiazide) 12.5 Mg Capsule 12.5 MG PO DAILY Isosorbide MN ER (Isosorbide MN ER) 30 Mg Tab.er.24h 30 MG PO DAILY Levetiracetam (Keppra) 500 Mg Tablet 500 MG PO BID Lisinopril (Lisinopril) 20 Mg Tablet 20 MG PO DAILY Metoprolol Tartrate (Metoprolol Tartrate) 100 Mg Tablet 100 MG PO BID Quetiapine Fumarate (Quetiapine Fumarate) 25 Mg Tablet 25 MG PO HS Scheduled PRN Acetaminophen (Acetaminophen) 325 Mg Tablet 650 MG PO Q4H PRN PRN For Pain Polyethylene Glycol 3350 (Miralax) 17 Gm Powd.pack 17 GM PO DAILY PRN PRN For Constipation General Time Seen by MD: 09:28 Chief Complaint Other (syncope) Hx Obtained From: Patient, Spouse, Supply Service Worker, EMS Arrived By: Ambulance Sudden in Onset?: Yes Onset Occurred: Just prior to arrival Symptom Duration: 1 - 15 minutes Severity: Current: No pain currently Severity: Maximum: No pain Recent Healthcare: Recent doctor visit, Recent hospitalization Similar Sx Previous: No Past Medical History Past Medical History Encephalopathy, 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 Smoking History Unknown if Ever Smoker Social History Lives at [facility] Other Social History: Good social support, , Lives in [facility], Local resident Ambulatory Status Independent Review of Systems Full Review of Systems Respiratory: Denies: Shortness of breath Cardiovascular: Denies: Chest pain GI: Denies: Abdominal pain, Nausea, Vomiting Neurologic: Reports: Change LOC, Lightheaded, Syncope, Denies: Dizziness Complete sys rev & neg: except as marked. Physical Exam Vital Signs Vital Signs Date Time Temp Pulse Resp B/P Pulse Ox O2 Delivery O2 Flow Rate FiO2 05/11/16 09:46 67 13 86/54 92 Room Air 05/11/16 09:30 36.2 79 21 100/60 94 Room Air Initial VS: Reviewed ENT: Mucous membranes moist, Conjunctiva normal, No scleral icterus Neck: Supple, Non-tender, Full range of motion Respiratory: Breath sounds normal, Clear to auscultation, No respiratory distress Cardiovascular: Regular rate & rhythm, Heart sounds normal, Intact distal pulses Abdomen / GI: Soft, Non-tender, No guarding, No rebound, No distention Lymphatic: No lymphadenopathy Extremities: Vascular intact, Neuro intact, No swelling, No tenderness Skin: Warm, Dry, No cyanosis Psychiatric: Mood/affect normal, Behavior normal General/Constitutional: Awake, Cooperative Alertness: Positive: Confused (baseline) Head / Eyes: Atraumatic, Normocephalic, PERRL, EOMI No signs of trauma Male Genitourinary: Atraumatic indwelling stoner catheter with clear yellow urine Mental Status: Positive: Confused Demented. Speaking fluently but confused at baseline. There are no acute lateralizing neurologic deficits. Interpretation & Diagnostics Lab Results Interpretation Result Diagram: 05/11/16 0950 05/11/16 0950 Test 05/11/16 09:50 White Blood Count 8.6th/mm3 (3.8-10.1) Red Blood Count 4.65mil/mm3 (4.40-5.80) Hemoglobin 13.6g/dL (13.8-17.2) Hematocrit 40.3% (41.0-50.0) Mean Corpuscular Volume 86.7fL (81-100) Mean Corpuscular Hemoglobin 29.2pg (27.0-35.0) Mean Corpuscular Hemoglobin Concent 33.7% (32.0-37.0) Red Cell Distribution Width 13.0% (12.3-15.4) Platelet Count 304bil/L (150-400) Neutrophils (%) (Auto) 63.1% (40-74) Lymphocytes (%) (Auto) 17.3% (14-46) Monocytes (%) (Auto) 15.0% (4-12) Eosinophils (%) (Auto) 2.0% (0-5) Basophils (%) (Auto) 1.4% (0-3) Prothrombin Time 16.1sec (8.1-12.5) Prothromb Time International Ratio 1.49ratio Sodium Level 137mEq/L (134-144) Potassium Level 3.2mEq/L (3.5-5.2) Chloride Level 96mEq/L (97-108) Carbon Dioxide Level 26mmol/L (18-29) Blood Urea Nitrogen 21mg/dL (8-27) Creatinine 1.86mg/dL (0.76-1.27) Estimat Glomerular Filtration Rate 38mL/min (>59) Glucose Level 144mg/dL (60-99) Calcium Level 9.0mg/dL (8.5-10.1) Magnesium Level 1.9mg/dL (1.6-2.6) Total Bilirubin 0.5mg/dL (0.0-1.2) Aspartate Amino Transf (AST/SGOT) 25U/L (0-50) Alanine Aminotransferase (ALT/SGPT) 22U/L (0-44) Alkaline Phosphatase 52U/L (25-160) Troponin T 0.010ug/L (0.0-0.011) Pro-B-Type Natriuretic Peptide 1286pg/mL (0-376) Total Protein 7.2g/dL (6.4-8.4) Albumin 3.8g/dL (3.4-5.0) ECG Interpretation ECG Interpretation: Atrial fibrillation with prolonged QT Abnormal R wave progression No ST segment changes Diffuse T wave flattening When compared to previous dated 04/20/2016 T wave flattening is more prominent and the patient remains in atrial fibrillation Time: 09:42 Interpreted by: ED physician Re-Eval/Medical Decision Med Decision/Clinical Course The patient is a 75 year old male with history of encephalopathy, embolic strokes, seizures, atrial fibrillation, coronary artery disease, hypertension, orthostatic hypotension, lightheadedness, hyperlipidemia, who presents to the emergency department by EMS for syncopal episode while he was seated in his wheelchair. The patient was being seen at urology for a catheter problem. When he was at the office prior to the syncopal episode his blood pressure was in the 70s/50s when he was seated in his wheelchair. Based on his chart it appeared that [facility] staff gave him his morning medications regardless of a measured blood pressure in the 90s systolic. He was discharged on the 14 of this month and is currently taking amlodipine 5 mg BID, metoprolol 100 mg daily , lisinopril 40 mg BID, and hydrochlorothiazide 25 mg BID. Additionally he has been prescribed Losartan and Isosorbide, it is unclear whether he is taking these medications as well. Here in the emergency department the patient was initially quite hypotensive with a systolic blood pressure in the 80s though improving significantly with aggressive IV fluid resuscitation. LABS: CBC unremarkable, potassium 3.2 down from prior, creatinine 1.86 acute elevated form baseline, troponin neg, BNP 1286. EKG was obtained and interpreted by myself as documented above. Chest x-ray demonstrated no acute cardiopulmonary process. I had initially hoped to be able to discharge this patient and had a long conversation with his primary care physician ( Dr. Singh) in which we made the following changes to his medications: 1. Hold amlodipine tonight. 2. Starting tomorrow reduce amlodipine dose to 2.5 mg twice daily 3. Do not administer isosorbide, metoprolol, lisinopril or hydrochlorothiazide if the patient's systolic blood pressure is less than 120. Meanwhile, the patient was not quite somnolent requiring 2 L of home oxygen. Moreover, the patient has significant acute kidney injury. Given these findings I do not feel that it is appropriate to discharge the patient at this time. I feel the patient requires further modification of his antihypertensive regimen as well as his polypharmacy in general. While I would have like to achieve this on an outpatient basis the findings of acute kidney injury and generalized somnolence/hypoxia warrants admission. Patient was discussed with admitting hospitalist and transferred in stable condition. Source of Hx: Old records, EMS, Family Time of Eval: 11:00 Re-Evaluation/Progress Note: Discussed plan for admission with the patient and his . They agree with plan. All questions were addressed. Consultation #1: Referral / Consult Name: Henry Jose DO Consulted With: Primary care physician Call Returned at: 10:03 Note: He does not prescribe the medications. He recommends calling Deedee Singh. Consultation #2: Referral / Consult Name: Deedee Singh MD Consulted With: Primary care physician Requested Call at: 10:03 Call Returned at: 10:10 Fire Observer: Agrees with eval, Agrees with plan Consultation #3: Referral / Consult Name: Bev Moreno MD Consulted With: Hospitalist Requested Call at: 10:42 Call Returned at: 11:07 Fire Observer: Will see patient, Agrees with eval, Agrees with plan, Accepts admit Counseled Regarding: Diagnosis, Lab results, Need for admission Discharge & Departure Primary Impression: Syncope Syncope type: unspecified Qualified Code: R55 - Syncope and collapse Additional Impressions: Orthostatic hypotension Polypharmacy Hypoxia Disposition: ADMITTED TO HOSPITAL Discharge Condition All VS Reviewed: Yes Condition: Stable Referrals: Henry Jose DO (PCP) Crit Care Except Billable Proc Time Spent: 75-104 minutes Services Performed: Patient management by me, Time spent at bedside, Reviewing test results, Reviewing imaging, Discussing patient care, Documentation in record Scribe Attestation Portions of this note were transcribed by Gregoria Enrique. I, Dr. Worthy personally performed the history, physical exam and medical decision-making; I reviewed and confirmed the accuracy of the information in the transcribed note. Signed by: Bob Beatty, 05/11/2016 at 1130. copies to: Henry Jose Beck O MD May 11, 2016 09:28 Gregoria Enrique May 11, 2016 09:41
[~2016-05-11 09:30] MED LIST changes: +0.9% Sodium Chloride 1,000 ML IV ONE; -CEFU250T82 PO; -CEFU500T61 PO; +KEP500TA PO; -LOSA25TA21 PO; -Lactobacillus Acidophilus PO; -METR500T PO
[2016-05-11 09:58] LABS: INR 1.49 ratio
[2016-05-11 10:05] LABS: TROPONIN T 0.01 ug/L (0.0-0.011)
[2016-05-11 10:07] LABS: BASOPHILS % (AUTO) 1.4 % (0-3); Mean Corpuscular Hemoglobin 29.2 pg (27.0-35.0); Mean Corpuscular Volume 86.7 fL (81-100); NEUTROPHILS % (AUTO) 63.1 % (40-74); Platelet Count 304 bil/L (150-400)
[2016-05-11 10:16] LABS: Magnesium 1.9 mg/dL (1.6-2.6)
[2016-05-11] MEDS ORDERED: Ondansetron 2 mg/mL 2 mL Inj IVPUSH PRN (10:45)
[2016-05-11] MEDS ORDERED: Alum-Mag Hydrox-Simeth 30 mL Suspension PO PRN ×2 (10:45→17:05)
--- NOTE | 2016-05-11 11:57 | DRSVH ---
PROCEDURE: X-RAY CHEST, TWO VIEWS ([id number]) INDICATIONS: hypoxia TECHNIQUE: 2 views of the chest were acquired. COMPARISON: [facility], CR, XR CHEST 1VW (PORTABLE), 04/26/2016, 6:03. [facility], CR, XR CHEST 1VW (PORTABLE), 04/20/2016, 23:39. FINDINGS: Surgical changes and devices: None. Lungs and pleura: No pleural effusions or pneumothorax. Lungs are clear. Except for a slight degre e of interstitial prominence, previously present, perhaps reflecting a prior smoking history Mediastinum: Mediastinal contours are normal. Heart size is normal. Bones and chest wall: No suspicious bony abnormalities. Soft tissues appear unremarkable. IMPRESSION: Source of current hypoxi is not found-slight interstitial prominence appears chronic and perhaps is related to prior smoking history. Severe COPD is not seen. Dictated by: Vasile Garcia M.D. on 05/11/2016 at 11:55 Approved by: Vasile Garcia M.D. on 05/11/2016 at 11:56
[2016-05-11] MEDS ORDERED: FLUT16SP NS (12:29)
[2016-05-11] MEDS ORDERED: HYDR12.5 PO (12:30)
[2016-05-11] MEDS ORDERED: LISI-567 PO (12:31)
--- NOTE | 2016-05-11 14:26 | NUR ---
ADMIT Patient arrived in room from ED at 1155, BP 111/60, denies pain and in no apparent distress. Patient is mildly unsteady on feet and requires 1-2 PA to transfer to scale and bed. Patient is forgetful and disoriented to time and place, though knows why he is being admitted. Oriented to room, MPC, call light and hospital policy. Admit video unavailable. Perianal and groin area noted to have significant redness and excoriation. Chronic stoner catheter in place and draining cloudy urine. Deborah care and cath care provided. Barrier cream applied to red areas. Med rec completed by admit RN in ED. Bed low and locked, call light in reach, care and frequent rounding in place, bed alarm on for safety.
[2016-05-11] MEDS ORDERED: Polyethylene Glycol (PEG) 17 Gm Powder PO PRN (17:05)
[2016-05-11] MEDS: 0.9% Sodium Chloride 1,000 ML IV SCH (17:59)
--- NOTE | 2016-05-11 19:15 | HP ---
[address] [address] HISTORY AND PHYSICAL PATIENT: ZEB BEARD : 1940 MR#: [id number] ADMIT: 05/11/2016 JOB ID: [id number] PRIMARY CARE PROVIDER: Henry Jose DO PRISON PHYSICIAN PROVIDER: Deedee Singh MD ADMISSION STATUS: The patient is admitted from ED, observational status, blue team. CHIEF COMPLAINT: Lightheaded episode and hypotension. HISTORY OF PRESENT ILLNESS: This 75-year-old white male has been in our hospital twice this month. He was here April 21 through the , discharged, returned the next day, and then was here for a week, April 26 through May 03. He had a stroke, I think recent pneumonia, and was discharged to [facility] to recover. All-in-all he has been doing well there. However, this morning he was a bit lightheaded at [facility]. Blood pressure systolic reportedly per ED physician was in the 70s. The nursing staff there gave him all of his blood pressure medicines, which are a lot, and sent him to his appointment with his urologist. He is in a wheelchair and apparently became somewhat lightheaded, dizzy, and apparently was not really responsive while in his wheelchair, and that was associated with low blood pressure. Paramedics were called. He was transported to the emergency department. He arrived to the emergency department at 9:30 in the morning. I was called an hour and [address]. [address]. Worthy indicated that the patient needed admission for a new hypoxemia, worsening renal failure, and hypotension. The patient did receive some fluid in the emergency department. Initial blood pressure was 100/60. It did drop to 86/54. He got a fluid bolus in the ED, blood pressure came up to 111 systolic, and then 107 systolic. In terms of his worsening renal function, the patient's creatinine today is 1.86 and upon discharge from the hospital on May 03, 2016 was 1.32. Reviewing the patient's oximetry readings from the ED, I do not see any evidence of hypoxemia; actually, the patient's O2 saturation was 92% on room air and he was put on oxygen and all of those saturations remained above 90%. The patient is interviewed up in the room. The patient says he feels fine and is wondering why he is in the hospital, back to baseline. He has no complaints. He is not lightheaded at this time. Denies a headache. He is not having any chest pain, nausea, diarrhea, or any other complaints. In fact, he is feeling so well he is not even sure he needs to go back to the alf and is wondering if he could be discharged home from the hospital rather and than returning to [facility]. Dr. Worthy told he did talk to Dr. Deedee Singh by phone who gave the plant to hold his amlodipine tonight and then reduce his amlodipine tomorrow morning's dose to 2.5, and stop the b.i.d. dosing, and then to write parameters to hold his isosorbide, metoprolol, lisinopril, hydrochlorothiazide. REVIEW OF SYSTEMS: Complete review of systems obtained. All pertinent positives as per HPI above. Rest of review of systems negative. PAST MEDICAL HISTORY: 1. 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 2. Chronic seizure disorder likely due to recurrent CVAs. 3. Persistent atrial fibrillation. 4. Known coronary artery disease with prior STEMI. 5. Hypertension. 6. Hyperlipidemia. MEDICATIONS: Discharge medications from a week ago included: 1. Tylenol p.r.n. 2. Amlodipine 5 b.i.d. 3. Aspirin 81 daily. 4. Lipitor 25. 5. Dabigatran 150 b.i.d. 6. Hydrochlorothiazide 25 daily. 7. Isorbid 30 q. 24. 8. Keppra 500 b.i.d. 9. Lisinopril 40 daily. 10. Metoprolol 100 b.i.d. 11. Seroquel 25 at bedtime. ALLERGIES: PENICILLIN. SOCIAL HISTORY: The patient is currently living at [facility] and hopefully will be getting home soon. It appears the patient has never smoked and no substance abuse or alcohol at this time. FAMILY HISTORY: Positive for mother with heart disease, specifics not known. PHYSICAL EXAMINATION: Current blood pressure 107/69, heart rate 84, respiratory rate 22, O2 sats 96% on 2.5 L. The patient is sitting up in bed, looks perfectly fine. Skin: Warm and dry. Eyes: PERRLA. Mouth shows adequate hydration. No JVD. Lungs are clear, but slightly coarse. Cardiac: Slightly irregular. Soft systolic murmur. Abdomen: Soft, nonacute, benign. Extremities: Showed no significant edema. The patient's cranial nerves appear grossly intact. He also has some right-sided weakness. FINAL DIAGNOSES: 1. Transient hypotension, resolved by the time of admission. I suspect his hypotension was secondary to the patient's blood pressure medicines as they have recently been increased. At this time we are going to reduce his amlodipine from 5 b.i.d. down to 5 in the morning, we will stop his hydrochlorothiazide, continue his isosorbide, hold his lisinopril, reduce his metoprolol from 100 down to 50 b.i.d. The patient will get orthostatic monitoring tonight and tomorrow. 2. Prerenal azotemia, present on admission. Active, mild. The patient's creatinine has gone up a little bit. He appears a bit dry. He will be placed on a little bit of normal saline overnight with changes noted above and a repeat BMP in the morning. 3. Recent cerebrovascular accidents. 4. Persistent atrial fibrillation, present on admission. Stable. The patient's aspirin and Pradaxa will be continued. Will reduce the metoprolol and watch the rate on telemetry. 5. Chronic hypertension, present on admission. Stable. The patient's blood pressure medicines will be changed as noted under problem number one. His blood pressure will be monitored. 6. Chronic seizure disorder, present on admission. Stable. The patient's Keppra will be continued. 7. Known coronary artery disease, present on admission. Stable. The patient's aspirin and isosorbide will be continued. Metoprolol continued, but slightly reduced. The patient will be monitored closely. CODE STATUS: DNR, DNI status per documentation.
[2016-05-11] MEDS: Dabigatran 150 mg Capsule PO SCH (20:55)
[2016-05-11] MEDS: levETIRAcetam 500 mg Tablet PO SCH (20:55)
[2016-05-12] VITALS (10 sets, daily range): BP systolic 106–129; BP diastolic 68–84; PULSE 71–91; RESP 16; O2SAT 92–96
--- NOTE | 2016-05-12 04:27 | NUR ---
NOC shift note Patient slept soundly through the night. Denies pain. Forgetful to place, needed reorienting. No attempts to get out of bed. Unable to get ordered orthostatic BP's r/t patient fell asleep early- will pass on to day RN. Luther draining yellow urine to gravity, IV fluids infusing. Blood pressure remained stable. Bed alarm on for safety, intentional rounding in place.
[2016-05-12] MEDS: 0.9% Sodium Chloride 1,000 ML IV SCH ×2 (05:47→20:32)
[2016-05-12 08:27] LABS: Mean Corpuscular Hemoglobin 29.6 pg (27.0-35.0); Mean Corpuscular Volume 87.3 fL (81-100); Platelet Count 219 bil/L (150-400)
[2016-05-12] MEDS: Fluticasone 0.05% 15 Spray/2 Gm 16 Gm Nasal Spray NOSTRIL SCH (08:30)
[2016-05-12] MEDS: Isosorbide Mononitrate 30 mg ER24 Tablet PO SCH (08:30)
[2016-05-12] MEDS: levETIRAcetam 500 mg Tablet PO SCH ×2 (09:01→20:32)
[2016-05-12] MEDS: Dabigatran 150 mg Capsule PO SCH ×2 (09:02→20:32)
[2016-05-12 09:08] LABS: BASOPHILS % (AUTO) 3 % (0-3); EOSINOPHILS % (AUTO) 5 % (0-5); MONOCYTES % (AUTO) 13 % (4-12); NEUTROPHILS % (AUTO) 60 % (40-74)
[2016-05-12] MEDS ORDERED: Potassium Chloride Inj 30 MEQ in Dextrose 5% 500 ML IV ONE (13:40)
--- NOTE | 2016-05-12 14:14 | PCM.PNMED ---
Subjective Date of Service May 12, 2016 Subjective This is 75-year-old white male with history of right hemiparesis due to embolic strokes, chronic seizure disorder, persistent atrial fibrillation, and hypertension, who has been in our hospital twice this month with a stroke and recent pneumonia, and was discharged to [facility] to recover. He presented to the ER yesterday with lightheaded episode and low blood pressure. He was admitted for hypoxemia, worsening renal failure, and hypotension. No acute overnight events. Patient is resting comfortably in bed this morning. Denies dizziness, lightheadedness, chest pressure, shortness of breath, weakness. Exam Vital Signs Vital Sign - Last Date Time Temp Pulse Resp B/P Pulse Ox O2 Delivery O2 Flow Rate FiO2 05/12/16 10:00 36.7 76 16 115/69 92 Room Air 05/11/16 20:52 2.00 Intake and Output 05/11/16 05/11/16 05/12/16 Cumulative From/Thru 15:00 23:00 07:00 05/11/16 09:30 - 05/12/16 05:49 Intake Total 1000 ml 971 ml 1971 ml Output Total 550 ml 550 ml Balance 1000 ml -550 ml 971 ml 1421 ml IV Total 1000 ml 971 ml 1971 ml Output Urine Total 550 ml 550 ml Exam General: Alert, Oriented X3 NAD Head: Normocephalic, atraumatic Eyes: DEJAH, EOMI, no scleral Icterus Oropharynx: pink moist oral mucosa Neck: supple, trachea midline, no adenopathy Chest: clear to auscultation B/L, no wheezing rales or rhonchi Heart: irregular, Normal S1, S2, no murmurs noted Abdomen: soft, non-tender. Bowel sounds are normoactive. No guarding or rebound. Extremities: no cyanosis, clubbing or edema. No acute joint inflammation. Skin: no acute rashes or lesions noted Neuro: Cranial nerves II-XII intact, no focal findings. Psych: normal judgement and insight. IVs and Medications IV Fluids NS IV 80 mls/hr Medications Reviewed: Medications were reviewed in detail Medications MEDICATIONS: Discharge medications from a week ago included: 1. Tylenol p.r.n. 2. Amlodipine 5 b.i.d. (changed to 5 mg once daily) 3. Aspirin 81 daily. 4. Lipitor 25. 5. Dabigatran 150 b.i.d. 6. Hydrochlorothiazide 25 daily. (Hold) 7. Isorbid 30 q. 24. 8. Keppra 500 b.i.d. 9. Lisinopril 40 daily. (Hold) 10. Metoprolol 100 b.i.d. (decreased to 50 mg b.i.d.) 11. Seroquel 25 at bedtime. Lab and Diagnostics Result Diagram: 05/12/1650 05/12/16549 X-Rays, CTs and MRIs PROCEDURE: X-RAY CHEST, TWO VIEWS ([id number]) INDICATIONS: hypoxia IMPRESSION: Source of current hypoxi is not found-slight interstitial prominence appears chronic and perhaps is related to prior smoking history. Severe COPD is not seen. Dictated by: Vasile Garcia M.D. on 05/11/2016 at 11:55 Approved by: Vasile Garcia M.D. on 05/11/2016 at 11:56 Assessment & Plan 1. Transient hypotension, resolved by the time of admission. Most likely secondary to the patient's blood pressure medicines as they have recently been increased. Negative for orthostasis. - Reduce Amlodipine from 5 b.i.d. down to 5 daily - Reduce Metoprolol to 50 mg b.i.d. daily - Continue Isosorbide, 30 mg - Hold Hydrochlorothiazide and Lisinopril, reduce - Orthostatic monitoring 2. Prerenal azotemia, present on admission, resolved. - Creatinine of 1.86 and admission, improved to 1.19 this morning - Continue normal saline IV at current rate - Recheck renal function again in AM 3. Persistent atrial fibrillation, present on admission. Stable. - Continue patient's Aspirin and Pradaxa, and Metoprolol at the decreased dose of 50 mg b.i.d. - Watch the rate on telemetry 4. Chronic hypertension, present on admission. Stable. The patient's blood pressure medicines will be changed as noted under problem number one. - Monitor blood pressure 5. Chronic seizure disorder, present on admission. Stable. - Continue Keppra 6. Known coronary artery disease, present on admission. Stable. - Continue Aspirin and Isosorbide, reduced Metoprolol and Atorvastatin - Monitor closely. 7. Recent cerebrovascular accidents. Disposition: Kelsey Denys tomorrow with urology follow-up for catheter removal VTE Prophylaxis: SCDs VTE Mechanical Devices: Intermittant Pneumatic CD Resuscitation Status: DNR/DNI:Do Not Resuscitate/Intubate Attending Statement The patient was seen and examined together with Dr. Bermudez on 05/12/2016 and I agree with the history, exam and plan as outlined in the note above. Lucia Bermudez DO May 12, 2016 14:14 Chris Avelar MD May 13, 2016 13:11
--- NOTE | 2016-05-12 16:09 | NUR ---
Case Management: spoke with patient he asked me to call his as he does not know about insurance. Called Alicia Freeman and explained ARAIZA to her. noted this on ARAIZA and copy to be left in room. orig in chart. [id number].
[2016-05-13 00:33] VITALS: BP 124/82; PULSE 81; PULSE 82; RESP 20; O2SAT 98
[2016-05-13 04:58] VITALS: PULSE 90
[2016-05-13 06:09] LABS: EOSINOPHILS % (AUTO) 3.3 % (0-5); MONOCYTES % (AUTO) 13.1 % (4-12); Mean Corpuscular Volume 87.4 fL (81-100); NEUTROPHILS % (AUTO) 67.6 % (40-74); Platelet Count 207 bil/L (150-400)
--- NOTE | 2016-05-13 06:26 | NUR ---
Mentation Patient was alert and oriented at time of HS med pass, around 2030. Pleasant and cooperative. At about 2199, patient was assisted to restroom, and was reported to be confused, but helped back to bed. Around 2229, patient started yelling for help. This RN entered room, patient appeared frightened, asking to change rooms because of "the polarity" as he pointed to the wall behind him with power outlets. Attempted to reorient patient to place, and he said that he thought he was in the basement. Patient appeared calm and said he wanted to sleep. Moments later, patient called the switchboard, asking for the fire department or police. Entered patient's room again, and he was still frightened, wanting to leave. Active listening in place, gentle attempts to reorient patient to medical situation and hospital rooms all have the same outlets, ineffective. paged, and she came and sat with patient for about 20 minutes. Patient calmed down, and wanted to sleep again. Assisted back into bed, and patient has slept through the night since. Patient showed no aggression, did not raise voice, but was disoriented. Bed alarm on, call light within reach, intentional rounding.
[2016-05-13 06:44] VITALS: BP 131/77; PULSE 78; RESP 18; O2SAT 97
[2016-05-13 08:00] VITALS: PULSE 86
[2016-05-13] MEDS: Fluticasone 0.05% 15 Spray/2 Gm 16 Gm Nasal Spray NOSTRIL SCH (08:19)
[2016-05-13] MEDS: Dabigatran 150 mg Capsule PO SCH (08:21)
[2016-05-13] MEDS: levETIRAcetam 500 mg Tablet PO SCH (08:22)
[2016-05-13] MEDS: Isosorbide Mononitrate 30 mg ER24 Tablet PO SCH (08:24)
[2016-05-13] MEDS: 0.9% Sodium Chloride 1,000 ML IV SCH (08:27)
[2016-05-13 09:15] VITALS: BP_SYST 107; BP_SYST 110; BP_SYST 121; BP_DIAS 75; BP_DIAS 77; BP_DIAS 79; PULSE 74; RESP 18; O2SAT 96
[2016-05-13 12:59] VITALS: BP 109/72; PULSE 73; RESP 20; O2SAT 95
--- NOTE | 2016-05-13 13:01 | NUR ---
Social Work: Initial Assessment Data: Pt is a 75 y/o male admitted for hypoxia, KIA, syncope. Pt's PCP is Dr Jose, pt's insurance is [employer]. Readmit score 4, high. TERRAZZO LAYER met with pt and spouse at bedside, role explained. Pt states that he and his in [place] in a single story home where he uses no DME. Pt's spouse states pt has been at [facility] for correction previous to admission. Pt does not drive, has no hx of HH, no LTC or VA benefits. Pt is not a caregiver. Pt's spouse states she is DPOA, TERRAZZO LAYER requested copy for hospital. TERRAZZO LAYER explained that PT is recommending SNF and that an authorization request was sent to [employer] but they will likely deny pt. Pt's spouse is upset about this. TERRAZZO LAYER explains the options which include SNF private pay, home with HH, private pay caregiving, friends and family assisting with care, and assisted living facilities. Pt and spouse state they cannot afford any options which are private pay and that if the authorization is denied, they will take pt home with HH. HH choice list given, no preference stated. TERRAZZO LAYER referred pt to [facility], spoke with Marquis Vo, access given. PT also recommending FWW for pt. TERRAZZO LAYER requested prescription from for walker for pt. Pt and spouse state they would like this to be covered by insurance if possible. Assessment: Pt who is independent at baseline. Plan: Pt will either d/c home with [facility], RN/PT/OT/TERRAZZO LAYER with care from , or to [facility] pending [facility] authorization. TERRAZZO LAYER will continue to follow. VICKY Eller Addendum: 05/13/16 at 1405 by NIGHAT MCNALLY Amended: Links added.
--- NOTE | 2016-05-13 13:54 | NUR ---
Called and spoke with Francheska Downing CM at [facility] and let her know we need to have formal denial given to in order to plan for home discharge. Updated NUMERICAL CONTROL MACHINE OPERATOR Addendum: 05/13/16 at 1414 by NORBERT JEAN-BAPTISTE CM Faxed order and clinicals to [facility] for FWW per NUMERICAL CONTROL MACHINE OPERATOR request. Addendum: 05/13/16 at 1549 by NORBERT JEAN-BAPTISTE CM Francheska Downing CM @ [facility] has called and will be issuing formal denial to patient's . Updated NUMERICAL CONTROL MACHINE OPERATOR
--- NOTE | 2016-05-13 16:44 | PCM.DIMED ---
Lucia Bermudez DO 05/13/16 1437: Discharge Instructions Date of Service May 13, 2016 Dates of Hospitalization May 11, 2016 at 11:12 Discharge Diagnosis Discharge Diagnosis 1. Transient hypotension, resolved by the time of admission. 2. Prerenal azotemia, present on admission, resolved. 3. Persistent atrial fibrillation, present on admission. Stable. 4. Chronic hypertension, present on admission. Stable. 5. Chronic seizure disorder, present on admission. Stable. 6. Known coronary artery disease, present on admission. Stable. 7. Recent cerebrovascular accidents. Medication Instructions Continue taking Amlodipine at a reduced dose: take 5 mg daily Continue taking Metoprolol at reduced dose: take 50 mg twice daily Continue taking Isosorbide 30 mg daily Discontinue Lisinopril and Hydrochlorothiazide Diet Heart Healthy Activity Limited until seen by PCP Call your provider Fever or Chills, Shortness of breath, Bleeding, Chest pain, Vomitting, Excessive diarrhea, Weakness (unilateral) Patient Instructions Follow-up Provider: Henry Jose DO Follow-up with PCP in: [address] Gary Sanders's office will call you and schedule an appointment for catheter removal in a week. Chris Avelar MD 05/14/16 1330: Lucia Bermudez DO May 13, 2016 14:37 Chris Avelar MD May 14, 2016 13:30
--- NOTE | 2016-05-13 16:46 | NUR ---
Social Work: Discharge Data: Pt is on day 2 of hospitalization. EMR reviewed. states discharge orders are being put in currently. [employer] has denied pt's SNF stay. Pt and spouse plan to appeal this denial and has phone number to do so. TARE WEIGHER states if they take back the denial and state pt can go to SNF, pt and spouse can call [facility]. Pt is observations and cannot appeal d/c. TARE WEIGHER informed pt and spouse that they can either pay privately for SNF or go home today. They chose to go home, accepted HH services. HH choice list provided. No preference made. TARE WEIGHER referred pt to [facility], RN/PT/OT/TARE WEIGHER. Left a message with [employer], access given. FWW has been ordered through [facility] by UR specialist, who states they will deliver tomorrow or the next day, TARE WEIGHER gave pt's spouse phone number for [employer] to call if there is any delay. No further d/c planning needs at this time. TARE WEIGHER will continue to follow if needs arise. Assessment: Pt who is independent at baseline. Plan: Pt will d/c home via POV today with spouse with [facility], RN/PT/OT/TARE WEIGHER, FWW to be delivered by [facility]. No further d/c planning needs at this time. TARE WEIGHER will continue to follow if needs arise. VICKY Eller
[2016-05-13] MEDS ORDERED: METO50TA3 PO (16:48)
[2016-05-13] MEDS ORDERED: AMLO5TAB2 PO (16:48)
--- NOTE | 2016-05-13 17:15 | PCM.DC.MED ---
Discharge Summary Date of Service May 13, 2016 Dates of Hospitalization Date of Hospital Admission May 11, 2016 at 11:12 Date of Discharge: May 13, 2016 Providers: Admitting Physician: Bev Moreno MD Primary Care Physician: Henry Jose DO Attending Physician: Bev Moreno MD Diagnosis at Time of Discharge Diagnosis at Time of Discharge 1. Transient hypotension, resolved by the time of admission. 2. Prerenal azotemia, present on admission, resolved. 3. Persistent atrial fibrillation, present on admission. Stable. 4. Chronic hypertension, present on admission. Stable. 5. Chronic seizure disorder, present on admission. Stable. 6. Known coronary artery disease, present on admission. Stable. 7. Recent cerebrovascular accidents. Procedures XRay, CTs & MRIs PROCEDURE: X-RAY CHEST, TWO VIEWS ([id number]) INDICATIONS: hypoxia IMPRESSION: Source of current hypoxi is not found-slight interstitial prominence appears chronic and perhaps is related to prior smoking history. Severe COPD is not seen. Dictated by: Vasile Garcia M.D. on 05/11/2016 at 11:55 Approved by: Vasile Garcia M.D. on 05/11/2016 at 11:56 Brief History Per admitting physician, Dr. Moreno: This 75-year-old white male has been in our hospital twice this month. He was here April 21 through the , discharged, returned the next day, and then was here for a week, April 26 through May 03. He had a stroke, I think recent pneumonia, and was discharged to [facility] to recover. All-in-all he has been doing well there. However, this morning he was a bit lightheaded at [facility]. Blood pressure systolic reportedly per ED physician was in the 70s. The nursing staff there gave him all of his blood pressure medicines, which are a lot, and sent him to his appointment with his urologist. He is in a wheelchair and apparently became somewhat lightheaded, dizzy, and apparently was not really responsive while in his wheelchair, and that was associated with low blood pressure. Paramedics were called. He was transported to the emergency department. He arrived to the emergency department at 9:30 in the morning. I was called an hour and [address] Worthy[address]. Worthy indicated that the patient needed admission for a new hypoxemia, worsening renal failure, and hypotension. The patient did receive some fluid in the emergency department. Initial blood pressure was 100/60. It did drop to 86/54. He got a fluid bolus in the ED, blood pressure came up to 111 systolic, and then 107 systolic. In terms of his worsening renal function, the patient's creatinine today is 1.86 and upon discharge from the hospital on May 03, 2016 was 1.32. Reviewing the patient's oximetry readings from the ED, I do not see any evidence of hypoxemia; actually, the patient's O2 saturation was 92% on room air and he was put on oxygen and all of those saturations remained above 90%. The patient is interviewed up in the room. The patient says he feels fine and is wondering why he is in the hospital, back to baseline. He has no complaints. He is not lightheaded at this time. Denies a headache. He is not having any chest pain, nausea, diarrhea, or any other complaints. In fact, he is feeling so well he is not even sure he needs to go back to the custodial and is wondering if he could be discharged home from the hospital rather and than returning to [facility]. Dr. Worthy told he did talk to Dr. Deedee Singh by phone who gave the plant to hold his amlodipine tonight and then reduce his amlodipine tomorrow morning's dose to 2.5, and stop the b.i.d. dosing, and then to write parameters to hold his isosorbide, metoprolol, lisinopril, hydrochlorothiazide. Hospital Course Patient is a 75-year-old white male who was brought to [facility] ED due to lightheadedness and hypotension. He was admitted for a new hypoxemia, worsening renal failure, and hypotension. The patient did receive IV fluids, has been checked for orthostatics, and his blood pressure medications has been changed and he has been monitored on telemetry. Patient remain stable during the observation and has been discharged home with home health. Patient has requested his Stoner catheter to be removed before discharge. We contacted Dr. Martell's office, urology, and he recommended to discharge the patient home with the catheter. He he will evaluate the patient in a week for catheter removal in his clinic. This information has been delivered to patient's . 1. Transient hypotension, resolved by the time of admission. Most likely secondary to the patient's blood pressure medicines as they have recently been increased. Negative for orthostasis. The patient will continue with the following medications upon discharge: - Reduce Amlodipine from 5 b.i.d. down to 5 daily - Reduce Metoprolol to 50 mg b.i.d. daily - Continue Isosorbide, 30 mg - Discontinue Hydrochlorothiazide and Lisinopril 2. Prerenal azotemia, present on admission, resolved. - Creatinine of 1.86 and admission, improved to 1.06 this morning 3. Persistent atrial fibrillation, present on admission. Stable. - Continue patient's Aspirin and Pradaxa, and Metoprolol at the decreased dose of 50 mg b.i.d. 4. Chronic hypertension, present on admission. Stable. 5. Chronic seizure disorder, present on admission. Stable. - Continue Keppra 6. Known coronary artery disease, present on admission. Stable. - Continue Aspirin and Isosorbide. Metoprolol 7. Recent cerebrovascular accidents. Exam Vital Signs (Last) Date Time Temp Pulse Resp B/P Pulse Ox O2 Delivery O2 Flow Rate FiO2 05/13/16 16:19 Supplement Oxygen 05/13/16 12:59 36.7 73 20 109/72 95 05/13/16 09:15 2.00 Exam General: Alert, Oriented X3 NAD Head: Normocephalic, atraumatic Eyes: DEJAH, EOMI, no scleral Icterus Oropharynx: pink moist oral mucosa Neck: supple, trachea midline, no adenopathy Chest: clear to auscultation B/L, no wheezing rales or rhonchi Heart: irregular, Normal S1, S2, no murmurs noted Abdomen: soft, non-tender. Bowel sounds are normoactive. No guarding or rebound. : stoner cath in place Extremities: no cyanosis, clubbing or edema. No acute joint inflammation. Skin: no acute rashes or lesions noted Neuro: Cranial nerves II-XII intact, no focal findings. Psych: normal judgement and insight. Test 05/11/16 09:50 05/12/16 05:50 05/13/16 05:33 Prothrombin Time 16.1sec (8.1-12.5) Prothromb Time International Ratio 1.49ratio Troponin T 0.010ug/L (0.0-0.011) Pro-B-Type Natriuretic Peptide 1286pg/mL (0-376) Band Neutrophils % 0% (1-5) Metamyelocytes % 1% (0-0) Hematology Comments Magnesium Level 1.7mg/dL (1.6-2.6) White Blood Count 8.7th/mm3 (3.8-10.1) Red Blood Count 4.35mil/mm3 (4.40-5.80) Hemoglobin 12.6g/dL (13.8-17.2) Hematocrit 38.0% (41.0-50.0) Mean Corpuscular Volume 87.4fL (81-100) Mean Corpuscular Hemoglobin 29.0pg (27.0-35.0) Mean Corpuscular Hemoglobin Concent 33.2% (32.0-37.0) Red Cell Distribution Width 13.0% (12.3-15.4) Platelet Count 207bil/L (150-400) Neutrophils (%) (Auto) 67.6% (40-74) Lymphocytes (%) (Auto) 14.5% (14-46) Monocytes (%) (Auto) 13.1% (4-12) Eosinophils (%) (Auto) 3.3% (0-5) Basophils (%) (Auto) 1.0% (0-3) Sodium Level 144mEq/L (134-144) Potassium Level 3.5mEq/L (3.5-5.2) Chloride Level 107mEq/L (97-108) Carbon Dioxide Level 24mmol/L (18-29) Blood Urea Nitrogen 10mg/dL (8-27) Creatinine 1.06mg/dL (0.76-1.27) Estimat Glomerular Filtration Rate 73mL/min (>59) Glucose Level 87mg/dL (60-99) Calcium Level 8.0mg/dL (8.5-10.1) Total Bilirubin 0.5mg/dL (0.0-1.2) Aspartate Amino Transf (AST/SGOT) 20U/L (0-50) Alanine Aminotransferase (ALT/SGPT) 16U/L (0-44) Alkaline Phosphatase 43U/L (25-160) Total Protein 5.6g/dL (6.4-8.4) Albumin 3.0g/dL (3.4-5.0) Discharge Medications Discharge Medications Amlodipine (Amlodipine) 5 Mg Tablet 5 MG PO DAILY Prescribed by: NETO DESIR DO Aspirin (Aspirin) 81 Mg Tablet 81 MG PO DAILY (Reported) Atorvastatin (Lipitor) 20 Mg Tablet 40 MG PO HS Prescribed by: VINCE WHITNEY DO, RESIDENT Dabigatran Etexilate Mesylate (Pradaxa) 150 Mg Capsule 150 MG PO BID (Reported) Fluticasone Propionate (Fluticasone Propionate Nasal) 16 Gm [place].susp 2 SPRAY NS DAILY (Reported) Isosorbide MN ER (Isosorbide MN ER) 30 Mg Tab.er.24h 30 MG PO DAILY (Reported) Levetiracetam (Keppra) 500 Mg Tablet 500 MG PO BID Prescribed by: MAYI ALLEN MD Metoprolol Tartrate (Metoprolol Tartrate) 50 Mg Tablet 50 MG PO BID Prescribed by: NETO DESIR DO Quetiapine Fumarate (Quetiapine Fumarate) 25 Mg Tablet 25 MG PO HS (Reported) As needed Acetaminophen (Acetaminophen) 325 Mg Tablet 650 MG PO Q4H PRN PRN For Pain ( Reported) Polyethylene Glycol 3350 (Miralax) 17 Gm Powd.pack 17 GM PO DAILY PRN PRN For Constipation (Reported) Additional med instructions Continue taking Amlodipine at a reduced dose: take 5 mg daily Continue taking Metoprolol at reduced dose: take 50 mg twice daily Continue taking Isosorbide 30 mg daily Discontinue Lisinopril and Hydrochlorothiazide Followup Plan Discharge Diet: Heart Healthy Discharge Activity: Limited until seen by PCP Follow-up Provider: Henry Jose DO Follow-up with PCP in: 2 weeks Attending Statement The patient was seen and examined together with Dr. Desir on 05/13/2016 and I agree with the history, exam and plan as outlined in the note above. Neto Desir DO May 13, 2016 17:15 Chris Avelar MD May 14, 2016 13:30
--- NOTE | 2016-05-13 18:12 | NUR ---
Discharge: Pt increasingly confused as afternoon goes on, oriented to self. Intermittently paranoid, easily agitated. Stoner left in, per MD orders. Pt to have stoner d/c'd at Urology office next week, Urology to call and schedule appt. IV d/c'd intact. Extensive discussion with re home medications and community services available. is very overwhelmed by pt's cognitive/behavioral needs. Multiple discussions with case management. Given care notes r/t metoprolol, amlodipine, dementia, and stoner care. Given new prescriptions for amlodipine and metoprolol, prescription for FWW mailed to pt's house. D/c'd home with all personal belongings, providing transport.
== END 2016-05-13 17:10 | disposition home health service (06) ==
LOC: SED 09:30 → MPC 11:12
PROVIDERS: ADMIT Hospitalist; ATTEND Hospitalist
DX: R79.89 Other specified abnormal findings of blood chemistry (principal); I48.1 Persistent atrial fibrillation; I10 Essential (primary) hypertension; G40.909 Epilepsy, unspecified, not intractable, without status epilepticus; I25.10 Atherosclerotic heart disease of native coronary artery without angina pectoris; I25.2 Old myocardial infarction; E78.5 Hyperlipidemia, unspecified; I69.851 Hemiplegia and hemiparesis following other cerebrovascular disease affecting right dominant side; R13.0 Aphagia; Z66 Do not resuscitate; Z79.82 Long term (current) use of aspirin
CPT/HCPCS: 36415; 71020; 80048; 80053; 82948; 82962; 83735; 83880; 84132; 84484; 85025; 85610; 93005; 94799; 96361; 96374; 97161; 97530; 99291; 99292; G0378; G0463; J3480; J7030; J7060

== ENCOUNTER 2016-10-13 14:55 | Emergency (ER) | payer MEDICARE ==
[~2016-10-13] VITALS: Ht 167.6 cm; Wt 81.8 kg
[~2016-10-13 14:55] MED LIST changes: -0.9% Sodium Chloride 1,000 ML IV ONE; +FLUT16SP NS; -HYDR25TA4 PO; -LISI-567 PO; -METO100T3 PO; +METO50TA3 PO
[2016-10-13 15:11] VITALS: BP 154/104; PULSE 62; RESP 18; O2SAT 100
[2016-10-13 15:58] LABS: BASOPHILS % (AUTO) 0.8 % (0-3); EOSINOPHILS % (AUTO) 1.2 % (0-5); MONOCYTES % (AUTO) 10.5 % (4-12); Mean Corpuscular Hemoglobin 28.7 pg (27.0-35.0); Mean Corpuscular Volume 84.6 fL (81-100); NEUTROPHILS % (AUTO) 73.4 % (40-74); Platelet Count 246 bil/L (150-400)
--- NOTE | 2016-10-13 16:05 | ED.REPORT ---
HPI-General Illness Date of Service Oct 13, 2016 ED Provider: James Deutsch MD A 76 year old male on blood thinners with a history of strokes, seizures, atrial fibrillation, hypertension, dementia and hyperlipidemia presents to the ED complaining of 10/10, nonradiating, left sided rib pain. The pt was moving a tree limb at 13:00 today when he lost motor and controls tester of the tree limb, tripped and fell from ground level. He hit his head but did not lose consciousness. The pt was able to walk following the fall, but began experiencing a sharp pain on his left in his ribs. He became short of breath secondary to the pain, but found that the pain is relieved somewhat by laying on his side. He denies back pain or neck pain. No chest pain independent of the rib pain, not feeling lightheaded , no symptoms before tripping. States it was a clear mechanical fall. Nursing Notes Stated Complaint: GLF,HEART PROBLEMS Chief Complaint: Multiple Trauma/Fall Nursing Notes Reviewed: Yes Allergies: Coded Allergies: Penicillins (Verified Allergy, Unknown, 04/20/16) Scheduled Amlodipine (Amlodipine) 5 Mg Tablet 5 MG PO DAILY Aspirin (Aspirin) 81 Mg Tablet 81 MG PO DAILY Atorvastatin (Lipitor) 20 Mg Tablet 40 MG PO HS Dabigatran Etexilate Mesylate (Pradaxa) 150 Mg Capsule 150 MG PO BID Fluticasone Propionate (Fluticasone Propionate Nasal) 16 Gm [place].susp 2 SPRAY NS DAILY Isosorbide MN ER (Isosorbide MN ER) 30 Mg Tab.er.24h 30 MG PO DAILY Levetiracetam (Keppra) 500 Mg Tablet 500 MG PO BID Metoprolol Tartrate (Metoprolol Tartrate) 50 Mg Tablet 50 MG PO BID Quetiapine Fumarate (Quetiapine Fumarate) 25 Mg Tablet 25 MG PO HS Scheduled PRN Acetaminophen (Acetaminophen) 325 Mg Tablet 650 MG PO Q4H PRN PRN For Pain Polyethylene Glycol 3350 (Miralax) 17 Gm Powd.pack 17 GM PO DAILY PRN PRN For Constipation General Time Seen by MD: 15:49 Chief Complaint Chest pain Hx Obtained From: Patient, Spouse Arrived By: Walk-in Sudden in Onset?: Yes Onset Occurred: 5 - 8 hours ago Symptom Duration: Since onset Caused by: Accidental Location: : Chest (ribs) Severity: Maximum: Pain level 10 out of 10 Associated with: Denies: Diaphoresis, Neck pain Pertinent Negative: Pt denies other symptoms Exacerbated by: Moving affected area Relieved by: Remaining still Recent Healthcare: Recent doctor visit, Recent hospitalization Similar Sx Previous: No Past Medical History Past Medical History Encephalopathy, 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 Smoking History Unknown if Ever Smoker Social History Lives at [facility] Other Social History: Good social support, , Lives in [facility], Local resident Ambulatory Status Independent Review of Systems Full Review of Systems Constitutional: Denies: Fever, Weakness - generalized Eyes: Denies: Blurred bilateral, Diplopia Ears / Nose / Throat: Denies: Ear ringing bilateral, Voice change Respiratory: Reports: Shortness of breath (secondary to pain), Denies: Non-productive cough Cardiovascular: Reports: Chest pain (ribs on the left) GI: Denies: Abdominal pain Male: Denies Dysuria, Denies Incontinence Musculoskeletal: Denies: Back pain, Neck pain Hematologic: Denies Bruising Endocrine: Denies: Cold intolerance, Heat intolerance Skin: Denies Rash Neurologic: Denies: Change LOC Psychiatric: Denies: Change mental status, Hostile Complete sys rev & neg: except as marked. Physical Exam Constitutional: Well-developed, well-nourished. Not diaphoretic. Head: Normocephalic and atraumatic. No left mastoid tenderness and no ecchymosis over mastoid. No hemotympanum. Mouth/Throat: Oropharynx is clear and moist. No oropharyngeal exudate. Eyes: EOM are normal. Pupils are equal, round, and reactive to light. Neck: Supple, no tracheal deviation. Cardiovascular: Normal rate, irregular rhythm. Equal and intact distal pulses throughout. Pulmonary/Chest: Effort normal and breath sounds normal. No respiratory distress. Does have some mild L sided chest wall/rib pain to palpation, but no crepitus, no ecchymosis. Abdominal: Soft. No distension. There is no tenderness, rebound, or guarding. Bowel sounds present. Musculoskeletal: Range of motion grossly intact, moving all extremities. No edema or tenderness appreciated. Neurological: AOx3. Grossly nonfocal exam. Strength and sensation intact and equal to bilateral upper and lower extremities. Skin: Warm and dry, no rashes or pallor appreciated. Psychiatric: Appropriate mood and affect. Behavior appears normal. Vital Signs Vital Signs Date Time Temp Pulse Resp B/P Pulse Ox O2 Delivery O2 Flow Rate FiO2 10/13/16 17:50 67 119/77 96 Room Air 10/13/16 16:25 78 18 127/83 96 Room Air 10/13/16 15:11 36.0 62 18 154/104 100 Initial VS: Reviewed Interpretation & Diagnostics Lab Results Interpretation Result Diagram: 10/13/16 1703 10/13/16 1555 Test 10/13/16 15:55 10/13/16 17:03 White Blood Count 13.3th/mm3 (3.8-10.1) Red Blood Count 5.44mil/mm3 (4.40-5.80) Mean Corpuscular Volume 84.6fL (81-100) Mean Corpuscular Hemoglobin 28.7pg (27.0-35.0) Mean Corpuscular Hemoglobin Concent 33.9% (32.0-37.0) Red Cell Distribution Width 13.2% (12.3-15.4) Platelet Count 246bil/L (150-400) Neutrophils (%) (Auto) 73.4% (40-74) Lymphocytes (%) (Auto) 13.3% (14-46) Monocytes (%) (Auto) 10.5% (4-12) Eosinophils (%) (Auto) 1.2% (0-5) Basophils (%) (Auto) 0.8% (0-3) Prothrombin Time 12.0sec (8.1-12.5) Prothromb Time International Ratio 1.12ratio Activated Partial Thromboplast Time 35.4sec (22.8-33.0) Sodium Level 137mEq/L (134-144) Potassium Level 4.7mEq/L (3.5-5.2) Chloride Level 104mEq/L (97-108) Carbon Dioxide Level 18mmol/L (18-29) Blood Urea Nitrogen 19mg/dL (8-27) Creatinine 1.08mg/dL (0.76-1.27) Estimat Glomerular Filtration Rate 71mL/min (>59) Glucose Level 91mg/dL (60-99) Calcium Level 8.7mg/dL (8.5-10.1) Total Bilirubin 0.4mg/dL (0.0-1.2) Aspartate Amino Transf (AST/SGOT) 27U/L (0-50) Alanine Aminotransferase (ALT/SGPT) 18U/L (0-44) Alkaline Phosphatase 52U/L (25-160) Total Protein 7.2g/dL (6.4-8.4) Albumin 3.6g/dL (3.4-5.0) Alcohols < 10mg/dL (0-10) Hemoglobin 15.2g/dL (13.8-17.2) Hematocrit 44.5% (41.0-50.0) ECG Interpretation ECG Interpretation: atrial fibrillation with a rate of 76 Time: 15:11 Interpreted by: ED physician X-Ray Chest Interpretation Chest Xray Interpretation: IMPRESSION: No acute cardiopulmonary disease. Dictated by: Pedro Pablo Cervantes M.D. on 10/13/2016 at 16:26 Approved by: Pedro Pablo Cervantes M.D. on 10/13/2016 at 16:26 Interpretation / Wet Read by: Interpret - Radiologist CT Head Interpretation IMPRESSION: 1. No acute intracranial abnormalities. 2. Cerebral volume loss and chronic microvascular ischemic changes. 3. Mild ethmoid sinus mucosal thickening bilaterally suggesting mild sinus disease. 4. Fluid in the left mastoid. Recommend clinical correlation for mastoiditis. Dictated by: Pedro Pablo Cervantes M.D. on 10/13/2016 at 16:01 Approved by: Pedro Pablo Cervantes M.D. on 10/13/2016 at 16:05 Interpretation / Wet Read by: Interpret - Radiologist Re-Eval/Medical Decision Med Decision/Clinical Course In summary, 76-year-old male with a history of atrial fibrillation on Pradaxa presenting to the ED for evaluation after a mechanical fall earlier today. Head CT negative for acute bleed. There was some mention of some fluid in the left mastoid area, however he has no mastoid tenderness to palpation, no ecchymosis, no hemotympanum. CMP grossly within normal limits, white blood cell count of 13.3, otherwise CBC grossly within normal limits. EKG w/ afib, normal rate. Alcohol negative. He has a normal examination here in the ED with the exception of some tenderness on the left side of his chest wall over his ribs. No evidence of acute fracture on chest x-ray, however possible that he has some nondisplaced fractures and this was discussed with him. No pneumothorax. No chest pain independent of his rib pain, dyspnea, change in mental status, vision changes, or other complaints at this time. He states that he feels great and would like to be discharged. Given his reassuring exam here, clear mechanical etiology of his fall, negative workup, and availability of close follow-up, as well as after discussion of very careful return precautions, reasonable to discharge home with PCP follow-up tomorrow for reassessment. The patient and his are agreeable to this plan and have no further questions at this time. Source of Hx: Old records Time of Eval: 17:40 Patient Status: Condition improved Re-Evaluation/Progress Note: Pt rechecked, who is comfortable. The diagnosis and plan for discharge are discussed. The pt understands and agrees with the plan. All questions are addressed at this time. Counseled Regarding: Diagnosis, Lab results, Need for follow-up, When/why to return to ED Discharge & Departure Primary Impression: Fall Encounter type: initial encounter Qualified Code: W19.XXXA - Unspecified fall, initial encounter Additional Impression: Contusion of rib on left side Encounter type: initial encounter Qualified Code: S20.212A - Contusion of left front wall of thorax, initial encounter Disposition: Home Discharge Condition All VS Reviewed: Yes Condition: Improved Patient Instructions: Fall Prevention for Older Adults (ED), Rib Contusion (ED) Additional Instructions: Please call your regular doctor tomorrow to be reassessed. Your workup here in the ED did not show a bleed in your brain or evidence of a fracture on your xray. However, as discussed, it's possible that there could be a delay in symptoms so return immediately if you develop any change in the way you're feeling or acting, neck pain, headache, vision changes, problems breathing, chest pain, abdominal pain, or if there's anything else of concern to you. Referrals: Henry Jose DO (PCP) Scribe Attestation Portions of this note were transcribed by Silver Yun. I, Dr. La Nena personally performed the history, physical exam and medical decision-making; I reviewed and confirmed the accuracy of the information in the transcribed note. copies to: Henry Jose William B MD Oct 13, 2016 16:05 SILVER YUN Oct 13, 2016 17:33
--- NOTE | 2016-10-13 16:07 | DRSVH ---
PROCEDURE: CT BRAIN WITHOUT CONTRAST ([id number]) INDICATIONS: fall/hit head/on blood thinners TECHNIQUE: Noncontrast 4.5 mm thick angled axial sections acquired from the foramen magnum to the vertex, with c oronal reformats. COMPARISON: [facility], CT, CT BRAIN WO CON, 04/21/2016, 2:07. [facility], M R, MR BRAIN WO CON, 05/02/2016, 15:15. [facility], CT, CT BRAIN WO CON, 05/01/2016, 11:11. FINDINGS: Image quality: Excellent. CSF spaces: Basal cisterns are patent. No extra-axial fluid collections. The ventricles are symmet lexie in size and shape. Brain: There are old lacunar infarcts in basal ganglia bilaterally. No intracranial bleeds or masses . There is moderate cerebral volume loss for age, with resultant ventricular and sulcal prominence. There are moderate to severe periventricular and deep white matter chronic small vessel ischemic ayala nges. There is intracranial internal carotid artery atherosclerosis. Skull and face: Calvarium and visualized facial bones appear intact, without suspicious lesions. Sinuses: Mild ethmoid mucosal thickening. There is left mastoid fluid. IMPRESSION: 1. No acute intracranial abnormalities. 2. Cerebral volume loss and chronic microvascular ischemic changes. 3. Mild ethmoid sinus mucosal thickening bilaterally suggesting mild sinus disease. 4. Fluid in the left mastoid. Recommend clinical correlation for mastoiditis. Dictated by: Pedro Pablo Cervantes M.D. on 10/13/2016 at 16:01 Approved by: Pedro Pablo Cervantes M.D. on 10/13/2016 at 16:05
[2016-10-13 16:19] LABS: INR 1.12 ratio
[2016-10-13 16:25] VITALS: BP 127/83; PULSE 78; RESP 18; O2SAT 96
--- NOTE | 2016-10-13 16:28 | DRSVH ---
PROCEDURE: X-RAY CHEST, TWO VIEWS ([id number]) INDICATIONS: fell/hit chest TECHNIQUE: 2 views of the chest were acquired. COMPARISON: [facility], CR, XR CHEST 2VW, 05/11/2016, 11:36. FINDINGS: Surgical changes and devices: None. Lungs and pleura: No pleural effusions or pneumothorax. Lungs are clear. Mediastinum: Mediastinal contours are normal. Heart size is normal. Bones and chest wall: No suspicious bony abnormalities. Soft tissues appear unremarkable. IMPRESSION: No acute cardiopulmonary disease. Dictated by: Pedro Pablo Cervantes M.D. on 10/13/2016 at 16:26 Approved by: Pedro Pablo Cervantes M.D. on 10/13/2016 at 16:26
[2016-10-13 17:50] VITALS: BP 119/77; PULSE 67; O2SAT 96
== END 2016-10-13 18:15 | disposition home or self-care (01) ==
LOC: SED 14:55
DX: S20.212A Contusion of left front wall of thorax, initial encounter (principal); W01.198A Fall on same level from slipping, tripping and stumbling with subsequent striking against other object, initial encounter; Y93.89 Activity, other specified; Y92.9 Unspecified place or not applicable; Y99.9 Unspecified external cause status; I10 Essential (primary) hypertension; E78.5 Hyperlipidemia, unspecified; Z86.73 Personal history of transient ischemic attack (TIA), and cerebral infarction without residual deficits; Z79.82 Long term (current) use of aspirin; Z88.0 Allergy status to penicillin; I48.91 Unspecified atrial fibrillation; Z79.01 Long term (current) use of anticoagulants
CPT/HCPCS: 36415; 70450; 71020; 80053; 81002; 85014; 85018; 85025; 85610; 85730; 93005; 99285; G0480

== ENCOUNTER 2016-11-11 18:46 | Inpatient (IN) | payer MEDICARE ==
[~2016-11-11] VITALS: Ht 167.6 cm; Wt 96.9 kg
[2016-11-11 18:48] VITALS: BP 153/91; PULSE 89; RESP 16; O2SAT 94
--- NOTE | 2016-11-11 20:11 | ED.REPORT ---
HPI-Abd Pain M 40 and Over Date of Service Nov 11, 2016 ED Provider: Jose Sheffield MD Pt is a 76 year old male with a history of HTN, A-fib, dementia, bowel obstruction, and hyperlipidemia who presents to the ED complaining of vomiting onset 13:30 today. He c/o associated abdominal pain. He denies hematemesis and green emesis, diarrhea, dysuria, and back pain. The pt denies a history of similar symptoms. Per pt, he had a CT scan by his PCP, but he does not know what the CT scan was for. Nursing Notes Stated Complaint: ABDOMINAL PAIN Chief Complaint: Male Abdominal Pain Nursing Notes Reviewed: Yes Allergies: Coded Allergies: Penicillins (Verified Allergy, Unknown, 04/20/16) Scheduled Amlodipine (Amlodipine) 5 Mg Tablet 5 MG PO DAILY Aspirin (Aspirin) 81 Mg Tablet 81 MG PO DAILY Atorvastatin (Lipitor) 20 Mg Tablet 40 MG PO HS Dabigatran Etexilate Mesylate (Pradaxa) 150 Mg Capsule 150 MG PO BID Fluticasone Propionate (Fluticasone Propionate Nasal) 16 Gm [place].susp 2 SPRAY NS DAILY Isosorbide MN ER (Isosorbide MN ER) 30 Mg Tab.er.24h 30 MG PO DAILY Levetiracetam (Keppra) 500 Mg Tablet 500 MG PO BID Metoprolol Tartrate (Metoprolol Tartrate) 50 Mg Tablet 50 MG PO BID Quetiapine Fumarate (Quetiapine Fumarate) 25 Mg Tablet 25 MG PO HS Scheduled PRN Acetaminophen (Acetaminophen) 325 Mg Tablet 650 MG PO Q4H PRN PRN For Pain Polyethylene Glycol 3350 (Miralax) 17 Gm Pow[place].pack 17 GM PO DAILY PRN PRN For Constipation General Time Seen by MD: 20:06 Chief Complaint Other (vomiting) Hx Obtained From: Patient Arrived By: Walk-in Sudden in Onset?: No Onset Occurred: 5 - 8 hours ago Symptom Duration: Since onset Location: : Diffuse Quality: Painful Radiation: : Does not radiate Severity: Current: Moderate Severity: Maximum: Moderate Recent Healthcare: Recent doctor visit Similar Sx Previous: No Past Medical History Past Medical History Encephalopathy, 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 Smoking History Never Smoker Social History [facility] at [facility] Alcohol Use: Denies alcohol use Drug Use: Denies drug use Other Social History: Good social support, , Lives in [facility], Local resident Ambulatory Status Independent Review of Systems Denies green emesis GI: Reports: Abdominal pain, Diarrhea, Nausea, Vomiting, Denies: Hematemesis Male: Denies Dysuria Musculoskeletal: Denies: Back pain Complete sys rev & neg: except as marked. Physical Exam Initial Vital Signs Vital Signs (First) Date Time Temp Pulse Resp B/P Pulse Ox O2 Delivery O2 Flow Rate FiO2 11/11/16 18:48 36.4 89 16 153/91 94 Room Air Initial VS: Reviewed Head / Eyes: Atraumatic, Normocephalic Neck: Supple, Full range of motion Extremities: Vascular intact, Neuro intact Skin: Warm, Dry, No cyanosis Neurologic: Alert, Oriented Psychiatric: Mood/affect normal, Behavior normal General/Constitutional: Awake, Alert Respiratory / Chest: Atraumatic, Breath sounds NL, Breath sounds = bilat Cardiovascular: Heart rate NL, Regular rhythm, Heart sounds NL Abdomen: Atraumatic, Soft Mild right-sided abdominal tenderness Back: Atraumatic, Full range of motion, No CVA tenderness RECTUM: Small specks of blood mixed in with brown stool Interpretation & Diagnostics US ABDOMEN, RUQ: Impression: Cholelithiasis, in the proper clinical setting cholecystitis should be considered. There is extrahepatic biliary ductal dilatation. The distal portion of the common bile duct was not visualized. In the proper clinical setting, nonemergent MRCP or nonemergent CT can be done for further evaluation. Transmitted to the ED at 23:59 at [facility] Lab Results Interpretation Result Diagram: 11/11/16204411/11/162044 Test 11/11/16 20:45 11/11/16 22:34 White Blood Count 29.2th/mm3 (3.8-10.1) Red Blood Count 5.64mil/mm3 (4.40-5.80) Hemoglobin 16.3g/dL (13.8-17.2) Hematocrit 47.3% (41.0-50.0) Mean Corpuscular Volume 83.9fL (81-100) Mean Corpuscular Hemoglobin 28.9pg (27.0-35.0) Mean Corpuscular Hemoglobin Concent 34.5% (32.0-37.0) Red Cell Distribution Width 13.2% (12.3-15.4) Platelet Count 276bil/L (150-400) Neutrophils (%) (Auto) 90.1% (40-74) Lymphocytes (%) (Auto) 1.6% (14-46) Monocytes (%) (Auto) 7.7% (4-12) Eosinophils (%) (Auto) 0% (0-5) Basophils (%) (Auto) 0.1% (0-3) Sodium Level 135mEq/L (134-144) Potassium Level 4.3mEq/L (3.5-5.2) Chloride Level 95mEq/L (97-108) Carbon Dioxide Level 21mmol/L (18-29) Blood Urea Nitrogen 15mg/dL (8-27) Creatinine 1.03mg/dL (0.76-1.27) Estimat Glomerular Filtration Rate 75mL/min (>59) Glucose Level 142mg/dL (60-99) Lactic Acid Level 5.0mmol/L (0.4-2.0) Calcium Level 9.0mg/dL (8.5-10.1) Magnesium Level 1.8mg/dL (1.6-2.6) Total Bilirubin 4.1mg/dL (0.0-1.2) Aspartate Amino Transf (AST/SGOT) 811U/L (0-50) Alanine Aminotransferase (ALT/SGPT) 499U/L (0-44) Alkaline Phosphatase 107U/L (25-160) Total Protein 8.0g/dL (6.4-8.4) Albumin 4.3g/dL (3.4-5.0) Lipase 18U/L (13-60) Urine Color [place] (YELLOW) Urine Appearance Hazy (CLEAR,HAZY) Urine pH 5.0 (5.0-8.0) Urine Specific [place] 1.030 (1.003-1.035) Urine Protein 100mg/dL (NEG,TRACE) Urine Glucose (UA) Negativemg/dL (NEGATIVE) Urine Ketones Tracemg/dL (NEGATIVE) Urine Occult Blood Large (NEGATIVE) Urine Nitrite Negative (NEGATIVE) Urine Bilirubin Moderate (NEGATIVE) Urine Ictotest Positive (Negative) Urine Urobilinogen 1.0mg/dL (NORMAL) Urine Leukocyte Esterase Negative (NEGATIVE) Urine RBC 3-10/hpf (0-2) Urine WBC 0-5/hpf (0-5) Urine Epithelial Cells Few/hpf (NONE-MOD) Urine Crystals None seen (NONE SEEN) Urine Bacteria Few/hpf (NONE-FEW) Urine Hyaline Casts Occasional/lpf (NONE) Urine Granular Casts None seen (NONE SEEN) Urine Waxy Casts None seen (NONE SEEN) Urine Red Blood Cell Casts None seen (NONE SEEN) Urine White Blood Cell Casts None seen (NONE SEEN) Urine Mucus Present (None Seen) Urine Trichomonas None seen (NONE SEEN) Urine Yeast None (NONE SEEN) Urinalysis Comment None Urine Culture Reflexed Not indicated CT Abd / Pelvis Interpretation IMPRESSION: Cholelithiasis, in the proper clinical setting cholecystitis should be considered. Transmitted to the ED at 23:11 by Patel Barrios M.D. Study type: Abdominal CT no contrast Interpretation / Wet Read by: Discussed w radiologist Re-Eval/Medical Decision Med Decision/Clinical Course 76-year-old male presenting with right upper quadrant pain. LFTs are markedly elevated. Lipase is normal. Ultrasound shows dilated common bile duct with gallstones. His lactate is 5. His white blood cell count is 29,000. I suspect he has cholangitis and choledocholithiasis. He will be admitted for ERCP in the morning. He was placed on Rocephin and Flagyl given his penicillin allergy. 3 L normal saline were ordered. Nothing by mouth. Source of Hx: Old records Time of Eval: 00:23 Re-Evaluation/Progress Note: Pt rechecked. Informed pt of plan for admission. Pt understands and agrees with plan for admission. All questions addressed. Consultation #1: Referral / Consult Name: Contreras Pena MD Consulted With: Hospitalist Call Returned at: 23:52 I O Psychologist: Will see patient, Agrees with eval, Agrees with plan, Accepts admit Consultation #2: Referral / Consult Name: Tyrone Wright MD Call Returned at: 23:58 I O Psychologist: Agrees with eval, Agrees with plan Note: Discussed pt's case. Consultation #3: Call Returned at: 23:54 Note: Consulted US. Discussed US results. Counseled Regarding: Diagnosis, Lab results, Need for admission Discharge & Departure Primary Impression: Cholangitis Additional Impressions: Choledocholithiasis Sepsis Sepsis type: sepsis due to unspecified organism Qualified Code: A41.9 - Sepsis, unspecified organism Disposition: ADMITTED TO HOSPITAL Vital Signs - All Vital Signs Date Time Temp Pulse Resp B/P Pulse Ox O2 Delivery O2 Flow Rate FiO2 11/11/16 18:48 36.4 89 16 153/91 94 Room Air )( All Prior VS Reviewed: Yes Condition: Stable Referrals: Henry Jose DO (PCP) Scribjodi Attestation Portions of this note were transcribed by Cheri Ferrer. I, Dr. Sheffield personally performed the history, physical exam and medical decision-making; I reviewed and confirmed the accuracy of the information in the transcribed note. Signed by: Bob Watson, 11/11/16. copies to: Henry Jose Ben M MD Nov 11, 2016 20:11 Cheri Vasquez Nov 11, 2016 20:21
[2016-11-11] MEDS ORDERED: 0.9% Sodium Chloride 1,000 ML IV ONE ×2 (20:23→21:32)
[2016-11-11] MEDS ORDERED: Ondansetron 2 mg/mL 2 mL Inj IVPUSH PRN (20:25)
[2016-11-11 20:59] LABS: BASOPHILS % (AUTO) 0.1 % (0-3); EOSINOPHILS % (AUTO) 0 % (0-5)
[2016-11-11 21:01] LABS: MONOCYTES % (AUTO) 7.7 % (4-12); Mean Corpuscular Hemoglobin 28.9 pg (27.0-35.0); Mean Corpuscular Volume 83.9 fL (81-100); NEUTROPHILS % (AUTO) 90.1 % (40-74); Platelet Count 276 bil/L (150-400)
[2016-11-11 21:21] LABS: Magnesium 1.8 mg/dL (1.6-2.6)
[2016-11-11] MEDS ORDERED: metroNIDAZOLE Inj 500 MG in IV Premix 1 EACH IV ONE (21:35)
[2016-11-11] MEDS ORDERED: cefTRIAXone Inj 2,000 MG in Dextrose 5% Minibag Plus 50 ML IV ONE (21:35)
[2016-11-11 22:52] LABS: APPEARANCE,URINE HAZY (CLEAR,HAZY); COLOR,URINE AMBER (YELLOW); OCCULT BLOOD,URINE LARGE (NEGATIVE)
[2016-11-11 22:53] LABS: ICTOTEST,URINE POSITIVE (Negative)
[2016-11-12] VITALS (17 sets, daily range): BP systolic 106–137; BP diastolic 66–95; PULSE 83–119; RESP 16–25; O2SAT 91–97
[2016-11-12] MEDS ORDERED: Polyethylene Glycol (PEG) 17 Gm Powder PO PRN
[2016-11-12] MEDS ORDERED: Ondansetron 2 mg/mL 2 mL Inj IVPUSH PRN ×3 (00:05→20:10)
[2016-11-12] MEDS ORDERED: Alum-Mag Hydrox-Simeth 30 mL Suspension PO PRN ×2 (00:05)
[2016-11-12] MEDS ORDERED: 0.9% Sodium Chloride 1,000 ML IV ONE (01:15)
--- NOTE | 2016-11-12 01:35 | PCM.HPMED ---
Subjective Date of Service Nov 11, 2016 Primary Provider: Admitting Physician: Contreras Pena MD Primary Care Physician: Henry Jose DO Attending Physician: Contreras Pena MD Admit Status: From the Emergency Department, Remote Telemetry Chief Complaint: Vomiting History of Present Illness: Mr. Freeman is a 76-year-old gentleman with a history of hypertension, atrial fibrillation, dementia, CVA with development of aphasia, seizures, chronic encephalopathy, and right hemiparesis, that presented to the emergency department with complaints of a one day history of vomiting and associated abdominal pain. Initial evaluation revealed an elevated lactic acid 5.0, white count 29.2, and stat imaging revealed extrahepatic bile duct dilatation suggestive of choledocholithiasis. ED contacted GI, who kindly agreed to consult and proceed with ERCP. He is admitted for evaluation and treatment of sepsis secondary to choledocholithiasis and resultant cholangitis. - Hospital day one Patient is a 76-year-old gentleman but cannot recall why he presented to the emergency department today. At my time of evaluation, he was not oriented to time, or place; when asked how he was feeling and what brought him into the emergency department today, he responded that he should remain "mum" and that no one could be trusted. He reported his home as [facility] approximately "[place] away." Patient was uncertain if he were in a hospital, and he states that prior to my arrival, he urinated on the wall. Patient asked if I was a psychiatrist, of which, I replied "no." He was unable to convey the symptoms he was experiencing that brought him into the emergency department. After discussion with the ED physician, his was present prior to my arrival , but was not present during time of admission in my evaluation. At the time of admission, he denied any fever, chills, nausea, vomiting, abdominal pain, dysuria, hematuria, diarrhea, constipation. In the ED, T 36.4, P 89, RR 16, blood pressure 153/91, 94% on room air; initial labs revealed white count 29.2 with 90.1% neutrophils; LFTs significantly elevated with total bilirubin 4.1, AST 811, ALT 499, alkaline phosphatase 107; lactic acid 5.0; initial imaging including CT abdomen and pelvis with contrast and abdominal ultrasound which revealed extrahepatic biliary duct dilatation with approximately 7.7 mm diameter. ED kindly consulted gastroenterology, whom agreed to consult, and to proceed with ERCP, in addition to recommendations for continued antibiotics and fluids. Initial therapies included ceftriaxone and metronidazole, and 2 L normal saline. He was transported to medical floor in stable condition. Review of Systems: Complete review of systems obtained, pertinent positives and negatives as noted in history of present illness Allergies Coded Allergies: Penicillins (Verified Allergy, Unknown, 04/20/16) Home Medications Obtained from outpatient documentation dated 10/26/2016: Girish Freeman [id number] 1940 10/26/2016 08:00 AM 03/23 Medications (Added or Continued this visit) Start Date Medication Directions Stop Date 07/22/2016 amlodipine 10 mg tablet take 1 tablet by oral route every day 05/19/2016 aspirin 81 mg chewable tablet chew 1 tablet by oral route every day 05/19/2016 atorvastatin 20 mg tablet take 1 tablet by oral route every day 05/23/2016 Durable Medical Equipment use daily when walking 09/23/2016 fluconazole 100 mg tablet take 1 tablet by oral route once weekly for 12 weeks 05/19/2016 levetiracetam 500 mg tablet take 1 tablet by oral route 2 times every day 05/19/2016 metoprolol tartrate 50 mg tablet take 1 tablet by oral route 2 times every day with meals 06/18/2016 Pradaxa 150 mg capsule take 1 capsule by oral route 2 times every day 05/19/2016 quetiapine 25 mg tablet take 1 tablet by oral route every bedtime Time of admission, patient is unable to recall any of his medications. PMH Obtained from previous documentation, as patient is unable to recall his medical history at time of admission: Encephalopathy, 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, with recent admission to [facility] (Mar 2016) Seizures: likely due to CVAs NSTEMI Orthostatic hypotension Lightheadedness bowel obstruction Reports: Coronary artery disease, Hyperlipidemia, Hypertension, Stroke Reports: Atrial fibrillation, Dementia Surgical History Kidney stone removal Family History Reported: Mother with heart issues Social History Hx Alcohol Use: No Hx Substance Use: No Smoking Status: Unknown if Ever Smoker Living Arrangement: Group Home Facility ([facility]) Exam Vital Signs Vital Sign - Last Date Time Temp Pulse Resp B/P Pulse Ox O2 Delivery O2 Flow Rate FiO2 11/11/16 18:48 36.4 89 16 153/91 94 Room Air Intake and Output 11/11/16 11/11/16 11/12/16 Cumulative From/Thru 15:00 23:00 07:00 11/11/16 18:48 - 11/11/16 22:05 Intake Total 2000 ml 2000 ml Balance 2000 ml 2000 ml Intake IV Total 2000 ml 2000 ml Exam General: Oriented only to self, not oriented to time or place; appears mildly paranoid and anxious HEENT: Atraumatic, normocephalic, sclera anicteric, membranes moist Neck: Full range of motion without pain Cardiac: Regular rate and rhythm at time of examination without any appreciable murmurs Respiratory: Equal and adequate airflow all gutierrez without any wheeze or rhonchi ; no use of accessory muscles Chest: Atraumatic without any reproducible pain with palpation Abdomen: Soft, nontender, nondistended; patient denied any pain with palpation to right upper quadrant, negative Slater sign Extremities: No edema appreciated Skin: Warm and dry MSK: Not able to follow commands well enough to complete thorough MSK exam; able to move in transition without assistance Neuro: Cranial nerves II-XII grossly intact, speech without slur, facial expressions equal and symmetric Psych: Paranoid, declined to answer some questions, repeatedly stated that he had to remain "mum" and could not tell me the details about his initial symptoms Lab and Diagnostics Result Diagram: 11/11/16204411/11/162044 Assessment & Plan Mr. Freeman is a 76-year-old gentleman with a history of hypertension, atrial fibrillation, dementia, CVA with development of aphasia, seizures, and right hemiparesis, that presented to the emergency department with complaints of a one day history of vomiting and associated abdominal pain. Initial evaluation revealed an elevated lactic acid 5.0, white count 29.2, and stat imaging revealed extrahepatic bile duct dilatation suggestive of choledocholithiasis. ED contacted GI, who kindly agreed to consult and proceed with ERCP. He is admitted for evaluation and treatment of sepsis secondary to choledocholithiasis and resultant cholangitis. - Hospital day one Sepsis, acute, present on admission, under evaluation - Likely secondary to choledocholithiasis, resultant cholangitis - Admit: WBC 29.2, lactic acid 5.0 - Initial antibiotics: Metronidazole, ceftriaxone - Current antibiotics: Cefepime plus metronidazole - Continue IVF - Treat underlying cause Choledocholithiasis with development of cholangitis, acute, present on admission , under evaluation - CT and ultrasound revealed extrahepatic bile duct dilatation, 7.7 mm in diameter - GI consulted, plan for ERCP with GI team in am; consult order has been placed - Nothing by mouth Acute on chronic encephalopathy, present on admission, under evaluation - Likely secondary to sepsis resulting from choledocholithiasis and resultant cholangitis - Treat underlying cause History of multiple CVA with resultant encephalopathy, aphasia, seizures, and right hemiparesis, chronic, presumed stable - Resume home medications when reconciliation complete and when appropriate - Keppra IV 500 mg twice daily was initiated, as patient is nothing by mouth, and with severe infection, and concurrent antibiotic use, seizure threshold is likely lower - Keppra levels in am Hypertension, chronic, presumed stable - Resume home meds when appropriate and when med rec completed Goals of care - Patient was not able to make decisions at time of admission secondary to acute on chronic encephalopathy - Full code at this time; encourage patient to complete POLST form and advanced directives - Per previous documentation in April 2016, the had stated that the patient previously expressed desire for DNR/DNI status; at the time of admission , was not present, and patient was unable to make any coherent decisions-- please follow-up as soon as possible PRN fever, bowel, nausea, pain DVT: Hep q8 Diet: NPO GI: H2B IVF: NS 100 Code: FULL CODE Patient is admitted under inpatient status with expected length of stay greater than 2 midnights due to severity of presenting symptoms, risk of adverse event, and complexity of treatment plan. Pain Evaluation: Adequate Pain Control GI Prophylaxis: H2 mukul VTE Prophylaxis: Sub-Q Heparin (Unfractionated) Resuscitation Status: CPR: Attempt Resuscitation Attending Statement The patient was seen and examined together with Dr. Hassan on 11/11 and I agree with the history, exam and plan as outlined in the note above. Cindy Hassan DO Nov 12, 2016 01:35 Contreras Pena MD Nov 12, 2016 03:17
[2016-11-12] MEDS ORDERED: Cefepime Inj 2,000 MG in Dextrose 5% Minibag Plus 100 ML IV SCH (02:00)
[2016-11-12] MEDS: 0.9% Sodium Chloride 1,000 ML IV SCH ×3 (02:23→21:30)
[2016-11-12] MEDS: Cefepime Inj 2,000 MG in Dextrose 5% Minibag Plus 50 ML IV SCH ×3 (02:23→17:47)
[2016-11-12 04:57] LABS: BASOPHILS % (AUTO) 0.2 % (0-3); EOSINOPHILS % (AUTO) 0 % (0-5); MONOCYTES % (AUTO) 10.6 % (4-12); Mean Corpuscular Hemoglobin 29.4 pg (27.0-35.0); NEUTROPHILS % (AUTO) 82.9 % (40-74); Platelet Count 242 bil/L (150-400)
--- NOTE | 2016-11-12 06:22 | NUR ---
Admit Admitted to 2001 from ED. Able to ambulate on arrival. Strong steady gait noted but falls precautions initiated due to history of recent fall and confusion. Alert and confused. Appears to be compensating for confusion by attempting to joke when answering questions as to avoid the answer for example when asking how tall he is he would state three feet four inches. After looking up previous hospital visit information his recorded height was read back to him and then he stated "yeah that sounds right." Due to confusion and patient giving answers that don't reflect the question admission completed mostly from recall data from previous hospital stay. Tele Afib 70-80, RA without any noted respiratory distress, NS and ABO initiated per orders, NPO and Yusuf bed alarm on for patient safety. Oriented to call light use but has been unable to demonstrate call light use all shift and has been noted to attempt to self transfer. Nursing positioned near room for frequent monitoring.
[2016-11-12] MEDS: metroNIDAZOLE Inj 500 MG in IV Premix 1 EACH IV SCH ×2 (06:43→14:59)
[2016-11-12] MEDS ORDERED: FLUC25PO MC (09:03)
--- NOTE | 2016-11-12 09:35 | PCM.PNMED ---
Subjective Date of Service Nov 12, 2016 Subjective Mr. Freeman is a 76-year-old gentleman with a history of hypertension, atrial fibrillation, dementia, CVA with development of aphasia, seizures, and right hemiparesis, that presented to the emergency department with complaints of a one day history of vomiting and associated abdominal pain. Initial evaluation revealed an elevated lactic acid 5.0, white count 29.2, and stat imaging revealed extrahepatic bile duct dilatation suggestive of choledocholithiasis. Today, patient denies nausea, vomiting and abdominal pain. He has some dementia at baseline but also appears more lucid and less confused compared to when he presented yesterday. However, he was somewhat agitated and did not like to be instructed what to do. states that he can get agitated when he is in a new environment Follows commands and responds appropriately. Her telemetry has been in A. fib in the 80s to 100s. Overnight, patient was confused and only oriented to self. On review of systems, patient denies fevers, chills, headaches, shortness of breath, chest pain, nausea, vomiting, abdominal pain, dysuria, diarrhea, constipation. Exam Vital Signs Vital Sign - Last Date Time Temp Pulse Resp B/P Pulse Ox O2 Delivery O2 Flow Rate FiO2 11/12/16 05:30 98 11/12/16 03:31 36.6 18 137/81 94 Room Air Intake and Output 11/11/16 11/11/16 11/12/16 Cumulative From/Thru 15:00 23:00 07:00 11/11/16 18:48 - 11/12/16 06:29 Intake Total 2000 ml 2000 ml Output Total 150 ml 150 ml Balance 2000 ml -150 ml 1850 ml IV Total 2000 ml 2000 ml Output Urine Total 150 ml 150 ml Emesis 0 ml 0 ml # Voids 1 1 Exam General: Patient is sitting comfortably on chair, AAOX3, not in acute distress, cooperative and pleasant. HEENT: head normocephalic and atraumatic, PERRLA, EOMI, no scleral icterus, noninjected conjunctiva Neck: neck supple, non-tender, no lymphadenopathy, trachea midline, no JVD CV: Irregularly irregular rate and rhythm, s1 and s2 heard, no murmur, radial pulses 2+ and equal bilaterally, no rubs murmurs or gallops, no edema Lungs: Clear to auscultation bilaterally, no wheezes, rales or rhonchi, no increased work of breathing Abdomen: Protuberant abdomen, normoactive bowel sounds on 4Q, soft, non- distended, non-tender to palpation, no organomegally, negative Slater sign Skin: warm and dry Musculoskeletal: Unstable gait Neuro: Grossly neurologically intact, cranial nerves II through XII intact Psych: Normal mood and affect IVs and Medications IV Fluids 100 ml/hr NS Medications Reviewed: Medications were reviewed in detail Lab and Diagnostics Laboratory Tests Test 11/11/16 20:45 11/11/16 22:34 11/12/16 02:23 11/12/16 04:30 White Blood Count 29.2th/mm3 (3.8-10.1) 23.4th/mm3 (3.8-10.1) Red Blood Count 5.64mil/mm3 (4.40-5.80) 4.76mil/mm3 (4.40-5.80) Hemoglobin 16.3g/dL (13.8-17.2) 14.0g/dL (13.8-17.2) Hematocrit 47.3% (41.0-50.0) 40.0% (41.0-50.0) Mean Corpuscular Volume 83.9fL (81-100) 84.0fL (81-100) Mean Corpuscular Hemoglobin 28.9pg (27.0-35.0) 29.4pg (27.0-35.0) Mean Corpuscular Hemoglobin Concent 34.5% (32.0-37.0) 35.0% (32.0-37.0) Red Cell Distribution Width 13.2% (12.3-15.4) 13.2% (12.3-15.4) Platelet Count 276bil/L (150-400) 242bil/L (150-400) Neutrophils (%) (Auto) 90.1% (40-74) 82.9% (40-74) Lymphocytes (%) (Auto) 1.6% (14-46) 5.8% (14-46) Monocytes (%) (Auto) 7.7% (4-12) 10.6% (4-12) Eosinophils (%) (Auto) 0% (0-5) 0% (0-5) Basophils (%) (Auto) 0.1% (0-3) 0.2% (0-3) Sodium Level 135mEq/L (134-144) 138mEq/L (134-144) Potassium Level 4.3mEq/L (3.5-5.2) 3.9mEq/L (3.5-5.2) Chloride Level 95mEq/L (97-108) 102mEq/L (97-108) Carbon Dioxide Level 21mmol/L (18-29) 22mmol/L (18-29) Blood Urea Nitrogen 15mg/dL (8-27) 15mg/dL (8-27) Creatinine 1.03mg/dL (0.76-1.27) 1.01mg/dL (0.76-1.27) Estimat Glomerular Filtration Rate 75mL/min (>59) 77mL/min (>59) Glucose Level 142mg/dL (60-99) 115mg/dL (60-99) Lactic Acid Level 5.0mmol/L (0.4-2.0) 1.7mmol/L (0.4-2.0) Calcium Level 9.0mg/dL (8.5-10.1) 8.0mg/dL (8.5-10.1) Magnesium Level 1.8mg/dL (1.6-2.6) Total Bilirubin 4.1mg/dL (0.0-1.2) 4.4mg/dL (0.0-1.2) Aspartate Amino Transf (AST/SGOT) 811U/L (0-50) 488U/L (0-50) Alanine Aminotransferase (ALT/SGPT) 499U/L (0-44) 465U/L (0-44) Alkaline Phosphatase 107U/L (25-160) 97U/L (25-160) Total Protein 8.0g/dL (6.4-8.4) 6.7g/dL (6.4-8.4) Albumin 4.3g/dL (3.4-5.0) 3.4g/dL (3.4-5.0) Lipase 18U/L (13-60) Urine Color [place] (YELLOW) Urine Appearance Hazy (CLEAR,HAZY) Urine pH 5.0 (5.0-8.0) Urine Specific [place] 1.030 (1.003-1.035) Urine Protein 100mg/dL (NEG,TRACE) Urine Glucose (UA) Negativemg/dL (NEGATIVE) Urine Ketones Tracemg/dL (NEGATIVE) Urine Occult Blood Large (NEGATIVE) Urine Nitrite Negative (NEGATIVE) Urine Bilirubin Moderate (NEGATIVE) Urine Ictotest Positive (Negative) Urine Urobilinogen 1.0mg/dL (NORMAL) Urine Leukocyte Esterase Negative (NEGATIVE) Urine RBC 3-10/hpf (0-2) Urine WBC 0-5/hpf (0-5) Urine Epithelial Cells Few/hpf (NONE-MOD) Urine Crystals None seen (NONE SEEN) Urine Bacteria Few/hpf (NONE-FEW) Urine Hyaline Casts Occasional/lpf (NONE) Urine Granular Casts None seen (NONE SEEN) Urine Waxy Casts None seen (NONE SEEN) Urine Red Blood Cell Casts None seen (NONE SEEN) Urine White Blood Cell Casts None seen (NONE SEEN) Urine Mucus Present (None Seen) Urine Trichomonas None seen (NONE SEEN) Urine Yeast None (NONE SEEN) Urinalysis Comment None Urine Culture Reflexed Not indicated Test 11/12/16 08:23 Lactic Acid Level 1.6mmol/L (0.4-2.0) Microbiology 11/11/16 Blood Culture, Received Pending Result Diagram: 11/12/16 0430 11/12/16 0430 Assessment & Plan Mr. Freeman is a 76-year-old gentleman with a history of hypertension, atrial fibrillation, dementia, CVA with development of aphasia, seizures, and right hemiparesis, that presented to the emergency department with complaints of a one day history of vomiting and associated abdominal pain. Initial evaluation revealed an elevated lactic acid 5.0, white count 29.2, and stat imaging revealed extrahepatic bile duct dilatation suggestive of choledocholithiasis. He is admitted for evaluation and treatment of sepsis secondary to choledocholithiasis and resultant cholangitis. Sepsis, acute, present on admission, under evaluation - Likely secondary to choledocholithiasis, resultant cholangitis - Admit: WBC 29.2, lactic acid 5.0 -Today, WBC: 23.4, Lactic acid normalized to 1.0 - Initial antibiotics: Metronidazole, ceftriaxone - Current antibiotics: Cefepime plus metronidazole - Continue IVF - Treat underlying cause Choledocholithiasis with development of cholangitis, acute, present on admission , under evaluation - CT and ultrasound revealed extrahepatic bile duct dilatation, 7.7 mm in diameter - GI consulted, consult order has been placed, we appreciate their input, they will see patient this afternoon -Order MRCP - Nothing by mouth Elevated liver function tests, acute, present on admission, under evaluation -On admission: LFTs significantly elevated with total bilirubin 4.1, AST 811, ALT 499, alkaline phosphatase 107 -Today, bilirubin 4.4, AST 488, ALT 465, alkaline phosphatase 97 -Hold atorvastatin and fluconazole -Ordered hepatitis panel -Ordered PT, INR, PTT Acute on chronic encephalopathy, present on admission, under evaluation -Patient has dementia at baseline and is more alert and awake today - Likely secondary to sepsis resulting from choledocholithiasis and resultant cholangitis - Treat underlying cause History of multiple CVA with resultant encephalopathy, aphasia, seizures, and right hemiparesis, chronic, presumed stable - Resume home medications and appropriate - Keppra IV 500 mg twice daily was initiated, as patient is nothing by mouth, and with severe infection, and concurrent antibiotic use, seizure threshold is likely lower - Keppra levels in am Hypertension, chronic, presumed stable - Continue home dose metoprolol and amlodipine Atrial fibrillation, chronic, ongoing -Per telemetry, rate has been in the 80s to 100s -Continue home dose of metoprolol Hyperlipidemia, chronic, ongoing -Hold atorvastatin because of elevated LFTs PRN fever, bowel, nausea, pain DVT: Hep q8 Diet: NPO GI: H2B IVF: NS 100 Code: DNR/DNI Patient is admitted under inpatient status with expected length of stay greater than 2 midnights due to severity of presenting symptoms, risk of adverse event, and complexity of treatment plan. Pain Evaluation: Adequate Pain Control GI Prophylaxis: H2 mukul VTE Prophylaxis: Sub-Q Heparin (Unfractionated) Resuscitation Status: CPR: Attempt Resuscitation Time spent 30 minutes Attending Statement I have seen and evaluated the patient at bedside in addition to directly supervising care provided by resident physician Dr Velasco. I agree with above documentation. Stephenie Nieves DO Nov 12, 2016 07:32 Pro Sumner DO Nov 12, 2016 13:05
--- NOTE | 2016-11-12 10:10 | DRSVH ---
PROCEDURE: CT ABDOMEN AND PELVIS WITH CONTRAST ([id number]) INDICATIONS: abd pain TECHNIQUE: After the administration of intravenous contrast, 5 mm thick sections acquired from the diaphragm to the symphysis. 5 mm coronal and sagittal reformats were acquired. For radiation dose reduction, the following was used: automated exposure control, adjustment of mA and/or kV according to patient betty zapata. COMPARISON: [facility], US, ABDOMEN LTD, 11/11/2016, 23:24. [facility], CT, CT ABD PELVIS W CON, 04/21/2016, 2:07. FINDINGS: Image quality: Excellent. ABDOMEN: Lung bases: Right basilar atelectasis. Heart size is normal. Solid organs: Gallstones are present. There is probable mild gallbladder wall thickening and trace p ericholecystic fluid with associated stranding stranding suspicious for acute cholecystitis. A 1.3 cm enhancing nodule is noted in the posterior segment of right hepatic lobe near hepatic dome. The sple en is normal in size and enhancement. Biliary system is non dilated. Pancreas enhances normally. N o adrenal nodules. Kidneys demonstrate normal size and enhancement, without hydronephrosis. Bilater al renal cysts. Peritoneum and bowel: Bowel loops demonstrate normal wall thickness and caliber. No free fluid or a ir. Nodes and vessels: No retroperitoneal or mesenteric adenopathy by size criteria. Aorta and inferior vena cava are normal in size. Miscellaneous: No ventral hernias. PELVIS: Genitourinary: Bladder wall thickness is normal. Miscellaneous: No inguinal hernias or adenopathy. Bones: No suspicious bony lesions. No vertebral body compression fractures. IMPRESSION: 1. Cholelithiasis. There is mild gallbladder wall thickening with trace pericholecystic fluid and str anding suspicious for acute cholecystitis. 2. A 1.3 cm enhancing nodule in the posterior segment of the right hepatic lobe near the hepatic dome , unchanged. 3. Bilateral renal cysts. No significant discrepancy with the annual campaign manager radiology preliminary report. Dictated by: Pedro Pablo Cervantes M.D. on 11/12/2016 at 9:59 Approved by: Pedro Pablo Cervantes M.D. on 11/12/2016 at 10:09
[2016-11-12] MEDS ORDERED: QUET25TA73 PO (10:28)
[2016-11-12] MEDS ORDERED: METO50TA3 PO (10:28)
[2016-11-12] MEDS ORDERED: AMLO5TAB2 PO (10:28)
[2016-11-12 11:14] LABS: INR 1.23 ratio
--- NOTE | 2016-11-12 12:10 | DRSVH ---
PROCEDURE: US ABDOMEN, LIMITED ([id number]) INDICATIONS: right upper quadrant TECHNIQUE: Real-time focused scanning was performed of the abdomen, with image documentation. COMPARISON: [facility], CT, CT ABD PELVIS W CON, 11/11/2016, 22:27. FINDINGS: There are gallstones. Bladder wall measures 2.7 mm. Common bile duct measures 7.7 mm. IMPRESSION: Cholelithiasis and mild common bile duct dilation. No gallbladder wall thickening, perich olecystic fluid collection or sonographic Slater sign. If clinical symptoms persist or clinical susp icion for pathology is high, MRCP is suggested for further evaluation. No significant discrepancy with the float remover radiology preliminary report. Dictated by: Pedro Pablo Cervantes M.D. on 11/12/2016 at 12:05 Approved by: Pedro Pablo Cervantes M.D. on 11/12/2016 at 12:08
--- NOTE | 2016-11-12 15:02 | CONS ---
[address] [address] CONSULTATION REPORT PATIENT: ZEB BEARD : 1940 MR#: [id number] ADMIT: 11/12/2016 JOB ID: [id number] DATE OF SERVICE: PHYSICIAN REQUESTING CONSULTATION: ER physician. INDICATION: Suspected choledocholithiasis. HISTORY OF PRESENTING ILLNESS: The patient is a 76-year-old gentleman with a history of hypertension, atrial fibrillation, dementia, history of CVAs, and history of right hemiparesis who presented to the emergency department with a one-day complaint of vomiting with right upper quadrant pain. Patient states the pain was a sharp pain and woke him from sleep around 1:30 in the morning on the day and admission. He had associated bilious vomiting. He denied any subjective fevers, chills, or sweats. He stated that the pain felt like it was radiating into his back. When he was initially seen in the emergency department, he was felt to be altered mental status as he was not oriented to time or place. However, upon my interview with him today, he is oriented to person, place, and time, and answers questions appropriately. On admission to the emergency department, he underwent a CT of the abdomen and pelvis with contrast which revealed cholelithiasis, mild gallbladder wall thickening with trace pericholecystic fluid and stranding, suspicious for acute cholecystitis. Also noted was a 1.3 cm enhancing nodule in the posterior segment of the right hepatic lobe near the hepatic dome. Biliary system was nondilated and pancreas enhanced normally. His laboratory data revealed a total bili of 4.1, AST of 11, ALT of 499 with a normal INR of 1.23. His white blood cell count was elevated at 29.2, with a hemoglobin of 16.3, hematocrit 47.3, platelet count 276, with 90.1% neutrophils, 1.6% lymphocytes. Repeat CBC today showed a white blood cell count that had decreased to 23.4 with a drop in neutrophil percentage to 82.9. Additionally, his LFTs also had some improvement with his AST and ALT down to 488 and 465 respectively. However, his bili was slightly up at 4.4. He then also subsequently had an ultrasound of the right upper quadrant which showed cholelithiasis and mild common bile duct dilation. No gallbladder wall thickening, pericholecystic fluid collection or sonographic Slater's was appreciated. When I was initially consulted by the ED regarding his care, I had recommended an MRCP which has not been done yet. Overnight, he has not had any fevers. His vital signs are stable. PAST MEDICAL HISTORY: Obtained from his and it includes history of CVAs, coronary artery disease, hyperlipidemia, hypertension, atrial fibrillation, and dementia. PAST SURGICAL HISTORY: Includes kidney stone removal. FAMILY HISTORY: Significant for heart disease in his mother. SOCIAL HISTORY: Denies any tobacco or excessive alcohol use. He lives in a longterm facility. He is . HOME MEDICATIONS: Include: 1. Amlodipine 10 mg daily. 2. Aspirin 81 mg daily. 3. Atorvastatin 20 mg daily. 4. Fluconazole 100 mg one tablet once weekly for 12 weeks. 5. Levetiracetam 500 mg one tablet two times a day. 6. Metoprolol 50 mg tablet b.i.d. 7. Pradaxa 150 mg one capsule two times a day. 8. Quetiapine 25 mg at bedtime. ALLERGIES: Include PENICILLIN. CURRENT MEDICATIONS: Include: 1. Metronidazole 500 mg IV q.8. 2. Cefepime 2 g IV q.8. 3. Levetiracetam 500 mg IV b.i.d. 4. Tylenol as needed. 5. Maalox as needed. 6. Zofran as needed. 7. Senokot as needed. 8. Polyethylene glycol powder as needed. PHYSICAL EXAMINATION: VITAL SIGNS: Temperature is 36.6, his pulse is 87. His blood pressure is 123/72, and respiratory rate is 16. O2 saturation is 96% on room air. Generally, he is an elderly-appearing gentleman in no apparent distress who ambulates without assistance in the room. Answers questions appropriately. HEENT: No pallor. No icterus. Oropharynx is clear. Chest exam is clear to auscultation bilaterally. Cardiovascular exam: Irregularly irregular rate and rhythm. S1, S2 heard. Abdomen is obese, soft, nontender, nondistended, without hepatosplenomegaly. Extremities without edema. LABORATORY DATA: As mentioned above. In addition, his BMP is normal with the exception of his glucose being elevated at 115. His initial lactic acid was 5. This, however, improved to 1.6 and is currently 2.3. ASSESSMENT AND PLAN: 1. A 76-year-old gentleman presenting with acute onset right upper quadrant pain with cholestatic liver function tests. This is very suggestive of choledocholithiasis and CT imaging suggests the possibility of cholecystitis. I would recommend obtaining an MRCP, and if MRCP shows choledocholithiasis we will then plan for ERCP. I did discuss in detail regarding the risks and benefits of ERCP with the patient and his , and they were agreeable to proceed if MRCP showed common bile duct stones. Would also consider consulting General Surgery regarding his CT findings which are suggestive of acute cholecystitis. Would continue IV antibiotics as your are doing. Would check acute hepatitis panel as well. Would keep n.p.o. 2. Continue IV hydration and continue to follow CMP. Also recommend that you hold Pradaxa. 3. Hepatic lobe nodule. I would recommend repeat imaging in 3-6 months which could be done as an outpatient. Thank you for allowing me to participate in the patient's care. If you have any further questions, please do not hesitate to contact me.
--- NOTE | 2016-11-12 16:29 | DRSVH ---
PROCEDURE: MR ABDOMEN MRCP INDICATIONS: elevated liver function tests TECHNIQUE: Coronal HASTE through the abdomen, axial 2-D FLASH in- and [id number], and breath-hold T2 FSE with fat saturation through the biliary system and pancreas. Oblique coronal and axial thin-slice HASTE, radial thick-slab HASTE centered on the extrahepatic bile ducts. Intravenous secretin: Not requested. COMPARISON: [facility], CT, CT ABD PELVIS W CON, 11/11/2016, 22:27. FINDINGS: Image quality: Degraded by motion artifact. Pancreas and biliary system: Intra- and extra-hepatic biliary ducts are non dilated. No definite int raluminal focal filling defects identified. Evaluation is limited by motion artifact. Pancreas is normal in morphology, without adjacent soft tissue edema. Pancreatic duct is normal in caliber, without developmental anomalies. Gallbladder contains gallstones as before. There is gallb ladder wall thickening and mild pericholecystic edema and fluid in keeping with acute cholecystitis. There is gallbladder wall thickening. Other solid organs: Liver and spleen are normal in size. Subcentimeter presumed hepatic cysts althou gh technically too small to characterize. No adrenal nodules. Bilateral renal cysts are present, par tially visualized therefore incompletely evaluated. Nodes and vessels: No retroperitoneal or mesenteric adenopathy by size criteria. Aorta and inferior vena cava are normal in size. Bowel and peritoneum: Unenhanced bowel loops are normal in caliber. No free fluid. Lung bases: No basal pleural effusions. Heart size is normal. Bones and soft tissues: No ventral hernias. Bone marrow is of normal overall signal. IMPRESSION: Acute cholecystitis with associated gallbladder wall thickening and mild pericholecystic fluid/edema. Cholelithiasis. Motion degraded examination. Bilateral renal cysts. Dictated by: Ramses Bravo M.D. on 11/12/2016 at 16:20 Approved by: Ramses Bravo M.D. on 11/12/2016 at 16:28
--- NOTE | 2016-11-12 17:07 | NUR ---
Agitation When Pt ambulating in hallway this morning around 0930 CURBING STONECUTTER was walking with him for safety with IV pole. Pt became agitated and asking the CURBING STONECUTTER to leave. He then escalated and started yelling and calling people names and was making fists. rounding and was there to assist, chino trent was called. Pt then walked with the water pump assembler back to the room. Pt's stated he does this sometimes at home and she knows when he is going to escalate and usually will leave him alone. Pt ambulated multiple times today in hallway with IV pole with or staff member close by but allowing him his distance.
--- NOTE | 2016-11-12 18:05 | CONS ---
[address] [address] CONSULTATION REPORT PATIENT: ZEB BEARD : 1940 MR#: [id number] ADMIT: 11/12/2016 JOB ID: [id number] DATE OF SERVICE: 11/12/2016 CHIEF COMPLAINT: A 76-year-old gentleman with acute cholecystitis seen in consultation at the request of Jonel Wright MD, and Pro Sumner DO. HISTORY OF PRESENT ILLNESS: The patient is a 76-year-old gentleman who came into the emergency department yesterday afternoon with right-sided upper abdominal pain and vomiting. He had sharp pain and woke up from sleep associated with vomiting. He did not have any fevers or chills. He also said he felt like the pain was going to the back. He was initially admitted with possible diagnosis of cholangitis and Dr. Wright was consulted, but he felt the picture was more consistent with cholecystitis, prompting a surgical consultation. The patient denies abdominal pain right now, but he does report some discomfort in the right upper quadrant when he moves around. OTHER MEDICAL PROBLEMS: 1. 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 2. Seizures. 3. Yox-YZ-iwxholzpk myocardial infarction. 4. Atrial fibrillation. 5. Dementia. 6. Nephrolithiasis. 7. Hypertension. 8. Hyperlipidemia. 9. Obesity. PRIOR OPERATIONS: Kidney stone removal. SOCIAL HISTORY: He does not smoke or consume alcohol. He is here with his . He seems to be confused at times and does not appear to remember where he is, but per his and himself, he is still making his own medical decisions. ALLERGIES: PENICILLIN. MEDICATIONS AT HOME: 1. Amlodipine. 2. Baby aspirin. 3. Atorvastatin. 4. Fluconazole. 5. Fluticasone. 6. Keppra. 7. Metoprolol. 8. MiraLAX. 9. Quetiapine. 10. Pradaxa. reports not giving any medications after morning. FAMILY HISTORY: Mother had heart disease. REVIEW OF SYSTEMS: Twelve-point review of systems negative other than the pertinent positives noted so far. INVESTIGATIONS: Labs from November 12, 2016: White blood cell count 23.4, down from 29.2, hemoglobin 14.0, platelet count 242. Creatinine 1.01, glucose 115. Bilirubin 4.4. AST 488, ALT 465, alkaline phosphatase 97. INR 1.23. Hepatitis serologies pending. CT abdomen and pelvis from November 11, 2016, showed cholelithiasis with mild gallbladder wall thickening with trace pericholecystic fluid and stranding suspicious for acute cholecystitis. Bilateral renal cysts. Ultrasound abdomen performed last night was thought to have gallstones, but the gallbladder wall thickening was not noted. Common bile duct measurement was thought to be at 7.7. MRCP performed today showed gallbladder with gallstones with wall thickening and pericholecystic edema. No intra or extrahepatic biliary ductal dilatation. No obvious filling defects seen but he had significant motion artifact. PHYSICAL EXAMINATION: A 76-year-old male in no acute distress. Temperature 36.5, pulse 97, respiratory rate 18, blood pressure 127/67, saturating 93% on room air. Eyes: Normal pupils, conjunctivae. Ears, nose, and throat: Normal external appearance. Neck: No lymphadenopathy or jugular venous distention. Cardiovascular: Regular rate and rhythm. Respiratory: Normal effort, clear to auscultation. Gastrointestinal: Abdomen soft, barely tender to deep palpation in the right upper quadrant. Also tender in the epigastrium. Neurologic: He is able to walk. Conversations seem to vary between being coherent versus to not knowing where he is at the moment. Skin: Normal. ASSESSMENT AND PLAN: A 76-year-old gentleman with acute cholecystitis. Given his comorbidities, including recent cerebrovascular accidents, he would be a very high-risk surgical candidate. I discussed laparoscopic cholecystectomy with intraoperative cholangiogram. After discussing the risks, benefits, and alternatives, the family wished to proceed and we will plan accordingly.
[2016-11-12] MEDS ORDERED: Lactated Ringer's 1,000 ML IV ONE ×2 (19:20→21:59)
[2016-11-12] MEDS ORDERED: Propofol 10,000 mCg/mL 20 mL Inj ONE (19:22)
[2016-11-12] MEDS ORDERED: fentaNYL-PF 50 mCg/mL 2 mL Inj ONE (19:22)
[2016-11-12] MEDS ORDERED: Glycopyrrolate 0.2 MG/ML 1mL Inj ONE (19:22)
[2016-11-12] MEDS ORDERED: Neostigmine 1 mg/mL 10 mL Inj ONE (19:22)
[2016-11-12] MEDS ORDERED: Rocuronium 10 mg/mL 5 mL Inj ONE (19:22)
[2016-11-12] MEDS ORDERED: Bupivacaine-MPF 0.5% 30 mL Inj INFILTRATE ONE (20:09)
[2016-11-12] MEDS ORDERED: Atropine 0.4 mg/mL Inj IVPUSH PRN (20:10)
[2016-11-12] MEDS ORDERED: Lactated Ringer's 500 ML IV PRN (20:10)
[2016-11-12] MEDS ORDERED: Labetalol 5 mg/mL 20 mL Inj IV PRN (20:10)
[2016-11-12] MEDS ORDERED: MetoCLOpramide 5 mg/mL 2 mL Inj IVPUSH PRN (20:10)
[2016-11-12] MEDS ORDERED: EPHEDrine Sulfate 50 mg/mL Inj IVPUSH PRN (20:10)
[2016-11-12] MEDS ORDERED: Lactated Ringer's 1,000 ML IV SCH (20:10)
[2016-11-12] MEDS ORDERED: hydrALAZINE 20 mg/mL Inj IVPUSH PRN (20:10)
[2016-11-12] MEDS ORDERED: Phenylephrine 10,000 mCg/mL Inj IVPUSH PRN (20:10)
[2016-11-12] MEDS ORDERED: fentaNYL-PF 50 mCg/mL 2 mL Inj IVPUSH PRN (20:10)
[2016-11-12] MEDS ORDERED: Dexamethasone 4 mg/mL Inj IVPUSH PRN (20:10)
[2016-11-12] MEDS ORDERED: HYDROmorphone 1 mg/mL Inj IVPUSH PRN (20:10)
--- NOTE | 2016-11-12 20:14 | PCM.HPANE ---
Patient Data Date of Service: Nov 12, 2016 Surgeon Admitting Provider:Contreras Pena MD Attending Provider:Pro Sumner DO Primary Care Physician:Henry Jose DO Other Provider: Reason for Visit Choledocolithiasis Ht/WT & BMI Height (Feet): 5 Height (Inches): 6.00 Weight (Kilograms): 89.000 Body Mass Index 31.53 Allergies Coded Allergies: Penicillins (Verified Allergy, Unknown, 04/20/16) Past Anesthesia History Anesthesia History: Denies:: Anesthesia Reactions Diabetes History Hx Diabetes?: No MRSA MRSA: No Medications Hypertension Medication: Yes Home Meds Incl Beta Deacon: Yes Date Beta Deacon Taken: Nov 12, 2016 Time Beta Deacon Taken: 14:40 Active Scripts Amlodipine 5 Mg Tablet5 Mg PO DAILY #30 TABLET Ref 0 Prov:Stephenie Nieves DO 11/12/16 Metoprolol Tartrate 50 Mg Txbeye44 Mg PO BID #60 TABLET Ref 0 Prov:Stephenie Nieves DO 11/12/16 Quetiapine Fumarate 25 Mg Mpcqwm40 Mg PO HS #10 TABLET Ref 0 Prov:Stephenie Nieves DO 11/12/16 Levetiracetam (Keppra)500 Mg Oimlyj582 Mg PO BID #60 TABLET Prov:Jitendra Green MD 05/03/16 Atorvastatin (Lipitor)20 Mg Tjpplt31 Mg PO HS #30 TABLET Prov:Ho Valdivia DO 10/05/13 Reported Medications Fluconazole 100 Gm [id number] Gm MC WEEKLY 11/12/16 Fluticasone Propionate (Fluticasone Propionate Nasal)16 Gm [place].susp2 [place] NS DAILY #16 GM Ref 0 05/11/16 Aspirin 81 Mg Axtpwb81 Mg PO DAILY Ref 0 04/22/16 Acetaminophen 325 Mg Bmpjzn478 Mg PO Q4H PRN For Pain Ref 0 04/21/16 Polyethylene Glycol 3350 (Miralax)17 Gm Powd.pack17 Gm PO DAILY PRN For Constipation 04/21/16 Dabigatran Etexilate Mesylate (Pradaxa)150 Mg Czxpgkv792 Mg PO BID 30 Days 04/21/16 Discontinued Reported Medications Isosorbide MN ER 30 Mg Tab.er.24h30 Mg PO DAILY 04/21/16 History History of ENT Problems?: No HEENT History: Denies:: Abnormal Airway Difficult Intubation Denture Type: None Teeth Condition: Within Normal Limits Hx of Heart Problems?: Yes Cardiovascular History: Positive for:: Atrial Fibrillation Chest Pain (rare, history of [place] 2013) Hypertension Denies:: Cardiac Surgery Congestive Heart Failure Edema Heart Murmur Pacemaker Thrombophlebitis Hx of Respiratory Problem?: Yes Respiratory History: Positive for:: Dyspnea Pneumonia Denies:: Asthma COPD Chest Surgery Emphysema Hemoptysis Tuberculosis Hx Neurologic Problems?: Yes Neurological History: Positive for:: CVA (03/2016. cognitive dysfunction) Dizziness Denies:: Alzheimer's Disease Dementia Headaches Parkinson's Disease Seizures Hx of GI Problems?: Yes Gastrointestinal History: Positive for:: Gall Bladder Disease Hx of Problems?: Yes Genitourinary History: Positive for:: Kidney Stones Denies:: HX of Hemodialysis Urinary Tract Infection HX of Peritoneal Dialysis: No Male Hx: Denies:: Prostate Problems Scrotal Mass Testicular Surgery Hx Musculoskeletal Problems?: No Musculoskeletal History: Denies:: Back Injury Joint Replacement Musculoskeletal Trauma Hx of Psycho/Social Problems?: No Psycho Social History: Denies:: Anxiety Bipolar Disorder Hx Depression Suicide Attempt Hx Surgeries?: No Hx Any Other Health Problems?: No Other History: Positive for:: Hospitalization (04/14 [facility]) Denies:: Cancer Endocrine Disease Thyroid Disease History Blood Transfusions: Denies:: Blood Transfuse Reaction Blood Transfusions Hx Diabetes: No Hx Alcohol Use: NoHx Substance Use: No Smoking Status: Unknown if Ever Smoker Have You Smoked inLast 12 mo: No Stop/Bang Treated for Sleep Apnea?: No Do You Have a CPAP Machine?: No S-Snoring: Do You Snore Loudly: Yes T-Tired: feel tired, fatigued: Yes O-Obsered: Observed not breath: No P-Blood Pressure: treated: Yes B- Body Mass Index > 35 kg/m2: No A- Age over 50: Yes N- Neck Large Circumference: No G- Gender Male: Yes EZ Total Score: 4 EZ Risk Assessment: High Risk, =/>3 Yes EZ Category 2: Yes Risk Assessment Category Category 1A: Patient has history of documented sleep apnea, and HAS NOT received any narcotic, sedative or anesthesia administration during this stay. Category 1B: Patient has history of documented sleep apnea, and HAS received any narcotic , sedative or anesthesia administration during this stay Category 2: Patient has SUSPECTED Obstructive Sleep Apnea, and HAS received any narcotic , sedative or anesthesia administration during this stay. Category 3: Patient has SUSPECTED Obstructive Sleep Apnea and HAS NOT received narcotic, sedative or anesthesia administration during this stay. Category 4: Outpatient in Procedural Areas with known sleep apnea or who screen positive for High Risk via the STOP/BANG questionnaire. Exam Exam Vital Signs Vital Signs Date Time Temp Pulse Resp B/P Pulse Ox O2 Delivery O2 Flow Rate FiO2 11/12/16 17:01 36.5 97 18 127/67 93 Room Air 11/12/16 12:55 36.6 87 16 123/77 96 Room Air General Appearance: Alert, Cooperative, No Acute Distress HEENT/AIRWAY: MP 2, Neck Movement (OK, mcdonnell) Lungs: Clear to Auscultation, Normal Air Movement Heart: Normal S1, Normal S2 Meds/Labs/Diagnostics Admission Meds Current Medications Sodium Chloride 1,000 ml @ 0 mls/hr Q0M ONCE IV Last administered on 21:16; Start 11/11/16 at 20:23; Stop 11/11/16 at 20:26; Status DC Sodium Chloride 1,000 ml @ 0 mls/hr Q0M ONCE IV Last administered on 22:05; Start 11/11/16 at 21:32; Stop 11/11/16 at 21:34; Status DC Ceftriaxone Sodium 2000 mg/ Dextrose/Water 50 ml @ 100 mls/hr STAT ONCE IV Last administered on 11/11/16 22:05; Start 11/11/16 at 21:35; Stop 11/11/16 at 22:04; Status DC Metronidazole/ Sodium Chloride 500 mg/Premix 100 ml @ 200 mls/hr ONCE ONCE IV Last administered on 11/11/16 23:15; Start 11/11/16 at 21:35; Stop 11/11/16 at 22:04; Status DC Sodium Chloride 1,000 ml @ 100 mls/hr Q10H IV Last administered on 11/12/16 11:30; Start 11/12/16 at 01:30 Metronidazole/ Sodium Chloride 500 mg/Premix 100 ml @ 200 mls/hr Q8H IV Last administered on 11/12/16 14:59; Start 11/12/16 at 07:00 Cefepime HCl 2000 mg/Dextrose/Water 50 ml @ 12.5 mls/hr Q8H IV Last administered on 11/12/16 17:47; Start 11/12/16 at 02:00 Levetriacetam/ Dextrose/Water (Keppra Inj/D5W) 105 ml @ 420 mls/hr BID IV Last administered on 11/12/16 08:07; Start 11/12/16 at 01:50 Amlodipine Besylate (Norvasc) 5 mg DAILY PO Last administered on 11/12/16 14: 59; Start 11/12/16 at 14:40 Metoprolol Tartrate (Lopressor) 50 mg BID PO Last administered on 11/12/16 14: 59; Start 11/12/16 at 14:40 Labs Test 11/11/16 20:45 11/11/16 22:34 11/12/16 02:23 11/12/16 04:30 Magnesium Level 1.8mg/dL (1.6-2.6) Lipase 18U/L (13-60) Urine Color [place] (YELLOW) Urine Appearance Hazy (CLEAR,HAZY) Urine pH 5.0 (5.0-8.0) Urine Specific [place] 1.030 (1.003-1.035) Urine Protein 100mg/dL (NEG,TRACE) Urine Glucose (UA) Negativemg/dL (NEGATIVE) Urine Ketones Tracemg/dL (NEGATIVE) Urine Occult Blood Large (NEGATIVE) Urine Nitrite Negative (NEGATIVE) Urine Bilirubin Moderate (NEGATIVE) Urine Ictotest Positive (Negative) Urine Urobilinogen 1.0mg/dL (NORMAL) Urine Leukocyte Esterase Negative (NEGATIVE) Urine RBC 3-10/hpf (0-2) Urine WBC 0-5/hpf (0-5) Urine Epithelial Cells Few/hpf (NONE-MOD) Urine Crystals None seen (NONE SEEN) Urine Bacteria Few/hpf (NONE-FEW) Urine Hyaline Casts Occasional/lpf (NONE) Urine Granular Casts None seen (NONE SEEN) Urine Waxy Casts None seen (NONE SEEN) Urine Red Blood Cell Casts None seen (NONE SEEN) Urine White Blood Cell Casts None seen (NONE SEEN) Urine Mucus Present (None Seen) Urine Trichomonas None seen (NONE SEEN) Urine Yeast None (NONE SEEN) Urinalysis Comment None Urine Culture Reflexed Not indicated White Blood Count 23.4th/mm3 (3.8-10.1) Red Blood Count 4.76mil/mm3 (4.40-5.80) Hemoglobin 14.0g/dL (13.8-17.2) Hematocrit 40.0% (41.0-50.0) Mean Corpuscular Volume 84.0fL (81-100) Mean Corpuscular Hemoglobin 29.4pg (27.0-35.0) Mean Corpuscular Hemoglobin Concent 35.0% (32.0-37.0) Red Cell Distribution Width 13.2% (12.3-15.4) Neutrophils (%) (Auto) 82.9% (40-74) Lymphocytes (%) (Auto) 5.8% (14-46) Monocytes (%) (Auto) 10.6% (4-12) Eosinophils (%) (Auto) 0% (0-5) Basophils (%) (Auto) 0.2% (0-3) Sodium Level 138mEq/L (134-144) Potassium Level 3.9mEq/L (3.5-5.2) Chloride Level 102mEq/L (97-108) Carbon Dioxide Level 22mmol/L (18-29) Blood Urea Nitrogen 15mg/dL (8-27) Creatinine 1.01mg/dL (0.76-1.27) Estimat Glomerular Filtration Rate 77mL/min (>59) Glucose Level 115mg/dL (60-99) Calcium Level 8.0mg/dL (8.5-10.1) Total Bilirubin 4.4mg/dL (0.0-1.2) Aspartate Amino Transf (AST/SGOT) 488U/L (0-50) Alanine Aminotransferase (ALT/SGPT) 465U/L (0-44) Alkaline Phosphatase 97U/L (25-160) Total Protein 6.7g/dL (6.4-8.4) Albumin 3.4g/dL (3.4-5.0) Test 11/12/16 10:26 11/12/16 13:11 Platelet Count 262bil/L (150-400) Prothrombin Time 13.2sec (8.1-12.5) Prothromb Time International Ratio 1.23ratio Activated Partial Thromboplast Time 30.6sec (22.8-33.0) Hepatitis C Comment . Lactic Acid Level 2.3mmol/L (0.4-2.0) Plan Impression Patient chart reviewed, patient interviewed and anesthestic plan with risks, benefits, and alternatives discussed, and informed consent obtained. NPO per Anesth. Guidelines: Yes ASA Physical Status: ASA3 Severe Disease Anesthetic Plan: GA Bene/Risks/Altern/Consents: Yes HP Complete Prior to Induction: Yes Austin Gonzales MD Nov 12, 2016 19:13
[2016-11-12] MEDS ORDERED: Iopamidol-300 50 mL Inj IV ONE (20:55)
--- NOTE | 2016-11-12 22:14 | PCM.SURGPO ---
Immediate Operative Note Date of Surgery: Nov 12, 2016 Pre Operative Diagnosis Acute Cholecystitis Post Operative Diagnosis Acute Cholecystitis Procedure Laparoscopic Cholecystectomy with Cholangiogram Surgeon and Office Rental Clerk Surgeon: Samantha Norwood MD Assistants: Jung Isaac PAC Findings Normal Cholangiogram, Obvious Cholecystitis Complications There were no periprocedural complications identified. Surgical Specimen Removed: Yes Specimen sent to Pathology: Yes Anesthetic Administered: GA Grafts, Implants: None Output, Estimated Blood Loss: 2 Blood Admin during surgery: No Attending Statement Hammer Operator listed was medically necessary for the successful completion of the case Samantha Norwood MD Nov 12, 2016 22:14
[2016-11-12 22:19] LABS: APPEARANCE,URINE SLIGHTLY CLOUDY (CLEAR,HAZY); COLOR,URINE ORANGE (YELLOW)
[2016-11-12 22:20] LABS: OCCULT BLOOD,URINE COLOR INTERFERENCE (NEGATIVE); PH,URINE COLOR INTERFERENCE (5.0-8.0); UROBILINOGEN,URINE COLOR INTERFERENCE mg/dL (NORMAL)
--- NOTE | 2016-11-12 22:20 | DRSVH ---
PROCEDURE: X-RAY OPERATIVE CHOLANGIOGRAM ([id number]) INDICATIONS: LAP TRINA W GRAMS COMPARISON: None. FINDINGS: Biliary ducts: The surgeon injected contrast into the biliary ducts after cannulation of the cystic duct stump. Visualized intra- and extrahepatic bile ducts are normal in caliber, without strictures. No intraluminal filling defects to suggest retained ductal stones or sludge. No evidence for iatro genic ductal injury. Duodenum: Contrast flows promptly through the sphincter of Oddi into the duodenum, which appears nor mal in caliber. IMPRESSION: Normal intraoperative cholangiogram. Dictated by: Pedro Pablo Cervantes M.D. on 11/12/2016 at 22:17 Approved by: Pedro Pablo Cervantes M.D. on 11/12/2016 at 22:18
--- NOTE | 2016-11-12 22:28 | PCM.ANEP1 ---
Post Anesthesia PACU Phase 1 Assessment Date of Service: Nov 12, 2016 Vital Signs Vital Signs Date Time Temp Pulse Resp B/P Pulse Ox O2 Delivery O2 Flow Rate FiO2 11/12/16 22:20 96 21 125/80 92 Non-Rebreather 10 11/12/16 22:15 36.3 109 20 121/95 95 Non-Rebreather 10 11/12/16 22:10 102 23 134/67 93 Non-Rebreather 10 11/12/16 22:05 95 23 106/81 91 Non-Rebreather 10 11/12/16 22:00 97 20 121/75 93 Non-Rebreather 10 11/12/16 21:55 95 22 116/67 92 Non-Rebreather 10 11/12/16 21:53 37.2 90 25 127/66 92 Non-Rebreather 10 11/12/16 17:01 36.5 97 18 127/67 93 Room Air Anesthetic Administered: GA Level of Alertness: Sleepy, easy to arouse MYERS's with Equal Strength: Yes Pain: No Nausea or Vomiting: No CV Function & Hydration Stable: Yes Airway Device: Oxygen Delivery: Non-Rebreather Mask Lungs: Normal Air Movement Dermatome Level: Full Sensation PACU Phase 2 Assessment Complications: No Follow up Care: N/A Patient Instructions Provided: N/A Austin Gonzales MD Nov 12, 2016 22:28
--- NOTE | 2016-11-12 22:39 | NUR ---
Pt to OR at 1920
--- NOTE | 2016-11-12 22:50 | OP ---
[address] [address] OPERATIVE REPORT PATIENT: ZEB BEARD : 1940 MR#: [id number] ADMIT: 11/12/2016 JOB ID: [id number] DATE OF SURGERY: 11/12/2016 PREOPERATIVE DIAGNOSIS(ES): Acute cholecystitis. POSTOPERATIVE DIAGNOSIS(ES): Acute cholecystitis. PROCEDURE PERFORMED: Laparoscopic cholecystectomy with intraoperative cholangiogram. SURGEON: Samantha Norwood MD. CANCER RESEARCHER: LORIN Woods. INDICATIONS: The patient is a 76-year-old gentleman who came to the emergency room yesterday with right-sided abdominal pain and vomiting. He was found to have elevated liver function studies and a CT scan concerning for cholecystitis, but ultrasound was thought to have normal gallbladder wall thickness. Dr. Wright was consulted and he suggested a surgical consultation. MRCP confirmed the diagnosis of cholecystitis and did not show any biliary ductal dilatation. He has been off his anticoagulation for two days due to his nausea and vomiting. After discussing the risks, benefits, and alternatives, he is brought to the operating room for laparoscopic cholecystectomy with cholangiogram. PROCEDURE DETAILS: He was placed in supine position. Underwent smooth induction of general anesthesia. Abdomen was prepped and draped in the usual sterile fashion. Surgical time-out was undertaken using safety checklist, and all were in agreement. We began by making a supraumbilical incision, entered the abdomen using open Aurora technique. We up sized a 5 mm port to a 12 after obtaining pneumoperitoneum and then placed three 5 mm ports, one in the epigastrium and two in the right upper quadrant. We then retracted the gallbladder cephalad and to the right, but in the process ended up leaking some bile from the gallbladder. I then dissected the omentum off the gallbladder and mobilized the duodenum down, which was also stuck to the gallbladder. I then dissected the triangle of Calot anteriorly and posteriorly, and identified the cystic artery and divided it between clips and then clipped the cystic duct on the specimen side and obtained a cholangiogram. Did not show any obvious filling defects and contrast flowed down into the duodenum. I then clipped the cystic duct doubly on the patient's side and then divided it. I then dissected the rest of the gallbladder off the liver bed with good hemostasis and placed it in an EndoCatch bag. I then irrigated and suctioned out all the fluid from the right upper quadrant and, after ensuring hemostasis, I removed the EndoCatch bag along with the gallbladder through the umbilical port site and de-evacuated the pneumoperitoneum, removed the ports, and closed the umbilical port fascia with [id number] 0-Vicryl suture. Skin was reapproximated with 4-0 Monocryl. Steri-Strips and sterile dressing were applied. Patient was recovered from anesthesia and was taken to the recovery room in a stable condition.
--- NOTE | 2016-11-12 23:46 | NUR ---
Pt arrived from PACU at 2240, confused, pulling on lines, unable to redirect pt. Report given to oncoming GLENN Del Castillo.
[2016-11-13] VITALS (9 sets, daily range): BP systolic 116–147; BP diastolic 63–90; PULSE 79–113; RESP 16–20; O2SAT 90–93
[2016-11-13] MEDS: metroNIDAZOLE Inj 500 MG in IV Premix 1 EACH IV SCH ×3 (00:06→14:41)
[2016-11-13] MEDS: Cefepime Inj 2,000 MG in Dextrose 5% Minibag Plus 50 ML IV SCH ×3 (02:35→17:53)
[2016-11-13 02:58] LABS: APPEARANCE,URINE CLEAR (CLEAR,HAZY); COLOR,URINE DARK YELLOW (YELLOW)
[2016-11-13 02:59] LABS: OCCULT BLOOD,URINE MODERATE (NEGATIVE)
[2016-11-13 03:00] LABS: ICTOTEST,URINE POSITIVE (Negative)
--- NOTE | 2016-11-13 05:08 | NUR ---
Pain/Mentation Assumed care ~2315. Patient recently received from PACU post-operatively. Pt. disoriented, agitated, trying to get oob, and expressing verbalized aggression. MD (Monica) informed and order received for pain and anxiety management, prn. Pt. had settle periods, and rested with eyes closed. When approached for care, patient aggressive and combative. Noted grimacing and clutching when observed, FELDT score of 6 - BP elevated from baseline. Medicated with 2mg of Morphine for s/s of pain. Does not verbalize needs. Will continue to monitor for pain needs and orientation. Report given to oncoming RN.
[2016-11-13] MEDS: 0.9% Sodium Chloride 1,000 ML IV SCH (05:43)
--- NOTE | 2016-11-13 08:04 | PCM.PNMED ---
Subjective Date of Service Nov 13, 2016 Subjective overnight: Patient returned from surgery no acute events otherwise noted. Today: Patient continues to have mild abdominal pain made worse with deep inspiration. The patient denies chest pain or shortness of breath. No nausea or vomiting. Exam Vital Signs Vital Sign - Last Date Time Temp Pulse Resp B/P Pulse Ox O2 Delivery O2 Flow Rate FiO2 11/13/16 06:06 90 11/13/16 05:01 Supplement Oxygen 11/13/16 03:40 36.6 16 147/82 93 2.00 Intake and Output 11/12/16 11/12/16 11/13/16 Cumulative From/Thru 15:00 23:00 07:00 11/11/16 18:48 - 11/13/16 05:01 Intake Total 2690 ml 926 ml 5616 ml Output Total 177 ml 550 ml 877 ml Balance 2513 ml 376 ml 4739 ml Intake Oral 0 ml 0 ml 0 ml IV Total 2690 ml 926 ml 5616 ml Output Urine Total 175 ml 550 ml 875 ml Emesis 0 ml Estimated Blood Loss 2 ml 2 ml # Voids 1 2 Exam General: Senior male lying quietly in bed Eyes: Pupils equal round and reactive to light, extraocular motion intact, anicteric sclera, noninjected conjunctiva HENT: Normocephalic atraumatic, moist mucous membranes without central cyanosis , oropharynx clear without purulent exudate or cobblestoning mucosa Neck: Supple, trachea midline, without thyromegaly or JVD Cardiovascular: Regular rate and regular rhythm, S1-S2 present, no S3-S4, without murmurs rubs or gallops noted Lungs: Clear to auscultation bilaterally without wheezing rales or rhonchi Abdomen: Soft, tender to palpation specifically in right upper quadrant and overlying port incisions, incision sites without erythema or serosanguineous drainage, nondistended, tympanic to percussion, normal active bowel sounds, without organomegaly Extremities: No cyanosis clubbing or edema noted, pulses intact bilaterally at dorsalis pedis and radial : No Luther catheter in place Skin: Warm and dry Neuro: Nonfocal neurologic exam Psych: Normal mood and affect, Alert and cooperative but not oriented Lab and Diagnostics Result Diagram: 11/12/16 1026 11/12/16 0430 X-Rays, CTs and MRIs CT ABDOMEN AND PELVIS WITH CONTRAST IMPRESSION: 1. Cholelithiasis. There is mild gallbladder wall thickening with trace pericholecystic fluid and stranding suspicious for acute cholecystitis. 2. A 1.3 cm enhancing nodule in the posterior segment of the right hepatic lobe near the hepatic dome, unchanged. 3. Bilateral renal cysts. No significant discrepancy with the overnight cashier radiology preliminary report. Approved by: Pedro Pablo Cervantes M.D. on 11/12/2016 at 10:09 US ABDOMEN, LIMITED IMPRESSION: Cholelithiasis and mild common bile duct dilation. No gallbladder wall thickening, pericholecystic fluid collection or sonographic Slater sign. If clinical symptoms persist or clinical suspicion for pathology is high, MRCP is suggested for further evaluation. No significant discrepancy with the overnight cashier radiology preliminary report. Approved by: Pedro Pablo Cervantes M.D. on 11/12/2016 at 12:08 MR ABDOMEN MRCP IMPRESSION: Acute cholecystitis with associated gallbladder wall thickening and mild pericholecystic fluid/edema. Cholelithiasis. Motion degraded examination. Bilateral renal cysts. Approved by: Ramses Bravo M.D. on 11/12/2016 at 16:28 X-RAY OPERATIVE CHOLANGIOGRAM IMPRESSION: Normal intraoperative cholangiogram. Approved by: Pedro Pablo Cervantes M.D. on 11/12/2016 at 22:18 Assessment & Plan Mr. Freeman is a 76-year-old gentleman with a history of hypertension, atrial fibrillation, dementia, CVA with development of aphasia, seizures, and right hemiparesis, that presented to the emergency department with complaints of a one day history of vomiting and associated abdominal pain. Initial evaluation revealed an elevated lactic acid 5.0, white count 29.2, and stat imaging revealed extrahepatic bile duct dilatation suggestive of choledocholithiasis. He is admitted for evaluation and treatment of sepsis secondary to choledocholithiasis and resultant cholangitis. Sepsis secondary to acute cholecystitis, acute, present on admission, under evaluation - Likely secondary to choledocholithiasis, resultant cholangitis - on admit: WBC 29.2, lactic acid 5.0 - Initial antibiotics: Metronidazole, ceftriaxone - Current antibiotics: Cefepime plus metronidazole - Leukocytosis continues to improve after cholecystectomy and antibiotics Acute cholecystitis, present on admission, under evaluation - CT and ultrasound revealed extrahepatic bile duct dilatation, 7.7 mm in diameter - GI consulted, consult order has been placed, we appreciate their input, they will see patient this afternoon - MRCP shows Acute cholecystitis with associated gallbladder wall thickening and mild pericholecystic fluid/edema. - Laparoscopic cholecystectomy performed by Dr. Norwood on 11/12/2016 - Okay to initiate DVT prophylaxis 24 hours after surgery Elevated liver function tests, acute, present on admission, under evaluation -On admission: LFTs significantly elevated with total bilirubin 4.1, AST 811, ALT 499, alkaline phosphatase 107 -Today, bilirubin 4.4, AST 488, ALT 465, alkaline phosphatase 97, INR 1.2 -Hold atorvastatin and fluconazole -Ordered hepatitis panel still pending Acute delirium on chronic dementia, present on admission, under evaluation -Patient has dementia at baseline and is more alert and awake today - Likely secondary to sepsis resulting from choledocholithiasis and resultant cholangitis - Treat underlying infection History of multiple CVA with resultant encephalopathy, aphasia, seizures, and right hemiparesis, chronic, presumed stable - Resume home medications and appropriate - Keppra IV 500 mg twice daily was initiated, as patient is nothing by mouth, and with severe infection, and concurrent antibiotic use, seizure threshold is likely lower - Keppra levels normal Hypertension, chronic, presumed stable - Continue home dose metoprolol and amlodipine Atrial fibrillation, chronic, ongoing -Per telemetry, rate has been in the 80s to 100s -Continue home dose of metoprolol Hyperlipidemia, chronic, ongoing -Hold atorvastatin because of elevated LFTs DVT: Hep q8 GI: H2B Code: DNR/DNI Disposition: Patient will likely be discharged within the next 1-2 days depending on ongoing delirium GI Prophylaxis: H2 mukul VTE Prophylaxis: Sub-Q Heparin (Unfractionated) VTE Mechanical Devices: Intermittant Pneumatic CD Resuscitation Status: DNR/DNI:Do Not Resuscitate/Intubate Time spent 25 minutes Attending Statement I have seen and evaluated patient at bedside in addition to directly supervising care provided by resident physician Dr Keyes on 11/13/2016. I agree with above documentation. Dave Keyes DO Nov 13, 2016 08:04 Pro Sumner DO Nov 14, 2016 07:26 Dave Keyes DO Nov 13, 2016 08:04
[2016-11-13] MEDS: Fluticasone 0.05% 15 Spray/2 Gm 16 Gm Nasal Spray NOSTRIL SCH (08:30)
[2016-11-13 09:22] LABS: Mean Corpuscular Hemoglobin 29.1 pg (27.0-35.0); Mean Corpuscular Volume 87.9 fL (81-100)
[2016-11-13 09:23] LABS: BASOPHILS % (AUTO) 0.3 % (0-3); EOSINOPHILS % (AUTO) 0 % (0-5); MONOCYTES % (AUTO) 9.7 % (4-12); NEUTROPHILS % (AUTO) 82.4 % (40-74); Platelet Count 192 bil/L (150-400)
--- NOTE | 2016-11-13 11:27 | PCM.PNSURG ---
Subjective Date of Service: Nov 13, 2016 Visit Information: Cholelithiasis Lap Zully with IOC 11/12/2016 Post-Op Day # 1 Date of Admission: Nov 12, 2016 at 00:52 Hospital Day # 2 Subjective: Confused overnight Objective Vital Sign- Last 8 Hours Date Time Temp Pulse Resp B/P Pulse Ox O2 Delivery O2 Flow Rate FiO2 11/13/16 10:27 113 11/13/16 08:46 36.5 86 16 125/89 93 Nasal Cannula 1.00 11/13/16 06:06 90 11/13/16 05:01 Supplement Oxygen 11/13/16 03:40 36.6 79 16 147/82 93 OxyMask 2.00 Intake and Output- Last 8 Hour 11/13/16 Cumulative From/Thru 07:00 11/11/16 18:48 - 11/13/16 05:01 Intake Total 926 ml 5616 ml Output Total 550 ml 877 ml Balance 376 ml 4739 ml Intake Oral 0 ml 0 ml IV Total 926 ml 5616 ml Output Urine Total 550 ml 875 ml Emesis 0 ml Estimated Blood Loss 2 ml # Voids 2 Abdomen: Soft, Other (dressings dry) Result Diagram: 11/13/16 0826 11/13/16 0826 Assessment & Plan Impression Doing well Problems: Plan Regular diet Follow LFTs Discharge Planning Okay to start anticoagulation 24 hrs postop Samantha Norwood MD Nov 13, 2016 11:27
--- NOTE | 2016-11-13 15:08 | NUR ---
Social Work: Attempted Initial Assessment/Multidisciplinary Rounds D: EMR reviewed. Pt is a 76 y/o male - readmit risk score of 6 - admitted [place] for choledocolithiasis per H&P. Pt discussed in multidisciplinary rounds and is not an appropriate historian due to dx of Dementia. SW left voicemail requesting return call from spouse Alicia. A: Pt who has Dementia at baseline P: SW to contact spouse for assessment. VICKY Calix
--- NOTE | 2016-11-13 15:54 | PCM.PNMED ---
Subjective Date of Service Nov 13, 2016 Subjective offers no complaints states he is well events overnight noted Exam Vital Signs Vital Sign - Last Date Time Temp Pulse Resp B/P Pulse Ox O2 Delivery O2 Flow Rate FiO2 11/13/16 13:18 82 16 122/78 90 Nasal Cannula 2.00 11/13/16 08:46 36.5 Intake and Output 11/12/16 11/12/16 11/13/16 Cumulative From/Thru 15:00 23:00 07:00 11/11/16 18:48 - 11/13/16 05:01 Intake Total 2690 ml 926 ml 5616 ml Output Total 177 ml 550 ml 877 ml Balance 2513 ml 376 ml 4739 ml Intake Oral 0 ml 0 ml 0 ml IV Total 2690 ml 926 ml 5616 ml Output Urine Total 175 ml 550 ml 875 ml Emesis 0 ml Estimated Blood Loss 2 ml 2 ml # Voids 1 2 Exam GEN- sitting on the side of the bed ABdomen- soft and benign dressings dry Lab and Diagnostics Result Diagram: 11/13/1682511/13/16 08 X-Rays, CTs and MRIs CT ABDOMEN AND PELVIS WITH CONTRAST IMPRESSION: 1. Cholelithiasis. There is mild gallbladder wall thickening with trace pericholecystic fluid and stranding suspicious for acute cholecystitis. 2. A 1.3 cm enhancing nodule in the posterior segment of the right hepatic lobe near the hepatic dome, unchanged. 3. Bilateral renal cysts. No significant discrepancy with the slot shift manager radiology preliminary report. Approved by: Pedro Pablo Cervantes M.D. on 11/12/2016 at 10:09 US ABDOMEN, LIMITED IMPRESSION: Cholelithiasis and mild common bile duct dilation. No gallbladder wall thickening, pericholecystic fluid collection or sonographic Slater sign. If clinical symptoms persist or clinical suspicion for pathology is high, MRCP is suggested for further evaluation. No significant discrepancy with the slot shift manager radiology preliminary report. Approved by: Pedro Pablo Cervantes M.D. on 11/12/2016 at 12:08 MR ABDOMEN MRCP IMPRESSION: Acute cholecystitis with associated gallbladder wall thickening and mild pericholecystic fluid/edema. Cholelithiasis. Motion degraded examination. Bilateral renal cysts. Approved by: Ramses Bravo M.D. on 11/12/2016 at 16:28 X-RAY OPERATIVE CHOLANGIOGRAM IMPRESSION: Normal intraoperative cholangiogram. Approved by: Pedro Pablo Cervantes M.D. on 11/12/2016 at 22:18 Assessment & Plan Acute Cholecystitis S/P Lap Zully -post op care as per surgery team Elevated LFT's -improving, continue to follow trend. GI Prophylaxis: H2 mukul VTE Mechanical Devices: Intermittant Pneumatic CD Tyrone Wright MD Nov 13, 2016 15:54
--- NOTE | 2016-11-13 18:27 | NUR ---
Confusion/Pain/SPO2 Cardiac: Pt reported some pounding chest pain once following coughing fit. Pain started in abdomen and moved up to his chest, low mid sternum. Pain resolved in a few minutes with no intervention. No other complaints of chest pain. Tele: afib 90-100. 11 beats of vtach at 12:25. Resp: Pt denies SOB, O2 titrated down from 4L oxymask to 1L NC. SPO2 96% on 1L. titrated further to RA. SPO2 maintains around 90%. Continuous pulse ox in room for when pt asleep. GI/: Pt denies n/v, Neuro: A&Ox1 this morning, self only, did not remember age. Pt is intermittently confused throughout shift, worse this evening. Pt able to be reoriented most of the time even up to A&Ox3. Pt's reports that being disoriented is not normal for him, she reports that he does have a history of being short tempered.
[2016-11-14] MEDS ORDERED: Heparin 5,000 Unit/mL Inj SUBQ SCH (00:30)
[2016-11-14] MEDS: metroNIDAZOLE Inj 500 MG in IV Premix 1 EACH IV SCH ×3 (01:08→15:43)
[2016-11-14] MEDS: Cefepime Inj 2,000 MG in Dextrose 5% Minibag Plus 50 ML IV SCH ×2 (02:15→10:11)
[2016-11-14 03:03] LABS: BASOPHILS % (AUTO) 0.8 % (0-3); EOSINOPHILS % (AUTO) 0.5 % (0-5); Mean Corpuscular Hemoglobin 29.2 pg (27.0-35.0); Mean Corpuscular Volume 87.9 fL (81-100); NEUTROPHILS % (AUTO) 79.2 % (40-74); Platelet Count 185 bil/L (150-400)
[2016-11-14 03:11] VITALS: BP 154/74; PULSE 83; RESP 16; O2SAT 91
--- NOTE | 2016-11-14 06:28 | NUR ---
Pain/Rest/Sp02 Pt. c/o abdominal pain intermittently, Ketorolac 30mg given. With good resolve, able to rest with eyes closed for extended periods. Spo2 decreased to 84-86% while resting, placed on 2L via oxy mask (refused NC) with increase of Spo2 to 95%. Disorientation, agitation and confusion when first wakes, with periods of aggression when try to implement care. Incontinent of urine this shift, bedding change and brief placed. IV line infiltrated in L FA, restart to R AC, patent without leaks. VSS. Tele: AFib 90's -100.
[2016-11-14 07:08] LABS: Hepatitis A Antibody IgM Negative (Negative); Hepatitis B Core Antibody IgM Negative (Negative)
[2016-11-14] MEDS: Fluticasone 0.05% 15 Spray/2 Gm 16 Gm Nasal Spray NOSTRIL SCH ×2 (08:30→10:01)
[2016-11-14 08:55] VITALS: BP 128/78; PULSE 89; RESP 18; O2SAT 92
[2016-11-14] MEDS: levETIRAcetam 500 mg Tablet PO SCH ×2 (10:02→11:30)
[2016-11-14] MEDS: Dabigatran 150 mg Capsule PO SCH ×2 (10:03→11:30)
[2016-11-14 10:34] VITALS: PULSE 78
--- NOTE | 2016-11-14 10:37 | NUR ---
Social Work: Initial Assessment/Multidisciplinary rounds D: Per EMR review, pt is a 76 year old male admitted on 11/12/16. Pt is [facility] with Medicare; pt has no LTC or VA benefits. PCP is Rebeca Figueroa DO. NOK is Alicia [facility], . Advanced directives completed- [employer]ISHER [employer] requested copy for chart. Readmit score is high, 6/8. Pt discussed in Multidisciplinary rounds. Capacity for self care addressed; no concerns at this time as pt lives at home with his . Provider is considering ordering HH for the patient for discharge if the patient is agreeable. [employer] met with the the patient and patient's at bedside. Sw role explained, contact info and d/c planning checklist provided. See initial assessment. Most of the information for assessment gathered from as pt has some cognitive deficits from a previous stroke, according to spouse. Pt and live in [place] in a multi-level home. Pt lives on the main story and does not ambulate stairs. Pt uses a FWW occasionally but often does not require the use of it as "he is stable on his feet." states that the patient has a history at [facility] for rehab and a brief history with [facility] for RN and PT. She states that the patient did not find it helpful and "his ego got in the way" and declined to participate. Pt was discharged from services and is not sure if the patient will be agreeable for these services if recommended. Pt does not drive but is able to ambulate I and complete his own ADLs including help with grocery shopping and cleaning. anticipates taking the patient home with no social work needs but is agreeable to discharge planning if needs arise. A: Pt who lives at home with his spouse and is I at baseline with ADLs and ambulation; requires assistance from spouse for supervision due to cognitive deficits. P: Anticipate pt to discharge home via POV once medically stable; [employer] to continue to follow to assess for discharge needs. VICKY Thomas Addendum: 11/14/16 at 1050 by CHASE WATTS SS Amended: Links added.
--- NOTE | 2016-11-14 11:58 | PCM.PNMED ---
Subjective Date of Service Nov 14, 2016 Subjective GASTROENTEROLOGY PROGRESS NOTE: Attending Physician: Tyrone Wright MD Resident Physician: Rukhsana Rios DO No acute events overnight. This morning patient is quite confused and agitated. He states that nobody will answer his questions and he does not understand why he is here. He repeatedly requests to leave and expresses extreme frustration with the answers he is given. Complete review of systems is limited secondary to patient condition and cooperation. However he denies fever, chills, abdominal pain, nausea or vomiting. He reports tremors and restlessness in his feet and hands bilaterally. He states that this has been going on for two years or more and nobody will tell him what is causing this. Exam Vital Signs Vital Sign - Last Date Time Temp Pulse Resp B/P Pulse Ox O2 Delivery O2 Flow Rate FiO2 11/14/16 08:55 36.4 89 18 128/78 92 Room Air 11/13/16 13:18 2.00 Intake and Output 11/13/16 11/13/16 11/14/16 Cumulative From/Thru 14:59 22:59 06:59 11/11/16 18:48 - 11/14/16 06:22 Intake Total 2116 ml 470 ml 8202 ml Output Total 400 ml 125 ml 1402 ml Balance 1716 ml 345 ml 6800 ml Intake Oral 640 ml 0 ml 640 ml IV Total 1476 ml 470 ml 7562 ml Output Urine Total 400 ml 125 ml 1400 ml Emesis 0 ml Estimated Blood Loss 2 ml # Voids 3 5 Exam Exam limited secondary to patient cooperation and agitation. General: Elderly male sitting up at the side of bed, appears agitated and is verbally abusive to staff. HEENT: Normocephalic, atraumatic. Mucous membranes moist/pink Chest and Lungs: Patient refused my exam. Abdomen: Patient refused my exam. Per nursing's most recent assessment: abdomen is soft and appropriately tender s/p lap cholecystectomy with hypoactive bowel tones. Extremities: No edema. Skin: No obvious rashes or ulcerations Neurological: Alert and oriented to person and somewhat to place in that he knows he is a hospital but does not know where or why. No focal neurologic deficit. Normal speech Psychiatric: Agitated and defensive. IVs and Medications Medications Reviewed: Medications were reviewed in detail Lab and Diagnostics Laboratory Tests Test 11/14/16 01:52 White Blood Count 11.8th/mm3 (3.8-10.1) Red Blood Count 4.21mil/mm3 (4.40-5.80) Hemoglobin 12.3g/dL (13.8-17.2) Hematocrit 37.0% (41.0-50.0) Mean Corpuscular Volume 87.9fL (81-100) Mean Corpuscular Hemoglobin 29.2pg (27.0-35.0) Mean Corpuscular Hemoglobin Concent 33.2% (32.0-37.0) Red Cell Distribution Width 13.3% (12.3-15.4) Platelet Count 185bil/L (150-400) Neutrophils (%) (Auto) 79.2% (40-74) Lymphocytes (%) (Auto) 8.2% (14-46) Monocytes (%) (Auto) 10.0% (4-12) Eosinophils (%) (Auto) 0.5% (0-5) Basophils (%) (Auto) 0.8% (0-3) Band Neutrophils % 1% (1-5) Sodium Level 141mEq/L (134-144) Potassium Level 4.0mEq/L (3.5-5.2) Chloride Level 108mEq/L (97-108) Carbon Dioxide Level 21mmol/L (18-29) Blood Urea Nitrogen 16mg/dL (8-27) Creatinine 1.00mg/dL (0.76-1.27) Estimat Glomerular Filtration Rate 78mL/min (>59) Glucose Level 92mg/dL (60-99) Calcium Level 7.9mg/dL (8.5-10.1) Total Bilirubin 2.0mg/dL (0.0-1.2) Aspartate Amino Transf (AST/SGOT) 61U/L (0-50) Alanine Aminotransferase (ALT/SGPT) 185U/L (0-44) Alkaline Phosphatase 137U/L (25-160) Total Protein 5.3g/dL (6.4-8.4) Albumin 2.9g/dL (3.4-5.0) Lipase 12U/L (13-60) Microbiology 11/11/16 Blood Culture - No growth at 2 days Result Diagram: 11/14/16 0152 11/14/16 0152 X-Rays, CTs and MRIs 11/12/16 - CT ABDOMEN AND PELVIS WITH CONTRAST MPRESSION: 1. Cholelithiasis. There is mild gallbladder wall thickening with trace pericholecystic fluid and stranding suspicious for acute cholecystitis. 2. A 1.3 cm enhancing nodule in the posterior segment of the right hepatic lobe near the hepatic dome, unchanged. 3. Bilateral renal cysts.m Approved by: Pedro Pablo Cervantes M.D. on 11/12/2016 at 10:09 11/12/16 - US ABDOMEN, LIMITED IMPRESSION: Cholelithiasis and mild common bile duct dilation. No gallbladder wall thickening, pericholecystic fluid collection or sonographic Slater sign. If clinical symptoms persist or clinical suspicion for pathology is high, MRCP is suggested for further evaluation. Approved by: Pedro Pablo Cervantes M.D. on 11/12/2016 at 12:08 11/12/16 - MR ABDOMEN MRCP IMPRESSION: - Acute cholecystitis with associated gallbladder wall thickening and mild pericholecystic fluid/edema. - Cholelithiasis. - Motion degraded examination. - Bilateral renal cysts. Approved by: Ramses Bravo M.D. on 11/12/2016 at 16:28 11/12/16 - X-RAY OPERATIVE CHOLANGIOGRAM IMPRESSION: Normal intraoperative cholangiogram. Approved by: Pedro Pablo Cervantes M.D. on 11/12/2016 at 22:18 . Assessment & Plan 76-year-old gentleman with a history of dementia, hypertension, atrial fibrillation, CVA with subsequent aphasia, seizures, and right hemiparesis who presented to the ED with a one day history of abdominal pain and vomiting. Admitted for valuation and treatment of sepsis secondary to choledocholithiasis and resultant cholangitis. Acute cholecystitis s/p Laparoscopic cholecystectomy. -On admission: LFTs significantly elevated. CT and ultrasound revealed extrahepatic bile duct dilatation. MRCP shows acute cholecystitis with associated gallbladder wall thickening and mild pericholecystic fluid/edema. -LFTs continue to improve -Hepatitis panel negative -Laparoscopic cholecystectomy performed by Dr. Norwood on 11/12/2016 -Continue to monitor LFTs -Continue post-op care as per surgery team Additional problems managed per primary medicine team: - Sepsis secondary to acute cholecystitis, acute - Acute delirium on chronic dementia - History of multiple CVA with resultant encephalopathy, aphasia, seizures, and right hemiparesis, chronic - Hypertension, chronic - Atrial fibrillation, chronic - Hyperlipidemia, chronic . GI Prophylaxis: H2 mukul VTE Mechanical Devices: Intermittant Pneumatic CD Resuscitation Status: DNR/DNI:Do Not Resuscitate/Intubate Attending Statement pt seen and examined agree with resident physician note above Rukhsana Rios DO Nov 14, 2016 09:05 Tyrone Wright MD Nov 23, 2016 19:03
--- NOTE | 2016-11-14 14:56 | NUR ---
Evaluation completed. Please go to "Notes" then click on "Assessments and Notes" (bottom left corner of screen). Then select appropriate discipline tab on top of screen.
--- NOTE | 2016-11-14 16:04 | PCM.DISURG ---
Stephenie Nieves 11/14/16 1604: Surgical Discharge Instruction Date of Service Nov 14, 2016 Dates of Hospitalization Date of Hospital Admission Nov 12, 2016 at 00:52 Providers Admitting Physician: Contreras Pena MD Primary Care Physician: Henry Jose DO Attending Physician: Andre Saxena MD Discharge Diagnosis Discharge Diagnosis Acute cholecystitis status post laparoscopic cholecystectomy Sepsis secondary to acute cholecystitis Elevated liver function tests, improving Acute delirium on chronic dementia History of multiple CVA with resultant encephalopathy, aphasia, seizures, right hemiparesis Hypertension Atrial fibrillation Hyperlipidemia Post Operative diagnosis Acute Cholecystitis Diet Discharge Diet: Low Sodium Activity Discharge Activity-General: Activity as pain allows Dressing and Incisional Care Dressing Care: Keep dressing clean, dry & intact Dressing Instructions: let the steri strips fall out in about 10 days. If not, you can remove them Hygiene: May shower Additional Instructions Discharge Instructions You came into the hospital with vomiting and abdominal pain. We did various tests, we found that your gallbladder was inflamed and you had stones in your gallbladder. Your liver enzymes were also elevated but your hepatitis panel was negative . He underwent Laparoscopic cholecystectomy performed by Dr. Norwood on 11/12/2016. We gave the antibiotics. This helped with your pain, lowered your liver enzymes, and helped with the inflammation. We stopped your fluconazole, which you are getting for your fungal infection of the toes. This medication can affect your liver. You have an appointment with your podiatrists coming up. Please discuss other options with your photography teacher for fungal infection. We are sending you home with antibiotics. They are called Cefdinir and Metronidazole. Please make sure that you take your medications as prescribed. Follow Up Plan Follow Up Plan Please follow-up with your primary care provider within the week to discuss dementia, your liver function tests and other medication changes that you were concerned about. Also, follow-up with your surgeon within 2 weeks. Follow-up Provider (F9): Henry Jose DO Follow-up appointment: Weeks Call your provider for: Fever, Chills, Shortness of breath, Increasing abdominal pain, Nausea, Vomiting, Wound redness, Increasing wound pain, Warmth to touch, Discharge @ incision, pus discharge (1-2 weeks ) Additional Information Additional Information Please schedule a follow-up with Dr. Norwood, his surgeon in [address]. [address] Norwood, if there are no concerns at that time, there is no need to follow-up Andre Saxena MD 11/15/16 1714: Surgical Discharge Instruction Additional Information Attending Statement The patient was seen and examined together with Dr. Nieves on 11/14/2016 and I agree with the history, exam and plan as outlined in the note above. . Stephenie Nieves DO Nov 14, 2016 16:04 Andre Saxena MD Nov 15, 2016 17:14
[2016-11-14] MEDS ORDERED: CEFD300C3 PO (16:12)
[2016-11-14] MEDS ORDERED: METR500T19 PO (16:13)
--- NOTE | 2016-11-14 17:17 | PCM.PNSURG ---
Subjective Date of Service: Nov 14, 2016 Visit Information: Cholelithiasis Lap Zully with IOC 11/12/2016 Post-Op Day # 2 Date of Admission: Nov 12, 2016 at 00:52 Hospital Day # 3 Objective Vital Sign- Last 8 Hours Date Time Temp Pulse Resp B/P Pulse Ox O2 Delivery O2 Flow Rate FiO2 11/14/16 10:34 78 Intake and Output- Last 8 Hour 11/14/16 Cumulative From/Thru 07:00 11/11/16 18:48 - 11/14/16 06:22 Intake Total 470 ml 8202 ml Output Total 125 ml 1402 ml Balance 345 ml 6800 ml Intake Oral 0 ml 640 ml IV Total 470 ml 7562 ml Output Urine Total 125 ml 1400 ml Emesis 0 ml Estimated Blood Loss 2 ml # Voids 3 5 Abdomen: Soft, Other (Incisions C/D/I) Result Diagram: 11/14/16 0152 11/14/16 015 Assessment & Plan Impression Doing well from surgical standpoint Problems: Plan Follow up with us in 3 weeks, sooner if needed Resuscitation Status: DNR/DNI:Do Not Resuscitate/Intubate Samantha Norwood MD Nov 14, 2016 17:17
--- NOTE | 2016-11-14 17:37 | NUR ---
Discharge Pt agitated and passive aggressive to aggressive with speech. Occassionally pt was pleasant and cooperative with care. Pt refused to take all medications this AM. Prior to d/c he removed the IV himself and only allowed his to remove EKG stickers. is his primary caregiver and she was provided resources to contact [facility] to determine if he qualifies for medicaid. Spoke with and she feels safe taking pt home but is aware to notify police if she does feel unsafe. D/c instructions provided to pt and his . Pt talking about demons while instructions were given. acknowledges understanding of teaching. Notified of when to f/u with MD, both PCP and surgeon. as well as for any issues. Pt took all belongings home with him.
--- NOTE | 2016-11-14 23:22 | PCM.DC.MED ---
Discharge Summary Date of Service Nov 14, 2016 Dates of Hospitalization Date of Hospital Admission Nov 12, 2016 at 00:52 Date of Discharge: Nov 14, 2016 Providers: Admitting Physician: Contreras Pena MD Primary Care Physician: Henry Jose DO Attending Physician: Andre Saxena MD Diagnosis at Time of Discharge Diagnosis at Time of Discharge Acute cholecystitis status post laparoscopic cholecystectomy Sepsis secondary to acute cholecystitis Elevated liver function tests, improving Acute delirium on chronic dementia History of multiple CVA with resultant encephalopathy, aphasia, seizures, right hemiparesis Hypertension Atrial fibrillation Hyperlipidemia Consultations Gastroenterology and General Surgery were consulted Procedures XRay, CTs & MRIs 11/12/16 - CT ABDOMEN AND PELVIS WITH CONTRAST MPRESSION: 1. Cholelithiasis. There is mild gallbladder wall thickening with trace pericholecystic fluid and stranding suspicious for acute cholecystitis. 2. A 1.3 cm enhancing nodule in the posterior segment of the right hepatic lobe near the hepatic dome, unchanged. 3. Bilateral renal cysts.m Approved by: Pedro Pablo Cervantes M.D. on 11/12/2016 at 10:09 11/12/16 - US ABDOMEN, LIMITED IMPRESSION: Cholelithiasis and mild common bile duct dilation. No gallbladder wall thickening, pericholecystic fluid collection or sonographic Slater sign. If clinical symptoms persist or clinical suspicion for pathology is high, MRCP is suggested for further evaluation. Approved by: Pedro Pablo Cervantes M.D. on 11/12/2016 at 12:08 11/12/16 - MR ABDOMEN MRCP IMPRESSION: - Acute cholecystitis with associated gallbladder wall thickening and mild pericholecystic fluid/edema. - Cholelithiasis. - Motion degraded examination. - Bilateral renal cysts. Approved by: Ramses Bravo M.D. on 11/12/2016 at 16:28 11/12/16 - X-RAY OPERATIVE CHOLANGIOGRAM IMPRESSION: Normal intraoperative cholangiogram. Approved by: Pedro Pablo Cervantes M.D. on 11/12/2016 at 22:18 . Brief History Per H& P by Dr. Hassan on 11/12/16 Mr. Freeman is a 76-year-old gentleman with a history of hypertension, atrial fibrillation, dementia, CVA with development of aphasia, seizures, chronic encephalopathy, and right hemiparesis, that presented to the emergency department with complaints of a one day history of vomiting and associated abdominal pain. Initial evaluation revealed an elevated lactic acid 5.0, white count 29.2, and stat imaging revealed extrahepatic bile duct dilatation suggestive of choledocholithiasis. ED contacted GI, who kindly agreed to consult and proceed with ERCP. He is admitted for evaluation and treatment of sepsis secondary to choledocholithiasis and resultant cholangitis. - Hospital day one Patient is a 76-year-old gentleman but cannot recall why he presented to the emergency department today. At my time of evaluation, he was not oriented to time, or place; when asked how he was feeling and what brought him into the emergency department today, he responded that he should remain "mum" and that no one could be trusted. He reported his home as [facility] approximately "[place] away." Patient was uncertain if he were in a hospital, and he states that prior to my arrival, he urinated on the wall. Patient asked if I was a psychiatrist, of which, I replied "no." He was unable to convey the symptoms he was experiencing that brought him into the emergency department. After discussion with the ED physician, his was present prior to my arrival , but was not present during time of admission in my evaluation. At the time of admission, he denied any fever, chills, nausea, vomiting, abdominal pain, dysuria, hematuria, diarrhea, constipation. In the ED, T 36.4, P 89, RR 16, blood pressure 153/91, 94% on room air; initial labs revealed white count 29.2 with 90.1% neutrophils; LFTs significantly elevated with total bilirubin 4.1, AST 811, ALT 499, alkaline phosphatase 107; lactic acid 5.0; initial imaging including CT abdomen and pelvis with contrast and abdominal ultrasound which revealed extrahepatic biliary duct dilatation with approximately 7.7 mm diameter. ED kindly consulted gastroenterology, whom agreed to consult, and to proceed with ERCP, in addition to recommendations for continued antibiotics and fluids. Initial therapies included ceftriaxone and metronidazole, and 2 L normal saline. He was transported to medical floor in stable condition. Hospital Course Mr. Freeman is a 76-year-old gentleman with a history of hypertension, atrial fibrillation, dementia, CVA with development of aphasia, seizures, and right hemiparesis, that presented to the emergency department with complaints of a one day history of vomiting and associated abdominal pain. Initial evaluation revealed an elevated lactic acid 5.0, white count 29.2, and stat imaging revealed extrahepatic bile duct dilatation suggestive of choledocholithiasis. However, CT and MRCP showed cholecystitis and cholelithiasis without duct dilatation. Patient underwent laparoscopic cholecystectomy and recovered well after the procedure. He will be going home with 5 more days of antibiotics which include cefdinir and metronidazole. Sepsis secondary to acute cholecystitis, acute, present on admission, under evaluation - Likely secondary to choledocholithiasis, resultant cholangitis - on admit: WBC 29.2, lactic acid 5.0 - Initial antibiotics: Metronidazole, ceftriaxone - Current antibiotics: Cefepime plus metronidazole - Leukocytosis continues to improve after cholecystectomy and antibiotics Acute cholecystitis, present on admission, under evaluation - MRCP revealed no intra and extra-hepatic bile duct dilatation - GI consulted, consult order has been placed, we appreciate their input, they will see patient this afternoon - MRCP shows Acute cholecystitis with associated gallbladder wall thickening and mild pericholecystic fluid/edema. - Laparoscopic cholecystectomy performed by Dr. Norwood on 11/12/2016 - Okay to initiate DVT prophylaxis 24 hours after surgery Elevated liver function tests, acute, present on admission, under evaluation -On admission: LFTs significantly elevated with total bilirubin 4.1, AST 811, ALT 499, alkaline phosphatase 107 -Liver function tests significantly improved upon discharge -Hold atorvastatin and fluconazole -Ordered hepatitis panel and is negative Acute delirium on chronic dementia, present on admission, under evaluation -Patient has dementia at baseline and is more alert and awake today - Likely secondary to sepsis resulting from cholecystitis - Treat underlying infection -Follow-up with outpatient primary care physician for further workup History of multiple CVA with resultant encephalopathy, aphasia, seizures, and right hemiparesis, chronic, presumed stable - Resume home medications and appropriate - Keppra IV 500 mg twice daily was initiated, as patient is nothing by mouth, and with severe infection, and concurrent antibiotic use, seizure threshold is likely lower - Keppra levels normal Hypertension, chronic, presumed stable - Continue home dose metoprolol and amlodipine Atrial fibrillation, chronic, ongoing -Per telemetry, rate has been in the 80s to 100s -Continue home dose of metoprolol Hyperlipidemia, chronic, ongoing -Hold atorvastatin because of elevated LFTs Exam Vital Signs (Last) Date Time Temp Pulse Resp B/P Pulse Ox O2 Delivery O2 Flow Rate FiO2 11/14/16 10:34 78 11/14/16 08:55 36.4 18 128/78 92 Room Air 11/13/16 13:18 2.00 Exam General: Patient is sitting comfortably on chair, AAOX3, not in acute distress, cooperative and pleasant at times but can be volatile HEENT: head normocephalic and atraumatic, PERRLA, EOMI, no scleral icterus, noninjected conjunctiva Neck: neck supple, non-tender, no lymphadenopathy, trachea midline, no JVD CV: Irregularly irregular rate and rhythm, s1 and s2 heard, no murmur, radial pulses 2+ and equal bilaterally, no rubs murmurs or gallops, no edema Lungs: Clear to auscultation bilaterally, no wheezes, rales or rhonchi, no increased work of breathing Abdomen: Protuberant abdomen, normoactive bowel sounds on 4Q, soft, non- distended, non-tender to palpation, no organomegally, steri-strips over laparoscopic incisions, appearing to be healing well Skin: warm and dry Musculoskeletal: Unstable gait Neuro: Grossly neurologically intact, cranial nerves II through XII intact Psych: patient agitated and confused at times Test 11/11/16 20:45 11/12/16 02:23 11/12/16 10:26 11/13/16 02:45 Magnesium Level 1.8mg/dL (1.6-2.6) Prothrombin Time 13.2sec (8.1-12.5) Prothromb Time International Ratio 1.23ratio Activated Partial Thromboplast Time 30.6sec (22.8-33.0) Hepatitis A IgM Antibody Negative (Negative) Hepatitis B Surface Antigen Negative (Negative) Hepatitis B Core IgM Antibody Negative (Negative) Hepatitis C Antibody <0.1s/co ratio (0.0-0.9) Hepatitis C Comment Comment (.) Urine Color Dark yellow (YELLOW) Urine Appearance Clear (CLEAR,HAZY) Urine pH 6.0 (5.0-8.0) Urine Specific Orange 1.026 (1.003-1.035) Urine Protein Tracemg/dL (NEG,TRACE) Urine Glucose (UA) Negativemg/dL (NEGATIVE) Urine Ketones 15mg/dL (NEGATIVE) Urine Occult Blood Moderate (NEGATIVE) Urine Nitrite Negative (NEGATIVE) Urine Bilirubin Moderate (NEGATIVE) Urine Ictotest Positive (Negative) Urine Urobilinogen 1.0mg/dL (NORMAL) Urine Leukocyte Esterase Negative (NEGATIVE) Urine RBC 11-50/hpf (0-2) Urine WBC 0-5/hpf (0-5) Urine Epithelial Cells Few/hpf (NONE-MOD) Urine Crystals None seen (NONE SEEN) Urine Bacteria Few/hpf (NONE-FEW) Urine Hyaline Casts None/lpf (NONE) Urine Granular Casts None seen (NONE SEEN) Urine Waxy Casts None seen (NONE SEEN) Urine Red Blood Cell Casts None seen (NONE SEEN) Urine White Blood Cell Casts None seen (NONE SEEN) Urine Mucus None seen (None Seen) Urine Trichomonas None seen (NONE SEEN) Urine Yeast None (NONE SEEN) Urinalysis Comment None Urine Culture Reflexed Not indicated Test 11/13/16 08:26 11/14/16 01:52 Lactic Acid Level 1.2mmol/L (0.4-2.0) Procalcitonin 0.90ng/mL (0.00-0.08) White Blood Count 11.8th/mm3 (3.8-10.1) Red Blood Count 4.21mil/mm3 (4.40-5.80) Hemoglobin 12.3g/dL (13.8-17.2) Hematocrit 37.0% (41.0-50.0) Mean Corpuscular Volume 87.9fL (81-100) Mean Corpuscular Hemoglobin 29.2pg (27.0-35.0) Mean Corpuscular Hemoglobin Concent 33.2% (32.0-37.0) Red Cell Distribution Width 13.3% (12.3-15.4) Platelet Count 185bil/L (150-400) Neutrophils (%) (Auto) 79.2% (40-74) Lymphocytes (%) (Auto) 8.2% (14-46) Monocytes (%) (Auto) 10.0% (4-12) Eosinophils (%) (Auto) 0.5% (0-5) Basophils (%) (Auto) 0.8% (0-3) Band Neutrophils % 1% (1-5) Sodium Level 141mEq/L (134-144) Potassium Level 4.0mEq/L (3.5-5.2) Chloride Level 108mEq/L (97-108) Carbon Dioxide Level 21mmol/L (18-29) Blood Urea Nitrogen 16mg/dL (8-27) Creatinine 1.00mg/dL (0.76-1.27) Estimat Glomerular Filtration Rate 78mL/min (>59) Glucose Level 92mg/dL (60-99) Calcium Level 7.9mg/dL (8.5-10.1) Total Bilirubin 2.0mg/dL (0.0-1.2) Aspartate Amino Transf (AST/SGOT) 61U/L (0-50) Alanine Aminotransferase (ALT/SGPT) 185U/L (0-44) Alkaline Phosphatase 137U/L (25-160) Total Protein 5.3g/dL (6.4-8.4) Albumin 2.9g/dL (3.4-5.0) Lipase 12U/L (13-60) Discharge Medications Discharge Medications Amlodipine (Amlodipine) 5 Mg Tablet 5 MG PO DAILY Prescribed by: Bev CAICEDO Aspirin (Aspirin) 81 Mg Tablet 81 MG PO DAILY (Reported) Atorvastatin (Lipitor) 20 Mg Tablet 40 MG PO HS Prescribed by: VINCE WHITNEY DO, RESIDENT Cefdinir (Cefdinir) 300 Mg Capsule 300 MG PO BID Prescribed by: Bev CAICEDO Dabigatran Etexilate Mesylate (Pradaxa) 150 Mg Capsule 150 MG PO BID (Reported) Fluticasone Propionate (Fluticasone Propionate Nasal) 16 Gm Ringold.susp 2 SPRAY NS DAILY (Reported) Levetiracetam (Keppra) 500 Mg Tablet 500 MG PO BID Prescribed by: MAYI ALLEN MD Metoprolol Tartrate (Metoprolol Tartrate) 50 Mg Tablet 50 MG PO BID Prescribed by: Bev CAICEDO Metronidazole (Metronidazole) 500 Mg Tablet 500 MG PO TID Prescribed by: Bev CAICEDO Quetiapine Fumarate (Quetiapine Fumarate) 25 Mg Tablet 25 MG PO HS Prescribed by: Bev CAICEDO As needed Acetaminophen (Acetaminophen) 325 Mg Tablet 650 MG PO Q4H PRN PRN For Pain ( Reported) Polyethylene Glycol 3350 (Miralax) 17 Gm Powd.pack 17 GM PO DAILY PRN PRN For Constipation (Reported) Followup Plan Disposition: Patient will be discharged to home Follow-up plan Please follow-up with your primary care provider within the week to discuss dementia, your liver function tests and other medication changes that you were concerned about. Also, follow-up with your surgeon within 3 weeks. If there are no concerns with regards to the procedure, you can forego follow-up with the surgeon. Follow-up Provider: Henry Jose DO Follow-up with PCP in: 1 week Provider: Samantha Norwood MD Follow-up in: 3 weeks Time spent Greater than 30 minutes was spent in preparation of discharge with greater than 50% of that time dedicated to patient counseling and coordination of care. . Attending Statement The patient was seen and examined together with Dr. Nieves on 11/14/2016 and I agree with the history, exam and plan as outlined in the note above. . copies to: Henry Jose Alexa N DO Nov 14, 2016 23:22 Andre Saxena MD Nov 15, 2016 17:15
--- NOTE | 2016-11-17 10:15 | PATH ---
SURGICAL PATHOLOGY Attending Physician:Samantha Norwood MD CASE STATUS: Signed Out PATIENT NAME: ZEB BEARD PID: [id number] : 1940 DATE COLLECTED:11/12/2016 00:00 SPECIMEN: Gallbladder CLINICAL HISTORY: CHOLEDOCHOLITHIASIS 1). GALLBLADDER AND CONTENTS FINAL DIAGNOSIS: Gallbladder, Excision: Acute necrotizing cholecystitis. Negative for dysplasia or malignancy. ICD10: K81.0 GROSS DESCRIPTION: The specimen is received in one formalin filled container labeled with the patient's name, sublabeled "gallbladder" and consists of a slightly opened 8.0 x 3.5-2.0 single bladder. The serosa is smooth. The wall is 0.2-0.6 CM in thickness. The mucosa is a dark red in color. The lumen contains a dark red clotted blood and no calculus are noted. 5 representative phlebotomy services sections are submitted in one cassette. 11/15/2016NE ICD-9 CODES: CPT CODES: 1: [id number] Electronically Signed Out Tavo Jacobson MD, PhD [facility] [address], [place] [address] Technical component performed at [facility], [facility] [address], [address]
== END 2016-11-14 17:30 | disposition home or self-care (01) | DRG 853 ==
LOC: SED 18:46 → PCC 11-12 00:52
PROVIDERS: ADMIT Hospitalist; ATTEND Hospitalist
PROC: BF121ZZ Fluoroscopy of Gallbladder using Low Osmolar Contrast (ICD-10-PCS; 2016-11-12)
PROC: 0FT44ZZ Resection of Gallbladder, Percutaneous Endoscopic Approach (ICD-10-PCS; principal; 2016-11-12 19:30)
DX: A41.9 Sepsis, unspecified organism (principal); G93.49 Other encephalopathy; K81.0 Acute cholecystitis; F05 Delirium due to known physiological condition; I69.351 Hemiplegia and hemiparesis following cerebral infarction affecting right dominant side; F91.8 Other conduct disorders; E66.9 Obesity, unspecified; Z68.34 Body mass index [BMI] 34.0-34.9, adult; I10 Essential (primary) hypertension; Z79.02 Long term (current) use of antithrombotics/antiplatelets; I69.320 Aphasia following cerebral infarction; F03.90 Unspecified dementia, unspecified severity, without behavioral disturbance, psychotic disturbance, mood disturbance, and anxiety; I48.2 Chronic atrial fibrillation; Z66 Do not resuscitate; R94.5 Abnormal results of liver function studies